=== PATIENT | female | born 1970 | race Caucasian/White ===

== ENCOUNTER 2017-10-26 18:20 | Inpatient (IN) | payer BC ==
[2017-10-26] MEDS ORDERED: ALTEPLASE 100 MG/100 ML VIAL IV ONE ×2 (18:26→18:34)
[2017-10-26] MEDS ORDERED: LIDOCAINE 2% 100 MG/5 ML SYR ONE (18:35)
[2017-10-26] MEDS ORDERED: fentaNYL 100 MCG/2 ML INJ ONE (18:35)
[2017-10-26] MEDS ORDERED: niCARdipine/NACL/200 ML BAG IV ONE (18:38)
--- NOTE | 2017-10-26 18:38 | EDPHY ---
H & P Time Seen by Provider: 10/26/17 18:24 HPI/ROS: HPI Stroke alert, left-sided weakness. 47-year-old female by private vehicle with her . reports that 10 min prior to arrival at approximately 6:10 p.m., the patient was at the refrigerator holding a carton of milk when she suddenly dropped it and appeared to have left-sided weakness and started slurring her speech. The patient denies headache. She is not on antiplatelet or anticoagulation medication. ROS: Constitutional: No fever, no chills. As above. Eyes: No discharge. No changes in vision. ENT: No sore throat. No nasal congestion or rhinorrhea. Respiratory: No cough. No shortness of breath. Cardiac: No chest pain, no palpitations. Gastrointestinal: No abdominal pain, no vomiting, no diarrhea. Genitourinary: No hematuria. No dysuria or increased frequency with urination. Musculoskeletal: No back pain. No neck pain. No myalgias or arthralgias. Skin: No rashes. Neurological: No headache. As above. Past medical history: Anxiety. PTSD. She takes alprazolam and Wellbutrin. Social history: Nonsmoker. Here with her . No alcohol today. Physical Exam: General Appearance: Drowsy, not in distress. Response to questioning was short answers and dysarthric speech. This patient appears generally well- hydrated and well-nourished. Head: Normocephalic atraumatic. Eyes: Pupils equal and round at 3-2 mm bilaterally, no pallor or injection. No lid edema, erythema or injection. No nystagmus. ENT, Mouth: Mucous membranes are moist. The pharyngeal tissues are unremarkable. No edema or swelling. No asymmetry suggestive of abscess. No erythema or exudates. Respiratory: There are no retractions, lungs are clear to auscultation with good air movement bilaterally. Cardiovascular: Regular rate and rhythm. No murmur. Gastrointestinal: Abdomen is soft and nontender, no masses, bowel sounds normal. No focal tenderness at McBurney's point. No Galarza sign. Neurological: Marked motor weakness involving the left upper and left lower extremity. Expressive aphasia. Skin: Warm and dry, no rashes. Musculoskeletal: Neck is supple and nontender. Extremities are symmetrical. All joints range without pain or impingement. Psychiatric: No agitation. Database: EKG: EKG time is 6:41 p.m.; EKG shows a narrow complex normal sinus rhythm with a ventricular rate of 87. 1st degree block noted. Nonspecific intraventricular conduction delay noted. The QRS, QT intervals are within normal limits. There are no ST-T wave changes indicative of ischemic or injury pattern. No evidence of right heart strain. Interpreted by me. Imaging: CT scan of head without contrast: Significant for a right-sided intraparenchymal bleed involving the thalamus/basal ganglia. She does not have a significant shift. Results were discussed with staff radiologist Dr. Raudel Cox. Procedures: Emergency department course: IV established, advanced airway did bedside, patient placed on a night monitor , patient placed on oxygen at 4 L by nasal cannula. After my initial assessment patient sent for noncontrast CT scan of head. Stroke alert protocol initiated. 6:25 p.m., discussed case with [place] neurologist. Results of CT scan and hemorrhagic stroke discussed. Patient is not a tPA candidate. 6:30 p.m., patient's initial blood pressure 220/135. Nicardipine drip initiated at 5 milligrams/hour with target BP of 140-160 systolic. 6:35 p.m., spoke with on-call neurosurgeon Dr. Aubrey Burrows. He recommends blood pressure control as above and admit to hospitalist service with Neurosurgery and Neurology to consult. He does not recommend antiepileptic medication at this time. 7:00 p.m., patient re-evaluated. Blood pressure 149/95 on 7.5 milligrams/hour nicardipine. Eyes are closed. But responds appropriately to questions. Denies pain. Hospitalist paged. 7:15 p.m., spoke with hospitalist. Patient accepted for admission to the ICU under the care of the hospitalist service. Neuro surgery to follow. No change in the patient's neurologic status from 7:00 p.m. Evaluate. Systolic blood pressure currently 158. Patient admitted to the ICU in stable but guarded condition. Differential Diagnosis: The differential diagnosis on this patient includes but is not limited to hemorrhagic CVA. Thrombotic CVA, seizure unlikely. This represents a partial list of diagnoses considered. These considerations are based on history, physical exam, past history, reassessment and diagnostic testing. Constitutional: Initial Vital Signs Temperature (C) 36.4 C 05/17/18 18:20 Heart Rate 77 10/26/17 18:20 Respiratory Rate 14 10/26/17 18:20 Blood Pressure 186/117 H 10/26/17 18:20 O2 Sat (%) 96 10/26/17 18:20 O2 Delivery Mode Non-Rebreather Mask O2 (L/minute) 100 Allergies/Adverse Reactions: No Known Allergies Allergy (Unverified 10/26/17 18:33) Home Medications: Medication Instructions Recorded Ibuprofen [Motrin (*)] 400 - 600 mg PO DAILY PRN 10/26/17 Loratadine/Pseudoephedrine 1 each PO BID PRN 10/26/17 [Claritin-D 12 Hour Tablet] buPROPion XL [Wellbutrin Xl] 150 mg PO DAILY 10/26/17 clonazePAM [Klonopin (*)] 0.25 - 0.5 mg PO BID PRN 10/26/17 Medical Decision Making - Diagnostics Imaging Results: Imaging Impressions Chest X-Ray 10/26/17 18:25 Impression: Hypoventilated clear lungs. Head CT 10/26/17 18:25 Impression: 1. Large intraparenchymal hemorrhage centered in the right basal ganglia extending superiorly into the centrum semiovale. Differential diagnosis for etiology consists of hypertension, underlying mass, or vascular malformation. 2. Trace subarachnoid hemorrhage along the right sylvian fissure. 3. Minimal surrounding mass effect and 2 to 3 mm of right to left shift. 4. 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 Findings discussed with Emergency Department physician, Yash Dewitt MD, on 10/26/2017, 18:31. Critical Care Time: I spent a total of 42 minutes of critical care time in obtaining history, performing a physical exam, bedside monitoring of interventions, collecting and interpreting tests and discussion with consultants but not including time spent performing procedures. - Data Points Laboratory Results: Laboratory Results 10/26/17 18:30 10/26/17 18:30 10/26/17 10/26/17 10/26/17 18:30 18:30 18:30 WBC 6.95 10^3/uL 10^3/uL (3.80-9.50) RBC 4.20 10^6/uL 10^6/uL (4.18-5.33) Hgb 13.8 g/dL g/dL (12.6-16.3) Hct 39.1 % % (38.0-47.0) MCV 93.1 fL fL (81.5-99.8) MCH 32.9 pg pg (27.9-34.1) MCHC 35.3 g/dL g/dL (32.4-36.7) RDW 12.3 % % (11.5-15.2) Plt Count 285 10^3/uL 10^3/uL (150-400) MPV 9.4 fL fL (8.7-11.7) Neut % (Auto) 52.3 % % (39.3-74.2) Lymph % (Auto) 35.8 % % (15.0-45.0) [place] % (Auto) 9.2 % % (4.5-13.0) Eos % (Auto) 2.0 % % (0.6-7.6) Baso % (Auto) 0.6 % % (0.3-1.7) Nucleat RBC Rel Count 0.0 % % (0.0-0.2) Absolute Neuts (auto) 3.63 10^3/uL 10^3/uL (1.70-6.50) Absolute Lymphs (auto) 2.49 10^3/uL 10^3/uL (1.00-3.00) Absolute Monos (auto) 0.64 10^3/uL 10^3/uL (0.30-0.80) Absolute Eos (auto) 0.14 10^3/uL 10^3/uL (0.03-0.40) Absolute Basos (auto) 0.04 10^3/uL 10^3/uL (0.02-0.10) Absolute Nucleated RBC 0.00 10^3/uL 10^3/uL (0-0.01) Immature Gran % 0.1 % % (0.0-1.1) Immature Gran # 0.01 10^3/uL 10^3/uL (0.00-0.10) PT 12.4 SEC SEC (12.0-15.0) INR 0.90 (0.83-1.16) Sodium 129 mEq/L L mEq/L (135-145) Potassium 4.2 mEq/L mEq/L (3.3-5.0) Chloride 91 mEq/L L mEq/L (97-110) Carbon Dioxide 27 mEq/l mEq/l (22-31) Anion Gap 11 mEq/L mEq/L (8-16) BUN 15 mg/dL mg/dL (7-23) Creatinine 0.8 mg/dL mg/dL (0.6-1.0) Estimated GFR > 60 Glucose 97 mg/dL mg/dL (70-100) Calcium 9.9 mg/dL mg/dL (8.5-10.4) Medications Given: Potassium Chloride/Sodium Chloride (Ns W/ 20 Kcl/L) 1,000 mls @ 75 mls/hr IV CONT FREDDIE Stop: 04/24/18 19:29 Last Admin: 10/26/17 20:34 Dose: 1,000 mls Discontinued Medications Nicardipine/Sodium Chloride (Cardene 0.1 Mg/Ml (Premix)) 200 mls @ 0 mls/hr IV EDNOW ONE; Titrate PRN Reason: Protocol Stop: 10/26/17 18:40 Last Admin: 10/26/17 18:43 Dose: 200 mls Departure - Departure Disposition: [facility] Inpatient Acute Clinical Impression: Hemorrhagic cerebrovascular accident (CVA)
[2017-10-26] MEDS ORDERED: niCARdipine/NACL 200 ML IV ONE (18:39)
[2017-10-26 18:47] LABS: PLATELET COUNT 285 10^3/uL (150-400)
[2017-10-26 18:56] LABS: INR 0.9 (0.83-1.16); PROTIME(PATIENT) 12.4 SEC (12.0-15.0)
--- NOTE | 2017-10-26 18:58 | CPEKG ---
Heart Rate: 87 RR Interval: 690 P-R Interval: 220 QRSD Interval: 114 QT Interval: 400 QTC Interval: 482 P [place]: 37 QRS [place]: 4 T Wave [place]: 44 EKG Severity - ABNORMAL ECG - EKG Impression: SINUS RHYTHM EKG Impression: FIRST DEGREE AV BLOCK EKG Impression: PROBABLE LEFT ATRIAL ABNORMALITY EKG Impression: NONSPECIFIC INTRAVENTRICULAR CONDUCTION DELAY EKG Impression: LEFT VENTRICULAR HYPERTROPHY Electronically Signed By: Go Mendez 26-Oct-2017 18:58:14
[2017-10-26] MEDS ORDERED: ONDANSETRON DISINTEGRATING 4 MG TAB PO PRN (19:22)
[2017-10-26] MEDS ORDERED: LORazepam 2 MG/ML INJ IVP PRN (19:22)
[2017-10-26] MEDS ORDERED: ONDANSETRON 4 MG/2 ML VIAL IVP PRN (19:22)
[2017-10-26] MEDS ORDERED: LORazepam 0.5 MG TAB PO PRN (19:22)
[2017-10-26] MEDS: NS W/ 20 KCl/L 1,000 ML IV SCH (20:34)
--- NOTE | 2017-10-26 20:40 | PDGENHP ---
History and Physical - Chief Complaint stroke alert - History of Present Illness 47-year-old female with hx of untreated HTN p/w reportiing that 10 min prior to arrival at approximately 6:10 p.m., the patient was at the refrigerator holding a cart of milk when she suddenly dropped it and appeared to have left-sided weakness and started slurring her speech. The patient denies headache. She is not on antiplatelet or anticoagulation medication. In the E.D. CT Brain reveals intraparenchymal hemorrhage affecting the right basal ganglia. Dr. Burrows with NS was consulted by the E.D. and per their report no indication for urgent surgery is present. BP was slightly elevated on admission and has been controlled with Nicardipine. Per ED report, NS did not recommend antiepileptic or other meds She is seen in the ICU and continues to have inability to move her LUE and left lower extremity. She seems to have some difficulty with speech BP is in the 140's systolic Past medical history: Anxiety. PTSD. She takes alprazolam and Wellbutrin. HTN (untreated) Social history: Nonsmoker. Here with her . daily social ETOH FmHx: grandmother with stroke in her 80's History Information - Allergies/Home Medication List Allergies/Adverse Reactions: No Known Allergies Allergy (Unverified 10/26/17 18:33) Home Medications: Ibuprofen [Motrin (*)] 400 - 600 mg PO DAILY PRN 10/26/17 [Last Taken 10/26/17] Loratadine/Pseudoephedrine [Claritin-D 12 Hour Tablet] 1 each PO BID PRN [Last Taken Unknown] buPROPion XL [Wellbutrin Xl] 150 mg PO DAILY 10/26/17 [Last Taken Unknown] clonazePAM [Klonopin (*)] 0.25 - 0.5 mg PO BID PRN 10/26/17 [Last Taken Unknown] I have personally reviewed and updated: medical history, social history - Social History Smoking Status: Never smoked Review of Systems Review of Systems: ROS: 10pt was reviewed & negative except for what was stated in HPI & below Physical Exam Physical Exam: Temp Pulse Resp BP Pulse Ox 36.5 C 83 16 137/75 H 100 10/26/17 19:40 10/26/17 20:00 10/26/17 20:00 10/26/17 20:00 10/26/17 20:00 O2 (L/minute) 2 Constitutional: no apparent distress Eyes: PERRL, EOMI Ears, Nose, Mouth, Throat: moist mucous membranes Cardiovascular: regular rate and rhythym, No edema Respiratory: no respiratory distress, no rales or rhonchi, clear to auscultation Gastrointestinal: normoactive bowel sounds, soft, non-tender abdomen Skin: warm Neurologic: AAOx3, other (cant move her left upper extremity or LLE. Some difficulty with speech. Alert and oriented x 3. Able to follow commands. ) Psychiatric: not encephalopathic Lymph, Heme, Immunologic: No petechiae Lab Data & Imaging Review 10/26/17 18:30 10/26/17 18:30 WBC 6.95 10^3/uL (3.80-9.50) 10/26/17 18:30 RBC 4.20 10^6/uL (4.18-5.33) 10/26/17 18:30 Hgb 13.8 g/dL (12.6-16.3) 10/26/17 18:30 Hct 39.1 % (38.0-47.0) 10/26/17 18:30 MCV 93.1 fL (81.5-99.8) 10/26/17 18:30 MCH 32.9 pg (27.9-34.1) 10/26/17 18:30 MCHC 35.3 g/dL (32.4-36.7) 10/26/17 18:30 RDW 12.3 % (11.5-15.2) 10/26/17 18:30 Plt Count 285 10^3/uL (150-400) 10/26/17 18:30 MPV 9.4 fL (8.7-11.7) 10/26/17 18:30 Neut % (Auto) 52.3 % (39.3-74.2) 10/26/17 18:30 Lymph % (Auto) 35.8 % (15.0-45.0) 10/26/17 18:30 [place] % (Auto) 9.2 % (4.5-13.0) 10/26/17 18:30 Eos % (Auto) 2.0 % (0.6-7.6) 10/26/17 18:30 Baso % (Auto) 0.6 % (0.3-1.7) 10/26/17 18:30 Nucleat RBC Rel Count 0.0 % (0.0-0.2) 10/26/17 18:30 Absolute Neuts (auto) 3.63 10^3/uL (1.70-6.50) 10/26/17 18:30 Absolute Lymphs (auto) 2.49 10^3/uL (1.00-3.00) 10/26/17 18:30 Absolute Monos (auto) 0.64 10^3/uL (0.30-0.80) 10/26/17 18:30 Absolute Eos (auto) 0.14 10^3/uL (0.03-0.40) 10/26/17 18:30 Absolute Basos (auto) 0.04 10^3/uL (0.02-0.10) 10/26/17 18:30 Absolute Nucleated RBC 0.00 10^3/uL (0-0.01) 10/26/17 18:30 Immature Gran % 0.1 % (0.0-1.1) 10/26/17 18:30 Immature Gran # 0.01 10^3/uL (0.00-0.10) 10/26/17 18:30 PT 12.4 SEC (12.0-15.0) 10/26/17 18:30 INR 0.90 (0.83-1.16) 10/26/17 18:30 Sodium 129 mEq/L (135-145) L 10/26/17 18:30 Potassium 4.2 mEq/L (3.3-5.0) 10/26/17 18:30 Chloride 91 mEq/L (97-110) L 10/26/17 18:30 Carbon Dioxide 27 mEq/l (22-31) 10/26/17 18:30 Anion Gap 11 mEq/L (8-16) 10/26/17 18:30 BUN 15 mg/dL (7-23) 10/26/17 18:30 Creatinine 0.8 mg/dL (0.6-1.0) 10/26/17 18:30 Estimated GFR > 60 10/26/17 18:30 Glucose 97 mg/dL (70-100) 10/26/17 18:30 Calcium 9.9 mg/dL (8.5-10.4) 10/26/17 18:30 Assessment & Plan Assessment: #Hemorrhagic cerebrovascular accident (CVA) (Acute) -LUE and LLE weakness -Expressive Aphasia #HTN, untreated #Hyponatremia, in setting of Euvolemia Plan: Admit ICU Nicardipine drip, goal BP 140's-160's systolic NS to consult repeat imaging per NS tomorrow Check lipid panel, A1C NPO for now until cleared PT/OT/Speech urine studies for further eval of hyponatremia SCD's total critical care time spent on the mgmt of this patient with acute CVA and on a Nicardipine drip is 50 minutes
[2017-10-27 04:36] LABS: PLATELET COUNT 275 10^3/uL (150-400)
--- NOTE | 2017-10-27 06:00 | GCON ---
[f rep st] CONSULTATION DATE OF CONSULTATION: 10/26/2017 CONSULTING SERVICE: Emergency Medicine. AV SPECIALIST: Neurosurgery, Dr. Maciel. REASON FOR CONSULT: Right basal ganglia hemorrhage in setting of hypertensive emergency. HISTORY OF PRESENT ILLNESS: The patient is a 47-year-old female brought in by her , reported that at approximately 6:10 this evening, she was at the refrigerator holding a carton of milk and the n suddenly dropped it and appeared to have left-sided weakness and slurred speech. Patient is denyin g any headaches. She is not taking any anticoagulants. When she presented, she was found to have sy stolic blood pressure greater than 200. A head CT was performed with findings consistent with a righ t basal ganglia hemorrhage without significant midline shift nor mass effect. The bleed itself is si zable. PAST MEDICAL AND SURGICAL HISTORY: Per HPI, anxiety, posttraumatic stress disorder. HOME MEDICATIONS: Xanax and Wellbutrin. CODE STATUS: Full. ALLERGIES: No known drug allergies. SOCIAL HISTORY: Nonsmoker. . denies extensive alcohol or drug abuse. FAMILY HISTORY: No known strokes in the family. REVIEW OF SYSTEMS: Ten points were reviewed with the . Unable to obtain from the patient giv en her impaired state post stroke. PHYSICAL EXAM: VITALS: Current blood pressure is 145/96, heart rate is 89. The patient's respirato ry rate is 14, she is saturating 99% on a non-rebreather. NEUROLOGIC: Patient has eyes closed. She will open them to open voice. She will regard me in her left hemifield, but prefers the right field . She has equal and reactive pupils. Has a left-sided facial droop. She follows commands briskly i n the right upper and right lower extremity, but is densely paretic on the left upper and lower extre mities. LABS: White blood cell count 6.9, hemoglobin 13.8, platelet count 285. INR 0.9. Sodium is 129, pot assium is 4.2, BUN is 15, creatinine is 0.8, glucose is 97. REVIEW OF IMAGING: I reviewed the patient's noncontrasted head CT and agree that she has a large bas al ganglia hemorrhage on the right side consistent with her hypertensive presentation. She has signs of old strokes in the left caudate nucleus as well. IMPRESSION/PLAN: Rgmsn[age][id number]-old female who presents with a large right basal ganglia hemorrhag e in the setting of systolic hypertension and hypertensive emergency with corresponding dense left he miparesis. She will be admitted to the ICU under Medicine for tight blood pressure control, on a Car dene drip, less than 140 systolic strictly. She can have a repeat head CT with CT angiogram tomorrow morning to rule out underlying vascular lesion as the cause of her stroke, although I suspect this i s hypertensive given her presentation and the location of the bleed. Stroke Neurology consult can be considered. We are following along. /[id number]/MODL
--- NOTE | 2017-10-27 07:52 | NEUSURGPN ---
Assessment/Plan: 47F with right BG bleed with hypertension. Left sided neglect and weakness -CT angio pending -SBP goal <140 -PT/OT -Appreciate neurology/medicine input -Occasional high UOP, will continue to monitor -Discussed with Dr. Maciel -Please notify NS with any change in neuro/motor exam Subjective: Denies any pain Objective: NAD, A&Ox3, left facial droop, PERRLA, EOMI, Left UE and LE /5, RUE and RLE 10/14 Catheter Insertion Date: 10/26/17 - Physician Discussed Patient with : Janell Neurosurgery Physical Exam - Vitals, I&O, Labs I and O 10/26/17 10/27/17 10/28/17 05:59 05:59 05:59 Intake Total 1130 Output Total 2725 Balance -1595 Weight 72.5 kg Intake: IV Infused (ml) 1130 NS W/ 20 KCl/L 1,000 ml @ 980 75 mls/hr IV CONT FREDDIE Rx #:[id number] niCARdipine/NACL 200 ml @ 150 Titrate IV CONT FREDDIE Rx#: [id number] Output: Urine (ml) 2725 Catheter 2725 Other: Number of Voids Incontinence 1 Vital Signs Temp Pulse Resp BP Pulse Ox 37.0 C 72 12 137/76 H 97 10/27/17 04:00 10/27/17 06:00 10/27/17 06:00 10/27/17 06:00 10/27/17 06:00 Laboratory Results 10/27/17 04:25 10/27/17 04:25 ICD10 Worksheet Patient Problems: Problems Problem Status Onset Hemorrhagic cerebrovascular accident (CVA) Acute
--- NOTE | 2017-10-27 09:29 | ASMTCASEMG ---
Living Arrangements What is your living Answers: With Spouse arrangement? Who do you live with? Type Of Residence What kind of residence do Answers: Apartment you live in? Discharge Plan Comments Coordination Status Comments Notes: Patient is a 47yo female who was admitted for hemorrhagic cerebrovascular accident, LUE and LLE weakness, expressive aphasia, HTN, untreated, and hyponatremia.PT/OT/TATTOO AND BODY ARTIST have been ordered. D/C needs TBD. CM will follow. Date Signed: 10/27/2017 09:29 AM Electronically Signed By:Oma Slater LCSW
--- NOTE | 2017-10-27 10:19 | PDMN ---
Medical Necessity Medical necessity: Patient meets inpatient criteria per physician note and [facility] M -85 Stroke: Hemorrhagic - 3 days - (patient presents with sudden L hemiparesis and slurred speech; CT shows R basal ganglia hemorrhage, likely due to hypertensive emergency; anticipated LOS > 2 midnights for IV Cardene gtt for B/ P control, PT/OT/ST.)
[2017-10-27] MEDS ORDERED: IOPAMIDOL (ISOVUE 370) 100 ML BTL IV ONE (11:08)
[2017-10-27] MEDS: niCARdipine/NACL 200 ML IV SCH ×4 (12:20→22:11)
--- NOTE | 2017-10-27 15:28 | GCON ---
[f rep st] CONSULTATION PULMONARY/CRITICAL CARE CONSULTATION DATE OF CONSULTATION: 10/27/2017 REFERRING PHYSICIAN: Yehuda Garcia MD REASON FOR CONSULTATION: Evaluation and management of hypertension status post stroke. HISTORY: The patient is a 47-year-old woman with a history of untreated hypertension who was in her usual state of good health until yesterday evening when she was standing at the refrigerator holding some milk when she suddenly dropped it and had left-sided weakness and slurred speech. She presented immediately to the emergency department where a CT scan demonstrated intraparenchymal hemorrhage in the right basal ganglia. Neurosurgery was consulted and no surgical intervention was planned. She had severe hypertension at admission, with initial blood pressure of 186/117 and subsequent blood pressure of 207/110. She was started on nicardipine with a goal of keeping her systolic blood pressure less than 140, and this has been accomplished with the exception of a recent increase in systolic blood sugar to the 150s to 160s after her CT scan of the head this morning, at which point, nicardipine was restarted. The patient currently denies any headache and feels well with the exception of the weakness and dysarthria. She has been able to start eating. PAST MEDICAL HISTORY: 1. Depression/anxiety 2. PTSD 3. Hypertension. MEDICATIONS: At the time of admission, Claritin-D, bupropion, clonazepam, and ibuprofen. ALLERGIES: None. SOCIAL HISTORY: The patient is a nonsmoker. She drinks alcohol occasionally. FAMILY HISTORY: Unremarkable. REVIEW OF SYSTEMS: A 10-point review of systems adds nothing to the history of present illness. PHYSICAL EXAMINATION: GENERAL: The patient is awake, alert, in no acute distress. VITAL SIGNS: Her blood pressure is 131/73, heart rate 76, oxygen saturations are 100% on room air. HEENT: Normocephalic and atraumatic. No icterus. NECK: No adenopathy. Trachea is midline. CHEST: Clear to auscultation. CARDIAC: Regular rate and rhythm without murmur. ABDOMEN: Soft, nontender. Bowel sounds are present. EXTREMITIES: No clubbing, cyanosis, or edema. NEURO: The patient is awake, alert, and oriented x3. She has a left facial droop and 0/ 5 to 1/5 strength in her left upper and lower extremities with normal strength in her right. LABORATORY: CBC is normal. Chemistry group is remarkable for sodium of 133, up from 129. A glucose is 116. An INR is 0.9. A urine osmolality was [address] scan and CT angiogram of the head today shows a right basal ganglia hemorrhage with some mass effect/shift, partial compression of the ventricle. The degree of hemorrhage is slightly greater than last night. Images were reviewed by me. ASSESSMENT: 1. Acute right basal ganglia bleed. Patient has been seen by Neurosurgery, and it is not felt that there is an indication for urgent surgical intervention. 2. Hypertension. The patient has chronic hypertension. This could have been exacerbated by her use of oral decongestant. This has been well controlled with nicardipine. She was off it for a while but is now back on, and her blood pressure is well controlled. 3. Dysphagia. The patient is on a pureed diet which she is tolerating well. 4. Anxiety/depression. The patient is usually on Wellbutrin would like to get that started. RECOMMENDATIONS: 1. Continue nicardipine p.r.n. 2. Speech Therapy to continue to follow and make recommendations regarding advancing diet. 3. We will resume Wellbutrin. 4. Hold oral decongestants and anti-platelet agents. /[id number]/MODL and [id number]/MODL [facility]
--- NOTE | 2017-10-27 18:07 | HOSPPROG ---
Hospitalist Progress Note Assessment/Plan: DIAGNOSES: # Hemorrhagic cerebrovascular accident (CVA) (Acute) * LUE and LLE paralysis persist, along with left-sided neglect * Expressive Aphasia is partial she is able to communicate today * Has been able to start eating after swallow eval with moist pureed textured foods # Hypertensive Emergency * untreated hypertension at home * In addition she has been using decongestant at home and wonder if this may be causing higher blood pressures there * Currently requiring ongoing use of Cardene drip for goal of systolic less than 140 * Want to add some oral medication probably tomorrow depending on stability of blood pressures in neurologic status # Hyponatremia, in setting of Euvolemia, with low urine osmoles and fairly high urine sodium * Improving so far today with some oral fluid restriction but is getting some IV saline in case there is onset of DI # history of anxiety disorder and PTSD Seen today on hospitalist rounds and multidisciplinary ICU rounds Reviewed in detail with Dr. Estuardo Foster PLANS: Continue Cardene for systolic blood pressure less than 140 Continue physical occupational therapies Continue saline, follow sodium closely Will resume her medicines for anxiety PTSD DVT prophylaxis with mechanical only due to her bleed She will need to avoid decongestants in the future and start on chronic management with medicines for her blood pressure SUBJECTIVE: The patient is now able to speak, tells me that she is comfortable, no change in her left side paralysis Mild headache but no other pain No nausea OBJECTIVE Vitals reviewed: Blood pressure being held to systolic less than 140 on a Cardene drip, otherwise stable vitals without fever 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 Checker, my review: Sinus Exam: alert oriented sitting up in bed and eating some applesauce with the assistance of her who is spooning it to her Still with facial droop and paralysis of the left limbs unchanged, speech is audible and intelligible and she is getting appropriate words out with appropriate sentence structure for limited conversation skin warm dry color ok resps not labored lungs clear BSs heart regular abd soft nondistended nontender, bowel sounds present limbs warm, no edema iv site ok Laboratory data: Sodium up slightly at 132., otherwise stable CBC and Chem panel CT angiogram of head and neck were done today, I reviewed images with Dr. Simmons radiologist: There is a very slight increase in the size of her hemorrhage along with slight increase in edema, still some midline shift, no vascular abnormalities of significance noted Objective: Vital Signs Temp Pulse Resp BP Pulse Ox 37.0 C 83 14 125/67 H 99 10/27/17 04:00 10/27/17 17:00 10/27/17 17:00 10/27/17 17:00 10/27/17 17:00 Laboratory Results 10/27/17 04:25 10/27/17 04:25 10/26/17 10/27/17 10/28/17 06:59 06:59 06:59 Intake Total 1130 1839 Output Total 8869 9220 Balance -1595 -711 PT 12.4 SEC (12.0-15.0) 10/26/17 18:30 INR 0.90 (0.83-1.16) 10/26/17 18:30 - Time Spent With Patient Time Spent with Patient: greater than 35 minutes Time Spent with Patient: Greater than 35 minutes spent on this patients care, greater than 50% of time spent counseling, educating, and coordinating care regarding the above mentioned plan. ICD10 Worksheet Patient Problems: Problems Problem Status Onset Hemorrhagic cerebrovascular accident (CVA) Acute
[2017-10-28] MEDS: NS W/ 20 KCl/L 1,000 ML IV SCH ×2 (01:53→13:54)
[2017-10-28] MEDS ORDERED: BISACODYL 10 MG SUPP PR PRN (08:33)
[2017-10-28] MEDS ORDERED: MAGNESIUM HYDROXIDE 30 ML UDCUP PO PRN (08:33)
[2017-10-28] MEDS ORDERED: POLYETHYLENE GLYCOL 3350 17 GM PKT PO PRN (08:33)
[2017-10-28] MEDS ORDERED: LACTULOSE 20 GM/30 ML UDCUP PO PRN (08:33)
--- NOTE | 2017-10-28 08:50 | NEUSURGPN ---
Assessment/Plan: Assessment: 47 yo F with right BG bleed a/w hypertension. Left sided neglect and weakness Plan: -CT angio shows slight increase with shift, no vascular malformation -repeat CT ordered this am to check on stability -SBP goal <140 -Na 133 as last reading-ordered repeat labs for this am-RN to call with CT results and Na levels -PT/OT-CPM -Appreciate neurology/medicine input -Occasional high UOP, will continue to monitor -Discussed with Dr. Maciel -updated -will consider Na supplementation if Na is not in the 140-145 range -Please notify NS with any change in neuro/motor exam Subjective: No new complaints or concerns. No f/c/n/v/d. No new events per RN Objective: NAD, A&Ox3, left facial droop PERRLA, EOMI, Left UE and LE 1/5, slight supervisor specialty plant to left hand, RUE and RLE 5/5 Neuro Check Frequency: per routine Urinary Catheter in Place: Yes Urinary Catheter Indication: Other (Use Comment) (weakness to left side) Catheter Insertion Date: 10/26/17 - Physician Discussed Patient with : Janell Neurosurgery Physical Exam - Vitals, I&O, Labs I and O 10/27/17 10/28/17 10/29/17 05:59 05:59 05:59 Intake Total 1130 3384 Output Total 2725 4100 Balance -1595 -716 Weight 72.5 kg Intake: Oral (ml) 600 IV Infused (ml) 1130 2784 NS W/ 20 KCl/L 1,000 ml @ 980 2154 75 mls/hr IV CONT FREDDIE Rx #:[id number] niCARdipine/NACL 200 ml @ 150 630 Titrate IV CONT FREDDIE Rx#: [id number] Output: Urine (ml) 2725 4100 Catheter 2725 4100 Other: Number of Voids Incontinence 1 Vital Signs Temp Pulse Resp BP Pulse Ox 37.4 C 80 12 148/83 H 100 10/28/17 00:00 10/28/17 07:00 10/28/17 07:00 10/28/17 07:00 10/28/17 07:00 Laboratory Results 10/27/17 04:25 10/27/17 04:25 ICD10 Worksheet Patient Problems: Problems Problem Status Onset Hemorrhagic cerebrovascular accident (CVA) Acute
[2017-10-28] MEDS: niCARdipine/NACL 200 ML IV SCH ×5 (10:54→19:33)
[2017-10-28] MEDS ORDERED: ALTEPLASE 2 MG VIAL IVP PRN (11:01)
[2017-10-28] MEDS: SODIUM CHLORIDE 1,000 MG TAB PO SCH ×2 (12:20→17:20)
[2017-10-28] MEDS: SENNOSIDES/DOCUSATE SODIUM TAB PO SCH ×2 (12:20→20:18)
[2017-10-28] MEDS: SODIUM Cl 3% 500 ML IV SCH (12:30)
--- NOTE | 2017-10-28 13:46 | PDINTPN ---
Partition Setter Progress Note Assessment/Plan: Assessment: Right basal ganglia hemorrhage: Presented 10/26. Has increased slightly on subsequent CTs. Has dense left paresis. BP managed with Nicardipine. Hypertension: Chronic, untreated. ? exacerbated by Sudafed. Managed with Nicardipine, goal SBP <140. Nutrition: Able to take purees. Fairly good intake. Plan: Start 3% NS per neurosurgery, goal Na low-mid 140s. Continue Nicardipine. Follow CTs. D/W , nurse, hospitalist 10/28/17 13:46 Subjective: More somnolent, no complaints of headache. Taking pureed diet well Objective: Vital Signs Temp Pulse Resp BP Pulse Ox 37.4 C 91 14 138/74 H 98 10/28/17 00:00 10/28/17 12:00 10/28/17 12:00 10/28/17 12:00 10/28/17 12:00 Laboratory Results 10/28/17 09:00 10/28/17 09:00 10/27/17 10/28/17 10/29/17 05:59 05:59 05:59 Intake Total 1130 3384 Output Total 2725 4100 Balance -1595 -716 PT 12.4 SEC (12.0-15.0) 10/26/17 18:30 INR 0.90 (0.83-1.16) 10/26/17 18:30 CHT: Slightly increased hemorrhage, edema. Images reviewed by me. Physical Exam - Physical Exam General Appearance: No alert (sleeping but arousable and appropriate.) EENT: normal ENT inspection Neck: normal inspection Respiratory: lungs clear, normal breath sounds Cardiac/Chest: regular rate, rhythm, No edema Abdomen: normal bowel sounds, non-tender Skin: normal color, warm/dry Extremities: normal inspection Neuro/Psych: oriented x 3, motor weakness (left), No alert, No normal mood/ affect (somnolent) ICD10 Worksheet Patient Problems: Problems Problem Status Onset Hemorrhagic cerebrovascular accident (CVA) Acute
--- NOTE | 2017-10-28 14:16 | HOSPPROG ---
Hospitalist Progress Note Assessment/Plan: DIAGNOSES: # Hemorrhagic cerebrovascular accident (CVA) (Acute) * LUE and LLE paralysis persist, along with left-sided neglect * Expressive Aphasia is partial, she is able to communicate reasonably well * Has been able to start eating after swallow eval with moist pureed textured foods, but did have some aspiration of water so has been placed on a thickened liquid and pureed diet; at this can can start some oral medications which will be helpful with blood pressure # Hypertensive Emergency * untreated hypertension at home, In addition she has been using decongestant at home and wonder if this may be causing higher blood pressures there * Currently requiring ongoing intermittent use of Cardene drip for goal of systolic less than 140 * will add some lisinopril at present, may need further po medication # Hyponatremia, in setting of Euvolemia, with low urine osmoles and fairly high urine sodium * still low, and given her worsening radiologic appearance of bleed needs to be treated, NSurg has ordered 3% saline drip # history of anxiety disorder and PTSD * Canal resume her Wellbutrin and some low-dose of Klonopin given her swallow eval result Seen today on hospitalist rounds and multidisciplinary ICU rounds Reviewed in detail with Dr. 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 Changed IV fluid 3% sodium chloride, PICC line has been placed for that purpose Will resume her medicines for anxiety PTSD DVT prophylaxis with mechanical only due to her bleed She will need to avoid decongestants in the future and continue chronic management with medicines for her blood pressure SUBJECTIVE: very tired after day with much activity no headache, no new or worsened neuro sxs, little change in deficits from yest if any OBJECTIVE Vitals reviewed: Has been off cardene for BP intermittently but usually only for short while, highest pressure 150s briefly, remains on Cardene now, stable pulse no fever Drafting Layout 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, my review: Sinus Exam: alert oriented this morning, asleep in bed during my 2nd visit Essentially no change in facial and left side limb paralysis, speech unchanged from yesterday skin warm dry color ok resps not labored lungs clear BSs heart regular abd soft nondistended nontender, bowel sounds present limbs warm, no edema iv site ok Laboratory data: Sodium up slightly at 134, otherwise stable CBC and Chem panel CT of head done today, I reviewed images and radiologist's report: There is a very slight increased in the largest dimension of her lesion with slight increase in blood and slight increase in edema, some shift but no herniation. Chest x-ray done after PICC line placement, I reviewed the images: PICC in good position without pneumothorax, no acute cardiac lung or pleural abnormalities Objective: Vital Signs Temp Pulse Resp BP Pulse Ox 37.4 C 80 14 130/74 H 100 10/28/17 00:00 10/28/17 13:00 10/28/17 13:00 10/28/17 13:00 10/28/17 13:00 Laboratory Results 10/28/17 09:00 10/28/17 09:00 10/27/17 10/28/17 10/29/17 06:59 06:59 06:59 Intake Total 1130 3384 Output Total 2725 4100 Balance -1595 -716 PT 12.4 SEC (12.0-15.0) 10/26/17 18:30 INR 0.90 (0.83-1.16) 10/26/17 18:30 - Time Spent With Patient Time Spent with Patient: greater than 35 minutes Time Spent with Patient: Greater than 35 minutes spent on this patients care, greater than 50% of time spent counseling, educating, and coordinating care regarding the above mentioned plan. ICD10 Worksheet Patient Problems: Problems Problem Status Onset Hemorrhagic cerebrovascular accident (CVA) Acute
[2017-10-28] MEDS ORDERED: LIDOCAINE 1% 300 MG/30 ML SDV ONE (15:35)
[2017-10-28] MEDS ORDERED: clonazePAM 0.5 MG TAB PO PRN (16:13)
[2017-10-28] MEDS: LISINOPRIL 10 MG TAB PO SCH (16:15)
[2017-10-29] MEDS: SODIUM Cl 3% 500 ML IV SCH ×2 (06:07→17:00)
[2017-10-29] MEDS: NS W/ 20 KCl/L 1,000 ML IV SCH (06:08)
--- NOTE | 2017-10-29 08:39 | NEUSURGPN ---
Assessment/Plan: Assessment: 47 yo F with right BG bleed a/w hypertension. Left sided neglect and weakness Plan: -CT angio shows slight increase with shift, no vascular malformation (from a few days ago) -repeat CT ordered yesterday showed noted increase in bleed -CT this am shows stable findings with size of blood -continued SBP goal <140 -Na 137 as last reading-increased the 3% to 40cc/hr rate -will continue to monitor Na levels -PT/OT-CPM -Appreciate neurology/medicine input -Occasional high UOP, will continue to monitor -Discussed with Dr. Maciel -updated -reviewed images again -Na range 140-145 range -Please notify NS with any change in neuro/motor exam Subjective: No new complaints overnight. No new events per RN. Objective: NAD, A&Ox3, left facial droop PERRLA, EOMI, Left UE and LE 1/5, slight assistant professor of mathematics to left hand, RUE and RLE 5/5 Neuro Check Frequency: per ordered Urinary Catheter in Place: Yes Urinary Catheter Indication: Other (Use Comment) (hemiparalysis) Catheter Insertion Date: 10/26/17 - Physician Discussed Patient with : Sandhya Neurosurgery Physical Exam - Vitals, I&O, Labs I and O 10/28/17 10/29/17 10/30/17 05:59 05:59 05:59 Intake Total 3384 3464 Output Total 4100 2200 125 Balance -716 1264 -125 Intake: Oral (ml) 600 IV Infused (ml) 2784 3464 NS W/ 20 KCl/L 1,000 ml @ 2154 1769 75 mls/hr IV CONT FREDDIE Rx #:[id number] SODIUM Cl 3% 500 ml @ 30 508 mls/hr IV CONT FREDDIE Rx#: [id number] niCARdipine/NACL 200 ml @ 630 1187 Titrate IV CONT FREDDIE Rx#: [id number] Output: Urine (ml) 4100 2200 125 Catheter 4100 2200 125 Vital Signs Temp Pulse Resp BP Pulse Ox 37.5 C 76 13 143/88 H 99 10/29/17 08:00 10/29/17 08:00 10/29/17 08:00 10/29/17 08:00 10/29/17 08:00 Laboratory Results 10/28/17 09:00 10/29/17 06:00 ICD10 Worksheet Patient Problems: Problems Problem Status Onset Hemorrhagic cerebrovascular accident (CVA) Acute
[2017-10-29] MEDS: SODIUM CHLORIDE 1,000 MG TAB PO SCH ×3 (08:45→17:53)
[2017-10-29] MEDS: SENNOSIDES/DOCUSATE SODIUM TAB PO SCH ×2 (08:45→21:16)
[2017-10-29] MEDS: LISINOPRIL 10 MG TAB PO SCH (08:45)
[2017-10-29] MEDS: buPROPion XL 150 MG TAB PO SCH (08:45)
[2017-10-29] MEDS: niCARdipine/NACL 200 ML IV SCH ×2 (09:29→17:00)
--- NOTE | 2017-10-29 10:04 | HOSPPROG ---
Hospitalist Progress Note Assessment/Plan: DIAGNOSES: # Hemorrhagic cerebrovascular accident (CVA) (Acute) * Beginning to see mild improvement in LUE paralysis and left-sided neglect; LLE not changed yet * Language doing well * Has been able to start eating after swallow eval with moist pureed textured foods, but did have some aspiration of water so has been placed on a thickened liquid and pureed diet; at this time can start some oral medications which will be helpful with blood pressure # Hypertensive Emergency * untreated hypertension at home, In addition she has been using decongestant at home and wonder if this may be causing higher blood pressures there * Currently requiring ongoing intermittent use of Cardene drip for goal of systolic less than 140 * will increase lisinopril at present, may need further po medication # Hyponatremia, in setting of Euvolemia, with low urine osmoles and fairly high urine sodium * Still below goal sodium of 140-145 * given edema will continue 3% saline, oral salt supplements, and will add oral fluid restriction of that she is taking p.o., ongoing close monitoring for now # history of anxiety disorder and PTSD * Continue her Wellbutrin and Klonopin Seen today on hospitalist rounds and multidisciplinary ICU rounds Reviewed in detail with Dr. 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 Continue 3% sodium chloride, oral salt supplements, and will add oral fluid restriction Continue e her medicines for anxiety PTSD DVT prophylaxis with mechanical only due to her bleed She will need to avoid decongestants in the future and continue chronic management with antihypertensives which have not been prescribed for her previously SUBJECTIVE: today she notes some return of movement LUE, no new deficits no headache, no other discomfort OBJECTIVE Vitals reviewed: BPs hovering just above and just below 140, vitals otherwise stable w no fever with cardine off overnight but recently restarted (lisin started yest) 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, 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: Sinus Exam: alert oriented this morning She has notable improvement in speed of response to conversation/commands, and notable improvement in L side neglect, also now w some L hand movement can close fist weakly though left upper extremity remains extremely weak all around Essentially no change in facial and left leg limb paralysis, speech good otherwise skin warm dry color ok resps not labored lungs clear BSs heart regular abd soft nondistended nontender, bowel sounds present limbs warm, no edema iv site ok Laboratory data: Sodium up 137, otherwise stable CBC and Chem panel CT of head done today, I reviewed images and radiologist's report: there is perhaps a very slight decrease edema, no change otherwise from yest Objective: Vital Signs Temp Pulse Resp BP Pulse Ox 37.5 C 85 16 149/81 H 98 10/29/17 08:00 10/29/17 09:00 10/29/17 09:00 10/29/17 09:00 10/29/17 09:00 Laboratory Results 10/28/17 09:00 10/29/17 06:00 10/28/17 10/29/17 10/30/17 06:59 06:59 06:59 Intake Total 3384 3464 Output Total 4100 2200 400 Balance -716 1264 -400 PT 12.4 SEC (12.0-15.0) 10/26/17 18:30 INR 0.90 (0.83-1.16) 10/26/17 18:30 - Time Spent With Patient Time Spent with Patient: greater than 35 minutes Time Spent with Patient: Greater than 35 minutes spent on this patients care, greater than 50% of time spent counseling, educating, and coordinating care regarding the above mentioned plan. ICD10 Worksheet Patient Problems: Problems Problem Status Onset Hemorrhagic cerebrovascular accident (CVA) Acute
[2017-10-29] MEDS ORDERED: LISINOPRIL 10 MG TAB PO ONE (10:27)
[2017-10-29] MEDS: ACETAMINOPHEN 325 MG TAB PO PRN (11:36)
--- NOTE | 2017-10-29 11:39 | PDINTPN ---
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 Has increased slightly on subsequent CTs until this morning, hemorrhage and edema stable. Has dense left paresis. BP managed with Nicardipine. Hypertension: Chronic, untreated. ? exacerbated by Sudafed. Managed with Nicardipine, goal SBP <140, is being met. Nutrition: Able to take purees, likely will liberalize today per ST. Fairly good intake. Plan: Increase 3% NS per neurosurgery, continue NaCl tabs. 1200ml fluid restriction, stop IVF. Goal Na low-mid 140s. Continue Nicardipine. Follow CTs. Advance diet per ST. D/W , nurse, hospitalist 10/29/17 11:41 Subjective: Slept well last night. Fairly good appetite. Left side still weak. Denies pain. Objective: Vital Signs Temp Pulse Resp BP Pulse Ox 37.5 C 79 14 135/71 H 100 10/29/17 08:00 10/29/17 11:00 10/29/17 11:00 10/29/17 11:00 10/29/17 11:00 Laboratory Results 10/28/17 09:00 10/29/17 06:00 10/28/17 10/29/17 10/30/17 05:59 05:59 05:59 Intake Total 3384 3464 Output Total 4100 2200 525 Balance -716 1264 -525 PT 12.4 SEC (12.0-15.0) 10/26/17 18:30 INR 0.90 (0.83-1.16) 10/26/17 18:30 CTH: Stable hemorrhage and edema. Images reviewed by me. Physical Exam - Physical Exam General Appearance: alert, no apparent distress EENT: normal ENT inspection Neck: normal inspection Respiratory: lungs clear, normal breath sounds Cardiac/Chest: regular rate, rhythm, No edema Abdomen: normal bowel sounds, non-tender, soft Skin: normal color, warm/dry Neuro/Psych: alert, normal mood/affect, motor weakness (left paresis) ICD10 Worksheet Patient Problems: Problems Problem Status Onset Hemorrhagic cerebrovascular accident (CVA) Acute
[2017-10-30] MEDS: SODIUM Cl 3% 500 ML IV SCH ×2 (02:15→13:54)
[2017-10-30] MEDS: niCARdipine/NACL 200 ML IV SCH ×2 (02:15→10:17)
--- NOTE | 2017-10-30 08:11 | NEUSURGPN ---
Assessment/Plan: Assessment: 47 yo F with right BG bleed a/w hypertension. Left sided neglect and weakness Plan: -CT angio 10/27 shows slight increase with shift, no vascular malformation -repeat CT ordered yesterday which is stable -continued SBP goal <140 -Na 140 as last reading-increased the 3% to 60cc/hr rate and will continue Na tabs -will continue to monitor Na levels Q6 hours -PT/OT-CPM -Appreciate neurology/medicine input -Occasional high UOP, will continue to monitor -Discussed with Dr. Maciel -Na range 140-150 range -Please notify NS with any change in neuro/motor exam Subjective: No new events Objective: A&Ox3 left facial droop PERRLA, EOMI, Left UE and LE /5, slight computer networking instructor to left hand RUE and RLE 10/14 Neuro Check Frequency: per routine Urinary Catheter in Place: No Catheter Insertion Date: 10/26/17 - Physician Discussed Patient with Dr.: Maciel Neurosurgery Physical Exam - Vitals, I&O, Labs I and O 10/29/17 10/30/17 10/31/17 05:59 05:59 05:59 Intake Total 3464 2748 Output Total 2200 3200 Balance 1264 -452 Intake: Oral (ml) 940 IV Infused (ml) 3464 1808 NS W/ 20 KCl/L 1,000 ml @ 1769 342 75 mls/hr IV CONT FREDDIE Rx #:[id number] SODIUM Cl 3% 500 ml @ 60 508 1138 mls/hr IV CONT FREDDIE Rx#: [id number] niCARdipine/NACL 200 ml @ 1187 328 Titrate IV CONT FREDDIE Rx#: [id number] Output: Urine (ml) 2200 3200 Catheter 2200 3200 Other: Intake Quantity Yes Sufficient Vital Signs Temp Pulse Resp BP Pulse Ox 37.1 C 69 14 133/82 H 99 10/29/17 22:00 10/30/17 07:00 10/30/17 07:00 10/30/17 07:00 10/30/17 07:00 Laboratory Results 10/28/17 09:00 10/30/17 05:12 ICD10 Worksheet Patient Problems: Problems Problem Status Onset Hemorrhagic cerebrovascular accident (CVA) Acute
[2017-10-30] MEDS: SENNOSIDES/DOCUSATE SODIUM TAB PO SCH ×2 (08:13→20:04)
[2017-10-30] MEDS: buPROPion XL 150 MG TAB PO SCH (08:13)
[2017-10-30] MEDS: SODIUM CHLORIDE 1,000 MG TAB PO SCH ×3 (08:14→18:24)
[2017-10-30] MEDS ORDERED: LISINOPRIL 20 MG TAB PO SCH (09:00)
[2017-10-30] MEDS: hydrALAZINE 20 MG/ML VIAL IVP PRN ×3 (12:12→23:28)
[2017-10-30] MEDS ORDERED: hydrALAZINE 20 MG/ML VIAL IVP PRN (12:43)
--- NOTE | 2017-10-30 13:22 | ASMTCMCOM ---
CM Note CM Note Notes: Spoke with patient and Frank about discharge planning. I explained how discharge to SNF or IPR would look and also answered specific questions about IPR. At this time, patient qualifies for IPR; however, they will have to submit for authorization from [facility]. I also helped patient and family understand what post-rehab discharge will look like (home care, private duty care, etc. . .) and encouraged them not to worry since progress will be measured daily and goals may change. They seem comfortable with the tentative discharge plan. Case Management will follow. Date Signed: 10/30/2017 01:21 PM Electronically Signed By:Rina Tiwari RN
--- NOTE | 2017-10-30 13:57 | PDINTPN ---
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 FU CT showed slight increase but clinically stable. Target SBP< 140 using nicardipine drip. Neurposurgery also trying to keep Na level high. * CVA 2/2 HTN. Currently stable. PT/OT * HTN remains on nicardipine drip with lisinopril qd. PRN hydralazine added . Would consider oral calcium channel brian to dc drip if needed. * Na- 140 today on 3% NS drip * Subjective: No complaints but minimal interaction Objective: Vital Signs Temp Pulse Resp BP Pulse Ox 37.0 C 69 15 158/96 H 99 10/30/17 08:00 10/30/17 12:00 10/30/17 12:00 10/30/17 12:00 10/30/17 12:00 Laboratory Results 10/28/17 09:00 10/30/17 05:12 10/29/17 10/30/17 10/31/17 05:59 05:59 05:59 Intake Total 3464 2748 250.3 Output Total 2200 3200 875 Balance 1264 -452 -624.7 PT 12.4 SEC (12.0-15.0) 10/26/17 18:30 INR 0.90 (0.83-1.16) 10/26/17 18:30 Physical Exam - Physical Exam General Appearance: alert, no apparent distress EENT: PERRL/EOMI Neck: supple Respiratory: lungs clear, normal breath sounds, No respiratory distress, No accessory muscle use Cardiac/Chest: regular rate, rhythm, No edema Abdomen: non-tender, soft, No distended Skin: normal color, warm/dry, No cyanosis Lymphatic: no adenopathy Extremities: No pedal edema Neuro/Psych: alert, normal mood/affect, oriented x 3 ICD10 Worksheet Patient Problems: Problems Problem Status Onset Hemorrhagic cerebrovascular accident (CVA) Acute
[2017-10-30] MEDS ORDERED: ENALAPRILAT DIHYDRATE 1.25 MG/ML VIAL ONE (15:20)
[2017-10-30] MEDS: ENALAPRILAT DIHYDRATE 1.25 MG/ML VIAL IVP PRN ×2 (15:23→21:25)
--- NOTE | 2017-10-30 17:02 | HOSPPROG ---
Hospitalist Progress Note Assessment/Plan: * Hemorrhagic CVA with left hemiparesis -will need rehab * Dysphagia -cleared for PO with thickened/pureed * HTN crisis -per neurosurgery BP goal max SBP 140-150 -DC IV Cardene gtt - change to IV hydralazine prn -increase PO lisinopril, add low dose metoprolol * Hyponatremia - 3% saline per neurosurgery * Anxiety/PTSD Subjective: No new complaints. Objective: Vital Signs Temp Pulse Resp BP Pulse Ox 37.1 C 77 15 139/91 H 99 10/30/17 14:00 10/30/17 16:30 10/30/17 16:30 10/30/17 16:30 10/30/17 16:30 Laboratory Results 10/28/17 09:00 10/30/17 05:12 10/29/17 10/30/17 10/31/17 05:59 05:59 05:59 Intake Total 3464 2748 700.3 Output Total 2200 3200 875 Balance 1264 -452 -174.7 PT 12.4 SEC (12.0-15.0) 10/26/17 18:30 INR 0.90 (0.83-1.16) 10/26/17 18:[address] - hemorrhage stable case d/w Dr. Cruz regarding BP management strategy - Physical Exam Constitutional: no apparent distress, appears nourished, not in pain Cardiovascular: regular rate and rhythym, no murmur, rub, or gallop Respiratory: no respiratory distress, no rales or rhonchi, clear to auscultation Skin: no rashes or abrasions, no fluctuance, no induration Neurologic: AAOx3, weakness, facial droop, No sensation intact bilaterally Psychiatric: interacting appropriately, not anxious, not encephalopathic, thought process linear ICD10 Worksheet Patient Problems: Problems Problem Status Onset Hemorrhagic cerebrovascular accident (CVA) Acute
[2017-10-30] MEDS: METOPROLOL TARTRATE 25 MG TAB PO SCH (18:24)
[2017-10-30] MEDS: LISINOPRIL 20 MG TAB PO SCH (20:04)
[2017-10-30] MEDS ORDERED: METOPROLOL TARTRATE 25 MG TAB PO SCH (21:00)
[2017-10-31] MEDS: SODIUM Cl 3% 500 ML IV SCH ×3 (05:41→18:12)
[2017-10-31] MEDS: hydrALAZINE 20 MG/ML VIAL IVP PRN ×3 (05:41→15:43)
[2017-10-31] MEDS: LISINOPRIL 20 MG TAB PO SCH ×2 (07:58→20:02)
[2017-10-31] MEDS: buPROPion XL 150 MG TAB PO SCH (07:58)
[2017-10-31] MEDS: ACETAMINOPHEN 325 MG TAB PO PRN (07:58)
[2017-10-31] MEDS: METOPROLOL TARTRATE 25 MG TAB PO SCH (07:59)
[2017-10-31] MEDS: SODIUM CHLORIDE 1,000 MG TAB PO SCH ×3 (07:59→18:15)
[2017-10-31] MEDS: SENNOSIDES/DOCUSATE SODIUM TAB PO SCH (08:00)
[2017-10-31] MEDS: ENALAPRILAT DIHYDRATE 1.25 MG/ML VIAL IVP PRN ×2 (08:18→14:08)
--- NOTE | 2017-10-31 10:09 | NEUSURGPN ---
Assessment/Plan: Assessment: 47 yo F with right BG bleed a/w hypertension. Left sided neglect and weakness Plan: -CT angio 10/27 shows slight increase with shift, no vascular malformation -repeat CT ordered 10/29 which is stable -continued SBP goal <140 -Na 148 as last reading-increased the 3% to 50cc/hr rate and will continue Na tabs -will continue to monitor Na levels Q6 hours -PT/OT-CPM -Appreciate neurology/medicine input -Occasional high UOP, will continue to monitor -Discussed with Dr. Maciel -Na range 140-150 range -Please notify NS with any change in neuro/motor exam Subjective: Denies any headaches, nausea. Objective: NAD A&Ox3. left sided facial droop. RUE and RLE 10/14, HUBER and LL 06/16. Catheter Insertion Date: 10/26/17 - Physician Discussed Patient with : Janell Neurosurgery Physical Exam - Vitals, I&O, Labs I and O 10/30/17 10/31/17 11/01/17 05:59 05:59 05:59 Intake Total 2748 2266.3 Output Total 3200 2975 Balance -452 -708.7 Intake: Oral (ml) 940 810 IV Infused (ml) 1808 1456.3 NS W/ 20 KCl/L 1,000 ml @ 342 75 mls/hr IV CONT FREDDIE Rx #:[id number] SODIUM Cl 3% 500 ml @ 60 1138 1366 mls/hr IV CONT FREDDIE Rx#: [id number] niCARdipine/NACL 200 ml @ 328 90.3 Titrate IV CONT FREDDIE Rx#: [id number] Output: Urine (ml) 3200 2975 Catheter 3200 2975 Other: Intake Quantity Yes Sufficient Number of Stools Bedpan 2 Vital Signs Temp Pulse Resp BP Pulse Ox 37 C 83 15 158/90 H 97 10/31/17 08:00 10/31/17 08:00 10/31/17 08:00 10/31/17 08:00 10/31/17 08:00 Laboratory Results 10/28/17 09:00 10/31/17 05:38 ICD10 Worksheet Patient Problems: Problems Problem Status Onset Hemorrhagic cerebrovascular accident (CVA) Acute
[2017-10-31] MEDS: amLODIPine BESYLATE 5 MG TAB PO SCH (14:58)
--- NOTE | 2017-10-31 15:16 | PDINTPN ---
Applications Consultant Progress Note Assessment/Plan: Assessment/plan: 47 F with poorly controlled HTN admitted 10/26/17 with dense left hemiparesis and found to have L basal ganglia hemorrhagic CVA. FU CT showed slight increase but clinically stable. Target SBP< 140 using nicardipine drip. Neurposurgery also trying to keep Na level high. * CVA 2/2 HTN. Currently stable. PT/OT. Anticipate rehab later this week * HTN- labile off nicardipine, but multiple meds attempted including vasotec/ lisinopril, metoprolol, and hydralazine prn. [facility] added this am. * Na- 148 today on 3% NS drip. Weaning off per NS rec. * 10/31/17 15:14 Subjective: up OOB today with PT. Difficulty controlling BP off cardene Objective: Vital Signs Temp Pulse Resp BP Pulse Ox 37 C 81 15 149/100 H 98 10/31/17 14:00 10/31/17 14:00 10/31/17 14:00 10/31/17 14:00 10/31/17 14:00 Laboratory Results 10/28/17 09:00 10/30/17 10/31/17 11/01/17 05:59 05:59 05:59 Intake Total 2748 2266.3 Output Total 3200 2975 Balance -452 -708.7 PT 12.4 SEC (12.0-15.0) 10/26/17 18:30 INR 0.90 (0.83-1.16) 10/26/17 18:30 Physical Exam - Physical Exam General Appearance: alert, no apparent distress EENT: PERRL/EOMI Neck: supple Respiratory: lungs clear, normal breath sounds, No respiratory distress, No accessory muscle use Cardiac/Chest: regular rate, rhythm, No edema Abdomen: non-tender, soft, No distended Skin: normal color, warm/dry, No cyanosis Lymphatic: no adenopathy Extremities: No pedal edema Neuro/Psych: alert, normal mood/affect, oriented x 3 ICD10 Worksheet Patient Problems: Problems Problem Status Onset Hemorrhagic cerebrovascular accident (CVA) Acute
[2017-10-31] MEDS: niCARdipine/NACL 200 ML IV SCH ×2 (18:08→23:30)
--- NOTE | 2017-10-31 18:27 | HOSPPROG ---
Hospitalist Progress Note Assessment/Plan: * Hemorrhagic CVA with left hemiparesis -will need rehab * Dysphagia -cleared for PO with thickened/pureed * HTN crisis -per neurosurgery BP goal max SBP 140 -IV hydralazine prn -increase PO lisinopril, metoprolol, add norvasc * Hyponatremia - 3% saline per neurosurgery * Anxiety/PTSD Subjective: No new complaints. Objective: Vital Signs Temp Pulse Resp BP Pulse Ox 36.6 C 74 13 156/87 H 96 10/31/17 18:00 10/31/17 18:00 10/31/17 18:00 10/31/17 18:00 10/31/17 18:00 Laboratory Results 10/28/17 09:00 10/31/17 14:40 10/30/17 10/31/17 11/01/17 05:59 05:59 05:59 Intake Total 2748 2266.3 Output Total 3200 2975 Balance -452 -708.7 PT 12.4 SEC (12.0-15.0) 10/26/17 18:30 INR 0.90 (0.83-1.16) 10/26/17 18:30 - Physical Exam Constitutional: no apparent distress, appears nourished, not in pain Cardiovascular: regular rate and rhythym, no murmur, rub, or gallop Respiratory: no respiratory distress, no rales or rhonchi, clear to auscultation Gastrointestinal: normoactive bowel sounds, soft, non-tender abdomen, no palpable masses Skin: no rashes or abrasions, no fluctuance, no induration Neurologic: AAOx3, weakness (complete left) Psychiatric: interacting appropriately, not anxious, not encephalopathic, thought process linear ICD10 Worksheet Patient Problems: Problems Problem Status Onset Hemorrhagic cerebrovascular accident (CVA) Acute
[2017-10-31] MEDS: METOPROLOL TARTRATE 50 MG TAB PO SCH (20:02)
[2017-11-01] MEDS: hydrALAZINE 20 MG/ML VIAL IVP PRN ×5 (04:07→22:00)
[2017-11-01] MEDS: SODIUM CHLORIDE 1,000 MG TAB PO SCH (07:42)
[2017-11-01] MEDS: buPROPion XL 150 MG TAB PO SCH (07:42)
[2017-11-01] MEDS: LISINOPRIL 20 MG TAB PO SCH ×2 (07:43→20:10)
[2017-11-01] MEDS: METOPROLOL TARTRATE 50 MG TAB PO SCH ×2 (07:44→20:11)
[2017-11-01] MEDS: amLODIPine BESYLATE 5 MG TAB PO SCH (07:44)
[2017-11-01] MEDS ORDERED: amLODIPine BESYLATE 5 MG TAB PO ONE (08:51)
[2017-11-01] MEDS ORDERED: 1/2 NS 1,000 ML IV SCH (09:00)
--- NOTE | 2017-11-01 10:01 | SOAPPROG ---
SOAP Progress Note Assessment/Plan: Assessment: 47 yo F with right sided basal ganglia hemorrhage Plan: neuro: stable and doing well overall hypernatremia: at 150 this, will continue to gradually reduce 3% and salt tabs to normalize Na, getting Q6 hour Na levels PT/OT/St head ct in am will likely need inpatient rehab appreciate Hospitalists help with medical issues. please call with neuro changes discussed with Dr Maciel 11/01/17 09:58 Subjective: no headaches, no N/V. Objective: Vital Signs Temp Pulse Resp BP Pulse Ox 37.3 C 67 16 155/75 H 96 10/31/17 22:00 11/01/17 08:00 11/01/17 08:00 11/01/17 09:06 11/01/17 08:00 Laboratory Results 10/28/17 09:00 11/01/17 05:25 10/31/17 11/01/17 11/02/17 05:59 05:59 05:59 Intake Total 2266.3 1902 Output Total 2975 2900 Balance -708.7 -998 PT 12.4 SEC (12.0-15.0) 10/26/17 18:30 INR 0.90 (0.83-1.16) 10/26/17 18:30 AAXO4, +FC PERRL, EOMI, left facial droop 5/5 right arm/leg plegic left arm/leg + light touch x 4 ICD10 Worksheet Patient Problems: Problems Problem Status Onset Hemorrhagic cerebrovascular accident (CVA) Acute
[2017-11-01] MEDS: ENALAPRILAT DIHYDRATE 1.25 MG/ML VIAL IVP PRN (13:13)
--- NOTE | 2017-11-01 13:20 | PDINTPN ---
Valve Tester Progress Note Assessment/Plan: Assessment/plan: 47 F with poorly controlled HTN admitted 10/26/17 with dense left hemiparesis and found to have L basal ganglia hemorrhagic CVA. FU CT showed slight increase but clinically stable. Target SBP< 140 using nicardipine drip. Neurposurgery also trying to keep Na level high. * CVA 2/2 HTN. Currently stable. PT/OT. Anticipate inpatient rehab later this week as BP and sodium issues resolve * HTN- labile off nicardipine, but multiple meds attempted including vasotec/ lisinopril, metoprolol, and hydralazine prn. Norvasc added 10/31 and increased * Na- Weaning off per NS rec. * Subjective: no complaints Objective: Vital Signs Temp Pulse Resp BP Pulse Ox 37.3 C 58 L 11 L 151/76 H 98 10/31/17 22:00 11/01/17 12:00 11/01/17 12:00 11/01/17 13:13 11/01/17 12:00 Laboratory Results 10/28/17 09:00 11/01/17 12:15 10/31/17 11/01/17 11/02/17 05:59 05:59 05:59 Intake Total 2266.3 1902 Output Total 2975 2900 Balance -708.7 -998 PT 12.4 SEC (12.0-15.0) 10/26/17 18:30 INR 0.90 (0.83-1.16) 10/26/17 18:30 Physical Exam - Physical Exam General Appearance: alert, no apparent distress EENT: PERRL/EOMI Neck: supple Respiratory: lungs clear, normal breath sounds, No respiratory distress, No accessory muscle use Cardiac/Chest: regular rate, rhythm, No edema Abdomen: non-tender, soft, No distended Skin: normal color, warm/dry, No cyanosis Lymphatic: no adenopathy Extremities: No pedal edema Neuro/Psych: alert, normal mood/affect, oriented x 3 ICD10 Worksheet Patient Problems: Problems Problem Status Onset Hemorrhagic cerebrovascular accident (CVA) Acute
--- NOTE | 2017-11-01 14:21 | ASMTCMCOM ---
CM Note CM Note Notes: Patient improving. Anticipate inpatient rehab later this week when the BP and sodium issues resolve. CM will follow. Date Signed: 11/01/2017 02:20 PM Electronically Signed By:Oma Slater LCSW
[2017-11-01] MEDS ORDERED: PROTOCOL POTASSIUM 1 DOSE MISC PRN (15:36)
[2017-11-01] MEDS ORDERED: POTASSIUM Cl (KCl) 50 ML IV SCH (16:45)
[2017-11-01] MEDS ORDERED: POTASSIUM CL 10 MEQ TAB PO ONE (17:00)
--- NOTE | 2017-11-01 19:27 | HOSPPROG ---
Hospitalist Progress Note Assessment/Plan: * Hemorrhagic CVA with left hemiparesis -will need rehab * Dysphagia -cleared for PO with thickened/pureed * HTN crisis -per neurosurgery BP goal max SBP 140 -IV hydralazine prn -increase PO lisinopril, metoprolol, add norvasc * Hyponatremia - 3% saline per neurosurgery * Anxiety/PTSD Subjective: No new complaints Objective: Vital Signs Temp Pulse Resp BP Pulse Ox 37.3 C 75 22 H 140/84 H 96 10/31/17 22:00 11/01/17 18:00 11/01/17 18:00 11/01/17 18:00 11/01/17 18:00 Laboratory Results 10/28/17 09:00 11/01/17 18:30 10/31/17 11/01/17 11/02/17 05:59 05:59 05:59 Intake Total 2266.3 1902 1028 Output Total 2975 2900 650 Balance -708.7 -998 378 PT 12.4 SEC (12.0-15.0) 10/26/17 18:30 INR 0.90 (0.83-1.16) 10/26/17 18:30 d/w DR. Calvo ICU rounds - got IV cardene briefly last night when BP unresponsive to IV hydralazine tele reviewd - NSR - Physical Exam Constitutional: no apparent distress, appears nourished, not in pain Ears, Nose, Mouth, Throat: moist mucous membranes, hearing normal, ears appear normal, no oral mucosal ulcers Respiratory: no respiratory distress, no rales or rhonchi, clear to auscultation Gastrointestinal: normoactive bowel sounds, soft, non-tender abdomen, no palpable masses Skin: no rashes or abrasions, no fluctuance, no induration Neurologic: AAOx3, weakness (complete left) Psychiatric: interacting appropriately, not anxious, not encephalopathic, thought process linear ICD10 Worksheet Patient Problems: Problems Problem Status Onset Hemorrhagic cerebrovascular accident (CVA) Acute
[2017-11-01] MEDS: ACETAMINOPHEN 325 MG TAB PO PRN (20:11)
[2017-11-01] MEDS ORDERED: POTASSIUM CL 20 MEQ/15 ML UDCUP PO ONE (20:15)
[2017-11-01] MEDS ORDERED: POTASSIUM Cl (KCl) 50 ML IV ONE (21:00)
[2017-11-02] MEDS: hydrALAZINE 20 MG/ML VIAL IVP PRN ×2 (05:44→10:43)
[2017-11-02] MEDS ORDERED: POTASSIUM Cl (KCl) 50 ML IV SCH (07:30)
[2017-11-02] MEDS ORDERED: POTASSIUM Cl (KCl) 50 ML IV ONE (07:45)
[2017-11-02] MEDS ORDERED: POTASSIUM CL 10 MEQ TAB PO ONE (07:45)
[2017-11-02] MEDS ORDERED: POTASSIUM Cl (KCl) 100 ML IV ONE (07:45)
--- NOTE | 2017-11-02 07:46 | NEUSURGPN ---
Assessment/Plan: Assessment: 47 yo F with right sided basal ganglia hemorrhage Plan: neuro: stable and doing well overall hypernatremia: at 146 this, 3% d/c this am and salt tabs to normalize Na, getting Q6 hour Na levels PT/OT/St will likely need inpatient rehab, work towards transfer to rehab until medically stable appreciate Hospitalists help with medical issues. please call with neuro changes discussed with Dr Maciel Subjective: Denies any headache, nausea, dizziness Objective: NAD A&Ox3 PERRLA left facial droop less pronounced this am LUE and LLE 2/5, RUE and RLE / Catheter Insertion Date: 10/26/17 - Physician Discussed Patient with : Janell Neurosurgery Physical Exam - Vitals, I&O, Labs I and O 11/01/17 11/02/17 11/03/17 05:59 05:59 05:59 Intake Total 1902 1953 Output Total 2900 1400 Balance -998 553 Intake: Oral (ml) 1090 1500 IV Intake (ml) 100 IV Infused (ml) 812 353 SODIUM Cl 3% 500 ml @ 10 644 353 mls/hr IV CONT FREDDIE Rx#: [id number] niCARdipine/NACL 200 ml @ 168 Titrate IV CONT FREDDIE Rx#: [id number] Output: Urine (ml) 2900 1400 Catheter 2900 1400 Other: Number of Stools Bedside Commode 1 Vital Signs Temp Pulse Resp BP Pulse Ox 37.3 C 62 14 135/86 H 96 10/31/17 22:00 11/02/17 06:00 11/02/17 06:00 11/02/17 06:00 11/02/17 06:00 Laboratory Results 10/28/17 09:00 11/02/17 05:55 ICD10 Worksheet Patient Problems: Problems Problem Status Onset Hemorrhagic cerebrovascular accident (CVA) Acute
[2017-11-02] MEDS: LISINOPRIL 20 MG TAB PO SCH ×2 (08:20→20:44)
[2017-11-02] MEDS: METOPROLOL TARTRATE 50 MG TAB PO SCH ×2 (08:21→20:44)
[2017-11-02] MEDS: buPROPion XL 150 MG TAB PO SCH (08:21)
[2017-11-02] MEDS ORDERED: hydrALAZINE 25 MG TAB PO PRN (12:21)
--- NOTE | 2017-11-02 14:56 | HOSPPROG ---
Hospitalist Progress Note Assessment/Plan: 47 yo F presenting with hemorrhagic CVA * Hemorrhagic CVA with left hemiparesis -continue pt/ot, plan for IP rehab after dc * Dysphagia -cleared for PO with thickened/pureed * HTN crisis -per neurosurgery BP goal max SBP 140 -IV hydralazine prn changed to PO in anticipation of discharge in am -continue PO lisinopril, metoprolol, norvasc * Hyponatremia - 3% saline per neurosurgery now off and Na remains normal * Anxiety/PTSD--stable IP status Patient new to my care. Old records reviewed/summarized as above. Care plan reviewed with Dr. Cruz and multidisciplinary team on rounds, further hx obtained from present at bedside. Subjective: no acute overnight events, strenght improving Objective: Vital Signs Temp Pulse Resp BP Pulse Ox 37.3 C 70 16 112/61 97 10/31/17 22:00 11/02/17 14:00 11/02/17 14:00 11/02/17 14:00 11/02/17 14:00 Laboratory Results 10/28/17 09:00 11/02/17 11:40 11/01/17 11/02/17 11/03/17 05:59 05:59 05:59 Intake Total 1902 1953 Output Total 2900 1400 Balance -998 553 PT 12.4 SEC (12.0-15.0) 10/26/17 18:30 INR 0.90 (0.83-1.16) 10/26/17 18:30 awake alert nad anicteric op clear rrr no mrg cta b soft nt nd ICD10 Worksheet Patient Problems: Problems Problem Status Onset Hemorrhagic cerebrovascular accident (CVA) Acute
--- NOTE | 2017-11-02 15:45 | PDINTPN ---
Curriculum Manager Progress Note Assessment/Plan: Assessment/plan: 47 F with poorly controlled HTN admitted 10/26/17 with dense left hemiparesis and found to have L basal ganglia hemorrhagic CVA. FU CT showed slight increase but clinically stable. Target SBP< 140 using nicardipine drip. Neurposurgery also trying to keep Na level high. * CVA 2/2 HTN. Currently stable. PT/OT. Anticipate inpatient rehab today or tomorrow * HTN- better control with addition of norvasc. No IV meds needed and can dc central line * Na- now 140 and 3% dc'd 11/02/17 15:43 Subjective: better bp control and she reports some muscle tone returning Objective: Vital Signs Temp Pulse Resp BP Pulse Ox 37.3 C 70 16 112/61 97 10/31/17 22:00 11/02/17 14:00 11/02/17 14:00 11/02/17 14:00 11/02/17 14:00 Laboratory Results 10/28/17 09:00 11/02/17 11:40 11/01/17 11/02/17 11/03/17 05:59 05:59 05:59 Intake Total 1902 1953 Output Total 2900 1400 Balance -998 553 PT 12.4 SEC (12.0-15.0) 10/26/17 18:30 INR 0.90 (0.83-1.16) 10/26/17 18:30 Physical Exam - Physical Exam General Appearance: alert, no apparent distress EENT: PERRL/EOMI Neck: supple Respiratory: lungs clear, normal breath sounds, No respiratory distress, No accessory muscle use Cardiac/Chest: regular rate, rhythm, No edema Abdomen: non-tender, soft, No distended Skin: normal color, warm/dry, No cyanosis Lymphatic: no adenopathy Extremities: No pedal edema Neuro/Psych: alert, normal mood/affect, oriented x 3 ICD10 Worksheet Patient Problems: Problems Problem Status Onset Hemorrhagic cerebrovascular accident (CVA) Acute
--- NOTE | 2017-11-02 16:21 | ASMTCMCOM ---
CM Note CM Note Notes: Patient will be ready for inpatient rehab tomorrow. Transport set for 9:30 AM. [facility] with admissions has been informed and they are ready to take her in the morning. Will need the transfer of care summary early as patient cannot leave the hospital until it is entered in the computer. Patient and her have been informed and agree with the plan. CM will follow. Date Signed: 11/02/2017 04:21 PM Electronically Signed By:Oma Slater LCSW
[2017-11-02] MEDS: POTASSIUM Cl (KCl) 10 MEQ in NS 50 ML IV SCH ×3 (20:45→23:22)
[2017-11-03] MEDS ORDERED: POTASSIUM Cl (KCl) 50 ML IV ONE (04:46)
[2017-11-03] MEDS: LISINOPRIL 20 MG TAB PO SCH (07:48)
[2017-11-03] MEDS: buPROPion XL 150 MG TAB PO SCH (07:48)
--- NOTE | 2017-11-03 08:25 | PDDCSUM ---
Discharge Summary Discharge Summary: Dates of service 10/26-11/03/17 Consultations: neurosurgery, pulmonary/critical care Procedures performed: head CT x 2, head CTA, PICC line placement, videofluoro swallow evaluation Hospital course by problem: 47 yo F with HTN presenting with hemorrhagic CVA * Hemorrhagic CVA with left hemiparesis and left neglect--sxs improving since admission -continue pt/ot, plan for IP rehab today -goal BP < 140, has been at goal with current medication: amlodipine, lisinopril, metoprolol--had to decrease metoprolol dose due to bradycardia - will need to continue titrating BP meds to remain at goal, hydralazine PRN available. * Bradycardia -in setting of metoprolol 50 bid, decreased to 12.5 bid and plan to hold for HR < 60 -if bradycardia continues on lower dose of bb, would dc altogether * Dysphagia -cleared for PO with thickened/pureed - will continue to work with KILN OPERATOR at rehab * HTN crisis -as above, goal of sbp < 140 * Hyponatremia - 3% saline per neurosurgery now off and Na remains normal * Anxiety/PTSD--stable DC to IP rehab Meds: see EHR > 35 min spent in dc, more than half in coordination of care
--- NOTE | 2017-11-03 08:25 | PDIAF ---
- Diagnosis Code Status: Full Code - Medication Management Discharge Medications: Medications to Continue on Transfer buPROPion XL [Wellbutrin 150mg XL] 150 mg PO DAILY 10/26/17 [Last Taken Unknown] clonazePAM [Klonopin (*)] 0.25 - 0.5 mg PO BID PRN 10/26/17 [Last Taken Unknown] Acetaminophen [Tylenol 325mg (*)] 650 mg PO Q4HRS PRN tab 11/03/17 [Last Taken Unknown] LORazepam [Ativan (*)] 0.5 - 1 mg PO Q8HRS PRN tab 11/03/17 [Last Taken Unknown ] Lisinopril [Zestril 20 mg (*)] 20 mg PO BID tab 11/03/17 [Last Taken Unknown] Metoprolol Tartrate [Lopressor 50 mg (*)] 50 mg PO BID tab 11/03/17 [Last Taken Unknown] Ondansetron Odt [Zofran Odt 4 mg (*)] 4 mg PO Q4HRS PRN tab 11/03/17 [Last Taken Unknown] Polyethylene Glycol 3350 [Miralax 17 gm (*)] 17 gm PO DAILY PRN pkt 11/03/17 [ Last Taken Unknown] amLODIPine BESYLATE [Norvasc 10 mg (*)] 10 mg PO DAILY tab 11/03/17 [Last Taken Unknown] hydrALAZINE [Apresoline] 25 mg PO QID PRN tab 11/03/17 [Last Taken Unknown] Discharge Medications: Refer to the Discharge Home Medication list for PRN reason. - Orders Services needed: Registered Nurse, Certified It Applications Manager, Physical Therapy, Occupational Therapy, Speech Language Pathologist Diet Texture: Dysphagia 2 - Mechanically Altered - Chopped, Ground, Thin Liquids , Ice Chips, Meds Whole in Puree Additional Instructions: BP goal SBP < 140. Please do q4 hour vitals x 24 hours, then per routine thereafter. - Follow Up Care Current Providers and Referrals: NONE *PRIMARY CARE P,. [Primary Care Provider] - As per Instructions Mahin Maciel MD [Medical Doctor] - follow up in 2 weeks
[2017-11-03] MEDS ORDERED: METOPROLOL TARTRATE 50 MG TAB PO SCH (08:30)
[2017-11-03 09:05] VITALS: BP 128/82
--- NOTE | 2017-11-03 09:41 | ASDISCHSUM ---
Discharge Information Plan Status: Medically Cleared to Leave:11/03/2017 Discharge Date:11/03/2017 CM D/C Disposition:[facility] IP ADT D/C Disposition:[facility] IP Projected Discharge Date:11/03/2017 12:00 AM Transportation at D/C:Wheelchair Van Discharge Delay Reason: Follow-Up Date:11/03/2017 12:00 AM Discharge Slot:1 - 8:01 am - 12:00 noon Final Diagnosis: Placement Information Patient Contact Information Contact Name:ELDER Relationship: Address:[address] Work Phone: City:[place] Alternate Phone: [facility]/Zip Code:[place] [address] Email: Financial Information Financial Class:HMO and PPO Plans Primary Plan Desc: OUT OF STATE PPO Primary Plan Number:[id number] Secondary Plan Desc: Secondary Plan Number: Assessment Information [facility] Initial CM Assessment Living Arrangements What is your living Answers: With Spouse arrangement? Who do you live with? Type Of Residence What kind of residence do Answers: Apartment you live in? Discharge Plan Comments Coordination Status Comments Notes: Patient is a 47yo female who was admitted for hemorrhagic cerebrovascular accident, LUE and LLE weakness, expressive aphasia, HTN, untreated, and hyponatremia.PT/OT/PERFORATOR OPERATOR have been ordered. D/C needs TBD. CM will follow. Date Signed: 10/27/2017 09:29 AM Electronically Signed By:Oma Slater LCSW [facility] CM Progress Note CM Note CM Note Notes: Spoke with patient and Frank about discharge planning. I explained how discharge to SNF or IPR would look and also answered specific questions about IPR. At this time, patient qualifies for IPR; however, they will have to submit for authorization from [facility]. I also helped patient and family understand what post-rehab discharge will look like (home care, private duty care, etc. . .) and encouraged them not to worry since progress will be measured daily and goals may change. They seem comfortable with the tentative discharge plan. Case Management will follow. Date Signed: 10/30/2017 01:21 PM Electronically Signed By:Rina Tiwari RN [facility] CM Progress Note CM Note CM Note Notes: Patient improving. Anticipate inpatient rehab later this week when the BP and sodium issues resolve. CM will follow. Date Signed: 11/01/2017 02:20 PM Electronically Signed By:Oma Slater LCSW [facility] CM Progress Note CM Note CM Note Notes: Patient will be ready for inpatient rehab tomorrow. Transport set for 9:30 AM. [facility] with admissions has been informed and they are ready to take her in the morning. Will need the transfer of care summary early as patient cannot leave the hospital until it is entered in the computer. Patient and her have been informed and agree with the plan. CM will follow. Date Signed: 11/02/2017 04:21 PM Electronically Signed By:Oma Slater LCSW Case Management Discharge Plan Note Case Management Discharge Discharge Order Complete? Answers: Yes Patient to Obtain Answers: Other Notes: [facility] Inpatient rehab Medications Transportation Arranged Answers: [facility] W/C Transport will Pick (Date 11/03/2017 12:00 AM & Time) Case Management Transport Answers: Yes Notes: [facility] - [facility] Form Complete Faxed Final Orders Answers: Yes Notes: [facility] INpatient rehab Agency/Facility Transfer Answers: Yes Notes: [facility] Inpatient rehab Report Printed & Faxed to Receiving Agency Family Notified Answers: Yes Notes: Frank, Discharge Comments Notes: Patient to d/c to [facility] inpatient rehab today. Transport changed to 10:30 AM to accomodate inpatient request. Discharge summaries forwarded to unit. Report, nurse to nurse [phone] completed by patient's nurse Lauryn. No further needs. Date Signed: 11/03/2017 09:39 AM Electronically Signed By:Oma Slater LCSW Intervention Information
== END 2017-11-03 10:36 | DRG 65 ==
LOC: F2N 19:36
PROVIDERS: ADMIT Family Medicine; ATTEND Family Medicine
PROC: 02HV33Z Insertion of Infusion Device into Superior Vena Cava, Percutaneous Approach (ICD-10-PCS; principal; 2017-10-28)
DX: I61.9 Nontraumatic intracerebral hemorrhage, unspecified (principal); G81.94 Hemiplegia, unspecified affecting left nondominant side; I16.1 Hypertensive emergency; R47.01 Aphasia; E87.1 Hypo-osmolality and hyponatremia; R00.1 Bradycardia, unspecified; R13.10 Dysphagia, unspecified; F41.9 Anxiety disorder, unspecified; F43.10 Post-traumatic stress disorder, unspecified
CPT/HCPCS: 92507-GN; 92523-GN; 92526-GN; 92610-GN; 92611-GN; 96365; 97110-GP; 97112-GO; 97112-GP; 97162-GP; 97167-GO; 97530-GO; 97530-GP; 97535-GO; C1751; J0360; J2001; J2997; J3010; J3480; Q9967

== ENCOUNTER 2017-10-31 12:57 | Inpatient (IN) | payer BC ==
[2017-11-03] MEDS ORDERED: LORazepam 0.5 MG TAB PO PRN (12:48)
[2017-11-03] MEDS ORDERED: hydrALAZINE 25 MG TAB PO PRN (12:48)
[2017-11-03] MEDS ORDERED: POLYETHYLENE GLYCOL 3350 17 GM PKT PO PRN (12:48)
[2017-11-03] MEDS ORDERED: ACETAMINOPHEN 325 MG TAB PO PRN (12:48)
[2017-11-03] MEDS ORDERED: ONDANSETRON DISINTEGRATING 4 MG TAB PO PRN (12:48)
[2017-11-03] MEDS ORDERED: clonazePAM 0.5 MG TAB PO PRN (12:48)
[2017-11-03] MEDS ORDERED: SENNOSIDES 1 TAB PO PRN (14:01)
--- NOTE | 2017-11-03 14:54 | BCON ---
[f rep st] POST ADMISSION PHYSICIAN EVALUATION AND REHABILITATION TREATMENT PLAN. DATE OF CONSULTATION: 11/03/2017 REFERRING PHYSICIAN: Dr. Foster DATE OF EVALUATION: 11/03/2017. TIME OF EVALUATION: 1315. REFERRING FACILITY: [facility]. CONSULTING PHYSICIANS: She was seen by the hospitalist service, Dr. Santiago, and by the Neurosurgery Service, Dr. Maciel. REHABILITATION DIAGNOSIS: Debility with left hemiparesis, status post right basal ganglia hemorrhagic cerebrovascular accident. IMPAIRMENT GROUP: 1.1. ETIOLOGIC DIAGNOSIS: Left body involvement (right brain) DATE OF ONSET: 10/26/2017. HISTORY OF PRESENT ILLNESS: This patient presented to [facility] on 10/26/2017, with left-sided weakness and slurred speech. Head CT showed a large intraparenchymal hemorrhage in the right basal ganglia with a trace of subarachnoid hemorrhage along the right sylvian fissure. She also had an old lacunar infarct in the left caudate head. She had a head CT, which ruled out any aneurysms or AV malformations. She needed intravenous nicardipine for initial blood pressure management due to severe hypertension. She had fluctuations in sodium, including hyponatremia, for which there was a fluid restriction. It was not consistent with SIADH. She was also treated with 3% sodium chloride IV to reduce brain edema, and she had hypernatremia as well. Video fluoroscopic swallow study showed aspiration if she swallowed thin liquids rapidly. She had a PICC line placed for fluid management and labs, which was subsequently removed. She was eventually transitioned to entirely oral antihypertensives with a goal blood pressure of less than 140 systolic. There was bradycardia on metoprolol, and the dose had to be reduced from 50 mg b.i.d. to 12.5 mg b.i.d. Studies and labs during her hospitalization: She initially had a low sodium of 129. Serum osmolality was 276, as was urine osmolality. Renal function and electrolytes were otherwise within normal limits. There was a lipid panel drawn , which showed a very benign picture with a total cholesterol of 183 and an HDL of greater than 110. TSH was normal at 0.839. Sodium rebounded, and eventually she was hypernatremic with a sodium of 150 on 11/01/2017. Finally, by the day of discharge from the hospital, her basic metabolic profile is completely normal with a sodium of 139 and a potassium of 3.8. She very transiently had a low potassium during her hospitalization. Coagulation studies revealed a normal protime. Hematology: CBC was overall within normal limits, last checked on 10/28/2017. Last head CT done on 10/29/2017, showed stable intraparenchymal hemorrhage in the right basal ganglia extending to the centrum semiovale and right temporal lobe. There was surrounding vasogenic edema and mass effect. There was an old lacunar infarct adjacent to the left caudate. The hemorrhage was 4.5 x 3.6 cm. She had a chest x-ray done following a PICC line insertion. The PICC line was in good position, and there were no abnormalities seen otherwise on the chest x-ray. PRECAUTIONS: She is a fall risk. She has aspiration precautions. ACTIVE COMORBIDITIES: She has the tier 3 comorbidity of hemiparesis. She otherwise has no active tier 1, tier 2 or tier 3 comorbidities. PAST MEDICAL HISTORY: 1. Hypertension, which has not been treated previously. 2. PTSD/anxiety. 3. Uterine fibroids. PAST SURGICAL HISTORY: She has had a procedure to remove uterine fibroids. MEDICATIONS: Pre-hospital medications: 1. Ibuprofen 400-600 mg p.o. daily p.r.n. 2. Loratadine/pseudoephedrine 12-hour tablet 1 p.o. b.i.d. p.r.n. 3. Bupropion XL 150 mg p.o. daily. 4. Clonazepam 0.25-0.5 mg b.i.d. p.r.n. Admission medications: 1. Acetaminophen 650 mg p.o. q.4 hours p.r.n. 2. Amlodipine 10 mg p.o. daily. 3. Bupropion XL 150 mg p.o. daily. 4. Clonazepam 0.25-0.5 mg p.o. b.i.d. p.r.n. 5. Hydralazine 25 mg p.o. q.i.d. p.r.n. 6. Lisinopril 20 mg p.o. b.i.d. 7. Metoprolol 12.5 mg p.o. b.i.d. 8. Ondansetron 4 mg p.o. q.4 hours p.r.n. 9. Polyethylene glycol 17 g p.o. daily p.r.n. ALLERGIES: There are no known drug allergies. SOCIAL HISTORY: She is . She lives with her . 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 She and her have no children. They live in an apartment with an elevator to enter and then no steps inside the home. FAMILY HISTORY: Noncontributory. REVIEW OF SYSTEMS: She denies vision changes. She notes that there were vision changes, and these have improved, and there was a possible left-sided hemineglect. She denies headache. She has profound weakness of the left upper and lower extremities, but reports that she has been able to activate her left gluteus while standing in the Marline-Emissarydy device. She reports sensation is intact. She denies cough or dyspnea. She denies fevers or chills. She is not in pain. She denies nausea, vomiting, constipation, or diarrhea, and she has a good appetite. She denies dysuria or urinary frequency. Otherwise, a 10-point review of systems is negative. PHYSICAL EXAM: VITAL SIGNS: Blood pressure is 149/90. Heart rate is 56. Respiratory rate is 18. Oxygen saturation is 97% on room air. Temperature is 37 degrees centigrade. Her weight is 72.5 kg, for a body mass index of 24.5. GENERAL: This is a well-nourished, well-developed woman, appears her chronologic age, dressed in street clothes, sitting up in bed, cooperative, and in no acute distress. She leans to the left and has a right gaze preference. HEENT: Extraocular movements are intact. Pupils are equal, round, and reactive to light. Mucous membranes are moist. Dentition is in good condition. She has a moderately crowded airway, Mallampati class 3. NECK: Supple. HEART: There is a regular rate and rhythm, with no murmurs, rubs, or gallops. LUNGS: Clear to auscultation bilaterally. ABDOMEN: Soft, nontender , nondistended, with normoactive bowel sounds and no hepatosplenomegaly. EXTREMITIES: There is no cyanosis, clubbing, or edema. NEUROLOGIC: She is alert and oriented x3. Cranial nerves 2-12 are grossly intact, except for some facial droop. She can maintain a labial seal. Tongue moves symmetrically. Palate elevates symmetrically. She has, however, no shoulder shrug on the left , though this is more likely due to the basal ganglia lesion than due to cranial nerve palsy. She has normal strength on the right upper and lower extremities. The left upper and lower extremities have flaccid paralysis. She has a minimal extension contracture at the left ankle. Deep tendon reflexes are 2+ bilaterally at the biceps, patellae and Achilles tendons. Plantar reflexes upgoing on the left. CURRENT LEVEL OF FUNCTION: Per the pre-admission screen: For diet, feeding and swallowing, she was on a dysphagia 2 diet. She required supervision with meals and alternating solids with liquids. She was upright for meals with no straws and oral care after eating. Bathing required total care. Toileting required total assistance. She had a bladder catheter when she was evaluated, but she does not have one now. Bed mobility required moderate assist of 2. Transfers required minimal to moderate assist of 2 for [id number] with voice cues and maximal assist of 2 for stand-pivot transfers. She used a Marline-Stedy and a Esteban lift. Standing balance required moderate assistance. Seated balance required moderate to maximal assistance. Endurance was fair. Regarding communication, she had mild to moderate impairment, and regarding cognition, she had mild to moderate impairment in attention and executive function, problem solving, and reasoning. She was noted to have left neglect. On today's exam, there are no significant differences from the preadmission screen. 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 She is appropriate for inpatient rehabilitation where she will benefit from PT, OT, and CELLAR PACKER to optimize mobility, function, and activities of daily living. Her goal is to complete a rehabilitation stay and return home with her family and supportive services. For a safe discharge, she will need to be able to tolerate a regular diet. She will have minimal cognitive impairment. She will achieve modified independence for eating and grooming with setup. She likely will require minimal assist for bed mobility and transfers to a wheelchair. She should be able to propel the wheelchair for household distances. She should be able to initiate dressing and bathing but require assistance for safety and to complete tasks. She will require assistance for household management, shopping and food preparation. She will have therapy with physical therapy, occupational therapy, and speech and language pathology for 1 hour per day on 5-7 days per week. Her expected duration of stay is 28-30 days. It is anticipated that upon discharge she will continue to benefit from home health services, including nursing, speech and language pathology, a nurse's aide, social work, occupational therapy, and physical therapy. Additionally, she will benefit from a stroke support group. PLAN: 1. Left upper and lower extremity flaccid paralysis, status post right basal ganglia hemorrhagic CVA. PT and OT to optimize mobility, activities of daily living to the modified independent level for eating and grooming and minimal assist level for bed mobility and transfers. 2. Cognitive impairment and communication deficit to be assessed and treated per Speech and Language Pathology. 3. Hypertension precedes the CVA. Blood pressure may be higher due to the hemorrhagic CVA. She is currently on maximal doses of amlodipine and lisinopril , and these are augmented by metoprolol dosing, which was limited by bradycardia , and p.r.n. hydralazine. She has had both hypo and hypernatremia, and so though a diuretic would be indicated as a first-line antihypertensive to add to her current regimen, will not do this at present. Will, however, monitor her basic metabolic profile for several days, as well as her blood pressures. It is possible that over several days, blood pressures will continue to improve, and there will not be a need for additional agents, and hydralazine can be tapered and discontinued. 4. Anxiety and history of PTSD. Continue bupropion and p.r.n. clonazepam. 5. Prophylaxis. The question of DVT prophylaxis was discussed with Neurosurgery, and at this point, they approve pharmacologic DVT prophylaxis. We will continue SCDs at night. We will order subcutaneous heparin 5000 units subcutaneous q.8 hours. FOLLOWUP: She should have followup with neurosurgeon, Dr. Maciel, in approximately 2 weeks, or approximately November 17, if she is still in the inpatient rehabilitation hospital at that time. Postponing followup until after discharge will be discussed with Neurosurgery. /[id number]/MODL MTDD
[2017-11-03] MEDS: HEPARIN 5,000 UNIT/0.5 ML INJ SC SCH ×2 (14:59→21:41)
[2017-11-03] MEDS: BETHANECHOL 10 MG TAB PO SCH ×2 (15:55→21:05)
[2017-11-03] MEDS: METOPROLOL TARTRATE 25 MG TAB PO SCH (20:30)
[2017-11-03] MEDS: LISINOPRIL 20 MG TAB PO SCH (20:30)
[2017-11-04] MEDS: BETHANECHOL 10 MG TAB PO SCH ×4 (05:57→21:49)
[2017-11-04] MEDS: HEPARIN 5,000 UNIT/0.5 ML INJ SC SCH ×3 (05:57→21:55)
[2017-11-04] MEDS: METOPROLOL TARTRATE 25 MG TAB PO SCH ×2 (08:56→21:49)
[2017-11-04] MEDS: buPROPion XL 150 MG TAB PO SCH (08:56)
[2017-11-04] MEDS: LISINOPRIL 20 MG TAB PO SCH ×2 (08:57→21:48)
--- NOTE | 2017-11-04 10:44 | SOAPPROG ---
SOAP Progress Note Assessment/Plan: Assessment: * DEBILITY-LEFT HEMIPARESIS STATUS POST RIGHT BASAL GANGLIA HEMORRHAGE. DENSE LEFT HEMIPLEGIA SECONDARY TO THIS. THERAPY STAFF TO MONITOR FOR DEVELOPMENT OF LEFT SHOULDER SUBLUXATION, LEFT HAND EDEMA AND LEFT UPPER EXTREMITY NEUROPATHIC PAIN, EARLY SIGNS/SYMPTOMS OF SYMPATHETICLY MEDIATED PAIN SYNDROME.8 * LEFT HEMIPARESIS-PHYSICAL AND OCCUPATIONAL THERAPY FOR LOWER AND UPPER EXTREMITY STRENGTHENING, RESPECTIVELY, GAIT TRAINING. PT AND OT TO WORK IN CONCERT FOR CORE STRENGTHENING IT PERTAINS TO LOWER AND UPPER EXTREMITY FUNCTION, RESPECTIVELY. * COGNITIVE DYSFUNCTION-SPEECH AND LANGUAGE THERAPY TO FULLY ASSESS FOR COGNITIVE DEFICITS. IMPLEMENT COGNITIVE RETRAINING. * HYPERTENSION-BLOOD PRESSURE THIS MORNING WAS 127/81. WILL CONTINUE CURRENT BLOOD PRESSURE MEDICATIONS INCLUDING AMLODIPINE AND LISINOPRIL, WELL METOPROLOL. * anxiety-continue wrote you appropriate on bupropion and p.r.n. Clonazepam. *DVT prophylaxis-with left hemiparesis she is HIGH risk for developing DVT. Per Dr. Hunt's admission H&P, he discussed DVT prophylaxis with Neurosurgery and subsequent to this was started on subcutaneous heparin 5000 units every 8 hr. Plan: 11/04/17 10:44 Subjective: NO SPECIFIC COMPLAINTS PER PATIENT. HER WAS AT BEDSIDE AND HAD SEVERAL QUESTIONS REGARDING BLOOD PRESSURE MANAGEMENT AND HER ELECTROLYTE STATUS. PATIENT REPORTS THAT SHE IS UNABLE TO MOVE LEFT UPPER AND LEFT LOWER EXTREMITY. DENIES HEADACHE, DENIES DIZZINESS OR DIPLOPIA. NO DECLINE IN MENTAL STATUS PER PATIENT'S FAMILY. Objective: Vital Signs Temp Pulse Resp BP Pulse Ox 37.1 C 61 18 127/81 H 93 11/04/17 06:41 11/04/17 08:56 11/04/17 06:41 11/04/17 08:57 11/04/17 06:41 Laboratory Results 11/04/17 06:00 11/03/17 11/04/17 11/05/17 05:59 05:59 05:59 Intake Total 560 Output Total 2100 Balance -1540 Physical Exam - Physical Exam General Appearance: WD/WN, alert, no apparent distress EENT: other (MILD LEFT FACIAL DROOP) Neck: non-tender Respiratory: lungs clear, normal breath sounds Cardiac/Chest: No edema Abdomen: non-tender, soft Pelvic Exam: other (NO SUPRAPUBIC TENDERNESS) Skin: warm/dry, other (NEGATIVE FOR ALLODYNIA LEFT UPPER AND LEFT LOWER EXTREMITY.) Neuro/Psych: motor weakness ( DENSE LEFT HEMIPLEGIA) ICD10 Worksheet Patient Problems: Problems Problem Status Onset Hemorrhagic cerebrovascular accident (CVA) Acute
[2017-11-05] MEDS: BETHANECHOL 10 MG TAB PO SCH (06:11)
[2017-11-05] MEDS: HEPARIN 5,000 UNIT/0.5 ML INJ SC SCH ×3 (06:11→20:59)
[2017-11-05] MEDS: buPROPion XL 150 MG TAB PO SCH (08:45)
[2017-11-05] MEDS: METOPROLOL TARTRATE 25 MG TAB PO SCH ×2 (08:46→20:59)
[2017-11-05] MEDS: LISINOPRIL 20 MG TAB PO SCH ×2 (08:47→20:59)
--- NOTE | 2017-11-05 09:24 | SOAPPROG ---
SOAP Progress Note Assessment/Plan: Assessment: * DEBILITY-LEFT HEMIPARESIS STATUS POST RIGHT BASAL GANGLIA HEMORRHAGE. DENSE LEFT HEMIPLEGIA SECONDARY TO THIS. THERAPY STAFF TO MONITOR FOR DEVELOPMENT OF LEFT SHOULDER SUBLUXATION, LEFT HAND EDEMA AND LEFT UPPER EXTREMITY NEUROPATHIC PAIN, EARLY SIGNS/SYMPTOMS OF SYMPATHETICLY MEDIATED PAIN SYNDROME.8 * LEFT HEMIPARESIS-PHYSICAL AND OCCUPATIONAL THERAPY FOR LOWER AND UPPER EXTREMITY STRENGTHENING, RESPECTIVELY, GAIT TRAINING. PT AND OT TO WORK IN CONCERT FOR CORE STRENGTHENING IT PERTAINS TO LOWER AND UPPER EXTREMITY FUNCTION, RESPECTIVELY. * COGNITIVE DYSFUNCTION-SPEECH AND LANGUAGE THERAPY TO FULLY ASSESS FOR COGNITIVE DEFICITS. IMPLEMENT COGNITIVE RETRAINING. * HYPERTENSION-BLOOD PRESSURE THIS MORNING 132/90. WILL ASK NURSING TO RECHECK BLOOD PRESSURE LATER THIS MORNING. IF DIASTOLIC REMAINS HIGH THEN WILL CONSIDER INCREASING METOPROLOL. WILL CONTINUE CURRENT BLOOD PRESSURE MEDICATIONS INCLUDING AMLODIPINE AND LISINOPRIL, WELL METOPROLOL. * anxiety-continue bupropion and p.r.n. Clonazepam. *DVT prophylaxis-with left hemiparesis she is HIGH risk for developing DVT. Per Dr. Hunt's admission H&P, he discussed DVT prophylaxis with Neurosurgery and subsequent to this was started on subcutaneous heparin 5000 units every 8 hr. * BLADDER MANAGEMENT-WE WILL DISCONTINUE THE URECHOLINE. DISCUSSED WITH HER NURSE FOR BLADDER TRAINING TO INCLUDE NURSING TO OFFER TOILETING Q.4 HOURS, BLADDER SCANNING FOLLOWING VOIDING AND IF POSTVOID RESIDUAL GREATER THAN 300 THEN IN AND OUT CATHETERIZATION. DISCUSSED THIS WITH BOTH PATIENT AND HER WHO AGREES. Subjective: PATIENT IS REQUESTING THE URIC: TO BE DISCONTINUED. HER STATES THAT SHE HAD AN EPISODE OF URINARY INCONTINENCE TODAY DURING A TRANSFER. HE INDICATES THAT THE ARORA WAS REMOVED PRIOR TO THEIR TRANSFER TO THE REHAB UNIT. APPARENTLY SHE DID NOT HAVE BLADDER TRAINING. Objective: Vital Signs Temp Pulse Resp BP Pulse Ox 36.6 C 62 15 132/90 H 95 11/05/17 06:36 11/05/17 06:36 11/05/17 06:36 11/05/17 08:47 11/05/17 06:36 Laboratory Results 11/05/17 06:30 11/04/17 11/05/17 11/06/17 05:59 05:59 05:59 Intake Total 560 100 Output Total 2100 1200 Balance -1540 -1200 100 Physical Exam - Physical Exam General Appearance: WD/WN, alert EENT: other (AVOIDS EYE CONTACT WHICH CORRECTS WITH VERBAL CUING.) Respiratory: lungs clear, normal breath sounds Cardiac/Chest: No edema Abdomen: normal bowel sounds, non-tender, soft Skin: warm/dry Extremities: No swelling, No Priya's sign Neuro/Psych: motor weakness (DENSE LEFT HEMIPLEGIA) ICD10 Worksheet Patient Problems: Problems Problem Status Onset Hemorrhagic cerebrovascular accident (CVA) Acute
[2017-11-06] MEDS: HEPARIN 5,000 UNIT/0.5 ML INJ SC SCH (06:28)
[2017-11-06] MEDS: LISINOPRIL 20 MG TAB PO SCH ×2 (08:40→21:01)
[2017-11-06] MEDS: buPROPion XL 150 MG TAB PO SCH (08:40)
[2017-11-06] MEDS: METOPROLOL TARTRATE 25 MG TAB PO SCH ×2 (08:40→21:01)
--- NOTE | 2017-11-06 12:43 | PDOREHIP ---
Admission [facility] - Admission - 3 Day Assessment Period Admission Date/Day 1: 11/03/17 Day 2: 11/04/17 Day 3: 11/05/17 - Active Diagnoses Comorbidities and Co-existing Conditions at Admission: 00549. None of the Above - Skin Conditions Unhealed Pressure Ulcer (1 or more/Stage 1 or >)-Admission: 0. No
--- NOTE | 2017-11-06 12:43 | SOAPPROG ---
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 * PT and OT to optimize mobility, activities of daily living to the modified independent level for eating and grooming and minimal assist level for bed mobility and transfers. Cognitive impairment and communication deficit to be assessed and treated per Speech and Language Pathology. Hypertension precedes the CVA. * Adequate control on amlodipine, lisinopril, and metoprolol. * Not using p.r.n. Hydralazine so will change blood pressure monitoring from q.4 hours to Q shift starting 11/06/2017. Anxiety and history of PTSD. Continue bupropion and p.r.n. clonazepam. * She does not feel that she needs a psychiatry consult regarding her dreams especially now that her sleep is improved. Prophylaxis. The question of DVT prophylaxis was discussed with Neurosurgery, and at this point, they approve pharmacologic DVT prophylaxis. We will continue SCDs at night. Initiated subcutaneous heparin 5000 units subcutaneous q.8 hours. She dislikes the injections. Will change to enoxaparin 40 mg subcutaneous q.day starting 5 03/01/2018. Consider changing to direct oral anticoagulant but would need to discuss with Neurosurgery and with her pharmacy to determine which medication would be covered. Pharmacy is closed today, memory all day, so will defer until tomorrow. FOLLOWUP: She should have followup with neurosurgeon, Dr. Maciel, in approximately 2 weeks, or approximately November 17, if she is still in the inpatient rehabilitation hospital at that time. Postponing followup until after discharge will be discussed with Neurosurgery. 11/06/17 13:06 Subjective: Reports "OCD" dreams in which some thing bad is going is going to happen and she needs to repeat some behavior over over. She has not had dreams like this in the past. She slept better last night and is less of a problem than it was. Otherwise doing well. Denies cough or dyspnea denies fevers or chills. Has improved use of the left leg and has been standing with therapies and beginning pre gait activities. Objective: Vital Signs Temp Pulse Resp BP Pulse Ox 36.7 C 62 16 129/80 H 93 11/06/17 06:40 11/06/17 08:40 11/06/17 06:40 11/06/17 08:40 11/06/17 06:40 Laboratory Results 11/06/17 06:40 11/05/17 11/06/17 11/07/17 05:59 05:59 05:59 Intake Total 1270 480 Output Total 1200 1000 550 Balance -1200 270 -70 Physical Exam - Physical Exam General Appearance: WD/WN, alert, no apparent distress Respiratory: normal breath sounds, No crackles, No rhonchi, No wheezing Cardiac/Chest: regular rate, rhythm, No edema, No diastolic murmur, No systolic murmur Skin: normal color, warm/dry Neuro/Psych: alert, normal mood/affect, motor weakness (LUE flaccid paralysis), speech abnormalities (Hypophonia) ICD10 Worksheet Patient Problems: Problems Problem Status Onset Hemorrhagic cerebrovascular accident (CVA) Acute
[2017-11-06] MEDS ORDERED: HEPARIN 5,000 UNIT/0.5 ML INJ SC SCH (21:00)
[2017-11-07] MEDS: METOPROLOL TARTRATE 25 MG TAB PO SCH ×2 (07:58→20:09)
[2017-11-07] MEDS: LISINOPRIL 20 MG TAB PO SCH ×2 (07:59→20:04)
[2017-11-07] MEDS: ENOXAPARIN 40 MG/0.4 ML SYR SC SCH (07:59)
[2017-11-07] MEDS: buPROPion XL 150 MG TAB PO SCH (07:59)
--- NOTE | 2017-11-07 10:13 | SOAPPROG ---
SOAP Progress Note Assessment/Plan: 47-year-old woman status post right basal ganglia hemorrhagic stroke with left- sided hemiparesis. Today's update: Patient has both urinary urgency and incomplete voiding, some incontinence. She has also had constipation for several days. Goal to improve constipation, improved complete voiding, and do scheduled voids. Discussed with nursing and staff. No plan to continue bethanechol at this point. Patient is also okay with the current number and types of subcutaneous injections for DVT prophylaxis. A total of 35 min was spent on the floor in the care of the patient, the majority of which was spent counseling and coordination of care regarding DVT prophylaxis options as well as strategies for minimizing urinary incontinence. All medical issues are new to this provider. Issues reviewed without change today include hypertension, anxiety and history of PTSD. Plan to follow up with Neurosurgery after discharge. 11/07/17 10:10 Subjective: Chief complaint: Urinary incontinence No acute events overnight. Patient denies any new shortness of breath or chest pain, no new numbness, tingling, or weakness. Patient endorses ongoing urinary incontinence that is related to stress, pressure. She notes that she knows when she has to go to the bathroom but has difficulty getting their in time and when she sits up in bed it puts pressure on the bladder and can cause her to have a incontinent episode. She also states that when she is trying to urinate she can't fully empty at times. Also is noted by nursing that she has had constipation for several days. Current bowel regimen is listed as p.r.n.. Discussed plan with nurse to schedule bowel medications and have bowel program after therapies. Objective: Vital Signs Temp Pulse Resp BP Pulse Ox 36.8 C 62 17 120/74 93 11/07/17 06:42 11/07/17 06:42 11/07/17 06:42 11/07/17 06:42 11/07/17 06:42 Laboratory Results 11/06/17 06:40 11/06/17 11/07/17 11/08/17 05:59 05:59 05:59 Intake Total 1270 880 0 Output Total 1000 1675 Balance 270 -795 0 Physical Exam - Physical Exam General Appearance: WD/WN, alert, no apparent distress EENT: No scleral icterus (R), No scleral icterus (L) Respiratory: lungs clear, normal breath sounds, No respiratory distress, No accessory muscle use, No rales, No rhonchi, No wheezing Cardiac/Chest: normal peripheral pulses, regular rate, rhythm, No edema, No diastolic murmur, No systolic murmur Abdomen: normal bowel sounds, non-tender, soft Skin: normal color, warm/dry, No cyanosis, No diaphoresis Extremities: No pedal edema, No swelling Neuro/Psych: alert, normal mood/affect, oriented x 3, motor weakness (Left hemiparesis) ICD10 Worksheet Patient Problems: Problems Problem Status Onset Hemorrhagic cerebrovascular accident (CVA) Acute
[2017-11-07] MEDS: SENNOSIDES 1 TAB PO SCH ×2 (10:53→21:59)
[2017-11-07] MEDS: POLYETHYLENE GLYCOL 3350 17 GM PKT PO SCH (10:53)
[2017-11-07] MEDS: BISACODYL 10 MG SUPP PR PRN (19:51)
[2017-11-08] MEDS: buPROPion XL 150 MG TAB PO SCH (08:49)
[2017-11-08] MEDS: METOPROLOL TARTRATE 25 MG TAB PO SCH ×2 (08:50→20:57)
[2017-11-08] MEDS: ENOXAPARIN 40 MG/0.4 ML SYR SC SCH (08:50)
[2017-11-08] MEDS: LISINOPRIL 20 MG TAB PO SCH ×2 (08:50→20:57)
[2017-11-08] MEDS: SENNOSIDES 1 TAB PO SCH ×2 (08:51→20:57)
[2017-11-08] MEDS ORDERED: MAGNESIUM CITRATE 300 ML BOTTLE PO ONE (10:16)
[2017-11-08] MEDS: POLYETHYLENE GLYCOL 3350 17 GM PKT PO SCH (13:31)
--- NOTE | 2017-11-08 13:38 | SOAPPROG ---
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 * Initial functional independence measure 53 on 11/08/2017. Bed mobility requires moderate assistance of 1 and cuing. Seated balance requires contact guard assist. Transfers require moderate to maximal assist of 1 and arising to standing from seated requires minimal assist of 1. She has a 2 person transfer per nursing. She has trace lower extremity movement. Upper body dressing requires minimal to moderate assist and lower body dressing requires maximal assist. Bath transfer requires total assist, bathing requires minimal assist. Toilet transfer requires moderate assist. She has shoulder elevation and scapula retraction. * Continue PT and OT to optimize mobility, activities of daily living to the modified independent level for eating and grooming and minimal assist level for bed mobility and transfers. Cognitive impairment and communication deficit. * Dysexecutive with decreased problem-solving. * Continue Speech and Language Pathology. Dysphagia. * On dysphagia 3 diet texture with thin liquids. Receiving neuromuscular electronic stimulation. 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 Hypertension precedes the CVA. * Adequate control on amlodipine, lisinopril, and metoprolol. * Not using p.r.n. Hydralazine so changed blood pressure monitoring from q.4 hours to Q shift starting 11/06/2017. Anxiety and history of PTSD. Continue bupropion and p.r.n. clonazepam. * She does not feel that she needs a psychiatry consult regarding her dreams especially now that her sleep is improved. Prophylaxis. The question of DVT prophylaxis was discussed with Neurosurgery, and at this point, they approve pharmacologic DVT prophylaxis. We will continue SCDs at night. Initiated subcutaneous heparin 5000 units subcutaneous q.8 hours. She dislikes the injections. Will change to enoxaparin 40 mg subcutaneous q.day starting 03/01/2018. Consider changing to direct oral anticoagulant but would need to discuss with Neurosurgery and with her pharmacy to determine which medication would be covered. Pharmacy is closed today, memory all day, so will defer until tomorrow. FOLLOWUP: She should have followup with neurosurgeon, Dr. Maciel, in approximately 2 weeks, or approximately November 17, if she is still in the inpatient rehabilitation hospital at that time. Postponing followup until after discharge will be discussed with Neurosurgery. DISPOSITION: Attended staffing, 15 min. Discussed with case management, nursing, dietitian, PT, OT, PLANT MAINTENANCE ENGINEER. Lives in apartment with her with an elevator to enter and then single-level. 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 She tends to discharge home with her . She intends to return to work. Discharge date set for 12/01/2017. 11/08/17 13:34 Subjective: No complaints. Says she is working hard with therapies and is tired at night. Sleeping well. Not in pain. No cough or dyspnea. Nurse reports multiple bowel movements yesterday evening and patient declined magnesium citrate this morning. Was unable to void this morning and had 345 cc per bladder scan; subsequently voided greater than 500 cc later in the day. Objective: Vital Signs Temp Pulse Resp BP Pulse Ox 36.9 C 60 16 109/69 93 11/08/17 06:12 11/08/17 08:50 11/08/17 06:12 11/08/17 08:50 11/08/17 06:12 Laboratory Results 11/06/17 06:40 11/07/17 11/08/17 11/09/17 05:59 05:59 05:59 Intake Total 880 330 260 Output Total 1675 1050 500 Balance -795 -720 -240 - Time Spent With Patient Time Spent With Patient: Greater than 35 min floor time today, including more than 50% of time in coordination of care during staffing meeting, and counseling patient. Physical Exam - Physical Exam General Appearance: WD/WN, alert, no apparent distress Respiratory: normal breath sounds, No crackles, No rhonchi, No wheezing Cardiac/Chest: regular rate, rhythm, No diastolic murmur, No systolic murmur Skin: normal color, warm/dry Neuro/Psych: alert, normal mood/affect, oriented x 3, motor weakness (Left upper and lower extremities) ICD10 Worksheet Patient Problems: Problems Problem Status Onset Hemorrhagic cerebrovascular accident (CVA) Acute
[2017-11-09] MEDS: POLYETHYLENE GLYCOL 3350 17 GM PKT PO SCH (09:45)
[2017-11-09] MEDS: SENNOSIDES 1 TAB PO SCH ×2 (09:45→20:28)
[2017-11-09] MEDS: ENOXAPARIN 40 MG/0.4 ML SYR SC SCH (09:45)
[2017-11-09] MEDS: buPROPion XL 150 MG TAB PO SCH (09:45)
[2017-11-09] MEDS ORDERED: LISINOPRIL 20 MG TAB PO SCH (10:58)
[2017-11-09] MEDS: LISINOPRIL 20 MG TAB PO SCH (11:35)
[2017-11-09] MEDS: METOPROLOL TARTRATE 25 MG TAB PO SCH ×2 (11:36→21:03)
--- NOTE | 2017-11-09 14:41 | SOAPPROG ---
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 * Initial functional independence measure 53 on 11/08/2017. Bed mobility requires moderate assistance of 1 and cuing. Seated balance requires contact guard assist. Transfers require moderate to maximal assist of 1 and arising to standing from seated requires minimal assist of 1. She has a 2 person transfer per nursing. She has trace lower extremity movement. Upper body dressing requires minimal to moderate assist and lower body dressing requires maximal assist. Bath transfer requires total assist, bathing requires minimal assist. Toilet transfer requires moderate assist. She has shoulder elevation and scapula retraction. * Continue PT and OT to optimize mobility, activities of daily living to the modified independent level for eating and grooming and minimal assist level for bed mobility and transfers. Cognitive impairment and communication deficit. * Dysexecutive with decreased problem-solving. * Continue Speech and Language Pathology. Dysphagia. * On dysphagia 3 diet texture with thin liquids. Receiving neuromuscular electronic stimulation. * Continue MOUNTER CLARINETS. Hypertension precedes the CVA. * Low blood pressures noted. Antihypertensives held this morning. Reduced lisinopril from 20 mg twice daily to 10 mg twice daily and amlodipine from 10 mg q.day to 5 mg q.day. Continue to monitor. * Not using p.r.n. Hydralazine so changed blood pressure monitoring from q.4 hours to Q shift starting 11/06/2017. Anxiety and history of PTSD. Continue bupropion and p.r.n. clonazepam. * She does not feel that she needs a psychiatry consult regarding her dreams especially now that her sleep is improved. Prophylaxis. The question of DVT prophylaxis was discussed with Neurosurgery. They approve pharmacologic DVT prophylaxis. She is refusing SCDs at night; discontinue 11/09/2017. Initiated subcutaneous heparin 5000 units subcutaneous q.8 hours. She dislikes the injection so changed to enoxaparin 40 mg subcutaneous q.day starting 5 03/01/2018. FOLLOWUP: She should have followup with neurosurgeon, Dr. Maciel, in approximately 2 weeks, or approximately November 17, if she is still in the inpatient rehabilitation hospital at that time. Postponing followup until after discharge will be discussed with Neurosurgery. DISPOSITION: Lives in apartment with her with an elevator to enter and then single-level. 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 She tends to discharge home with her . She intends to return to work. Discharge date set for . 11/09/17 14:37 Subjective: No complaints. Sleeping well. Not in pain. Beginning to have some improved movement in the left upper and lower extremities. Objective: Vital Signs Temp Pulse Resp BP Pulse Ox 37.0 C 63 18 100/59 L 94 11/09/17 09:43 11/09/17 09:43 11/09/17 09:43 11/09/17 09:43 11/09/17 09:43 Laboratory Results 11/06/17 06:40 11/08/17 11/09/17 11/10/17 05:59 05:59 05:59 Intake Total 330 740 850 Output Total 1050 700 300 Balance -720 40 550 Physical Exam - Physical Exam General Appearance: WD/WN, alert, no apparent distress Respiratory: normal breath sounds, No crackles, No rhonchi, No wheezing Cardiac/Chest: regular rate, rhythm, No edema, No diastolic murmur, No systolic murmur Skin: normal color, warm/dry, other (Minimal areas of ecchymosis on left arm) Neuro/Psych: alert, normal mood/affect, oriented x 3, facial droop (Left), motor weakness (Left upper and lower extremity), No sensory deficit ICD10 Worksheet Patient Problems: Problems Problem Status Onset Hemorrhagic cerebrovascular accident (CVA) Acute
[2017-11-10] MEDS: POLYETHYLENE GLYCOL 3350 17 GM PKT PO SCH (09:11)
[2017-11-10] MEDS: buPROPion XL 150 MG TAB PO SCH (09:12)
[2017-11-10] MEDS: SENNOSIDES 1 TAB PO SCH ×2 (09:14→21:52)
[2017-11-10] MEDS: ENOXAPARIN 40 MG/0.4 ML SYR SC SCH (09:16)
[2017-11-10] MEDS: METOPROLOL TARTRATE 25 MG TAB PO SCH (09:25)
[2017-11-10] MEDS: LISINOPRIL 20 MG TAB PO SCH (09:31)
--- NOTE | 2017-11-10 09:41 | SOAPPROG ---
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 * Initial functional independence measure 53 on 11/08/2017. Bed mobility requires moderate assistance of 1 and cuing. Seated balance requires contact guard assist. Transfers require moderate to maximal assist of 1 and arising to standing from seated requires minimal assist of 1. She has a 2 person transfer per nursing. She has trace lower extremity movement. Upper body dressing requires minimal to moderate assist and lower body dressing requires maximal assist. Bath transfer requires total assist, bathing requires minimal assist. Toilet transfer requires moderate assist. She has shoulder elevation and scapula retraction. * Continue PT and OT to optimize mobility, activities of daily living to the modified independent level for eating and grooming and minimal assist level for bed mobility and transfers. Cognitive impairment and communication deficit. * Dysexecutive with decreased problem-solving. * Continue Speech and Language Pathology. Dysphagia. * On dysphagia 3 diet texture with thin liquids. Receiving neuromuscular electronic stimulation. 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 Hypertension precedes the CVA. * Has had low blood pressures. Discontinued amlodipine 11/10/2017 and set parameters for lisinopril to not give for blood pressure less than 110/60. No clear indication for a beta brian so will discontinue metoprolol. * Not using p.r.n. Hydralazine so changed blood pressure monitoring from q.4 hours to Q shift starting 11/06/2017. Anxiety and history of PTSD. Continue bupropion and p.r.n. clonazepam. * She does not feel that she needs a psychiatry consult regarding her dreams especially now that her sleep is improved. Prophylaxis. The question of DVT prophylaxis was discussed with Neurosurgery. They approve pharmacologic DVT prophylaxis. She is refusing SCDs at night; discontinue 11/09/2017. Initiated subcutaneous heparin 5000 units subcutaneous q.8 hours. She dislikes the injection so changed to enoxaparin 40 mg subcutaneous q.day starting 5 03/01/2018. FOLLOWUP: She should have followup with neurosurgeon, Dr. Maciel, in approximately 2 weeks, or approximately November 17, if she is still in the inpatient rehabilitation hospital at that time. Postponing followup until after discharge will be discussed with Neurosurgery. DISPOSITION: Lives in apartment with her with an elevator to enter and then single-level. 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 She tends to discharge home with her . She intends to return to work. Discharge date set for . 11/10/17 09:35 Subjective: No complaints this morning. Slept well. Reports an episode of urinary incontinence when she could not get to the bathroom soon enough. has been approved to transfer her in out of bed but not to bathroom. Denies lightheadedness. [place] groggy yesterday when her blood pressure was low. She is working on drinking more fluids. Objective: Vital Signs Temp Pulse Resp BP Pulse Ox 37.1 C 66 16 99/69 L 94 11/10/17 06:38 11/10/17 09:25 11/10/17 06:38 11/10/17 09:31 11/10/17 06:38 Laboratory Results 11/06/17 06:40 11/09/17 11/10/17 11/11/17 05:59 05:59 05:59 Intake Total 740 1820 Output Total 700 300 Balance 40 1520 Physical Exam - Physical Exam General Appearance: WD/WN, alert, no apparent distress Respiratory: No respiratory distress, No accessory muscle use Skin: normal color, warm/dry Neuro/Psych: alert, normal mood/affect, oriented x 3, motor weakness (Left upper and lower extremities) ICD10 Worksheet Patient Problems: Problems Problem Status Onset Hemorrhagic cerebrovascular accident (CVA) Acute
[2017-11-11] MEDS: LISINOPRIL 20 MG TAB PO SCH (09:02)
[2017-11-11] MEDS: ENOXAPARIN 40 MG/0.4 ML SYR SC SCH (09:03)
[2017-11-11] MEDS: buPROPion XL 150 MG TAB PO SCH (09:03)
[2017-11-11] MEDS: POLYETHYLENE GLYCOL 3350 17 GM PKT PO SCH (09:03)
[2017-11-11] MEDS: SENNOSIDES 1 TAB PO SCH ×2 (09:03→21:26)
--- NOTE | 2017-11-11 15:55 | SOAPPROG ---
SOAP Progress Note Assessment/Plan: 47-year-old woman status post right basal ganglia hemorrhagic stroke with left- sided hemiparesis. Today's update: Participating well in therapies, she was standing with 2 person assist trialing an AFO, will try a more rigid AFO as well. No acute medical concerns interfering with therapies. Continue rehabilitation plan. Total of 25 min was spent on the floor in the care of the patient, the majority of which was spent in the counseling and coordination of care regarding therapy and orthotics with the therapists. Issues reviewed without change today include urinary urgency and incontinence, constipation, DVT prophylaxis, hypertension, anxiety and history of PTSD. Plan to follow up with Neurosurgery after discharge. 11/07/17 10:10 11/11/17 15:52 Subjective: Chief complaint: Neuromuscular re-education No acute events overnight. Patient denies any new shortness of breath or chest pain, no new numbness, tingling, or weakness. She is working well in therapies and the therapies did not have any concerns today. She was standing with 2 person assist, left-sided AFO that was not particularly rigid. Knee control was managed by the therapist. She also used a left-sided arm sling. A to considerable focus and neuromuscular control to maintain quiet standing with hips facing forward. Patient did not have any particular concerns today, felt like things were going well. Objective: Vital Signs Temp Pulse Resp BP Pulse Ox 36.8 C 63 15 116/70 93 11/11/17 07:30 11/11/17 08:58 11/11/17 07:30 11/11/17 08:58 11/11/17 07:30 Laboratory Results 11/06/17 06:40 11/10/17 11/11/17 11/12/17 05:59 05:59 05:59 Intake Total 1820 650 Output Total 300 Balance 1520 650 Physical Exam - Physical Exam General Appearance: WD/WN, alert, no apparent distress EENT: No scleral icterus (R), No scleral icterus (L) Respiratory: No respiratory distress, No accessory muscle use Skin: normal color, warm/dry, No cyanosis, No diaphoresis Extremities: No pedal edema, No swelling Neuro/Psych: alert, normal mood/affect, motor weakness (Dense left hemiparesis) , other (Working with the therapist as described in the subjective history) ICD10 Worksheet Patient Problems: Problems Problem Status Onset Hemorrhagic cerebrovascular accident (CVA) Acute
[2017-11-11] MEDS ORDERED: BENEFIBER/NUTRISOURCE FIBER PKT 1 EACH PO SCH (16:00)
[2017-11-12] MEDS: POLYETHYLENE GLYCOL 3350 17 GM PKT PO SCH (09:00)
[2017-11-12] MEDS: ENOXAPARIN 40 MG/0.4 ML SYR SC SCH (09:01)
[2017-11-12] MEDS: buPROPion XL 150 MG TAB PO SCH (09:01)
[2017-11-12] MEDS: SENNOSIDES 1 TAB PO SCH ×2 (09:02→20:46)
--- NOTE | 2017-11-12 11:45 | SOAPPROG ---
SOAP Progress Note Assessment/Plan: 47-year-old woman status post right basal ganglia hemorrhagic stroke with left- sided hemiparesis. Today's update: Working well with therapies, blood pressure was slightly low and lisinopril was held but nursing then recheck did and gave lisinopril. Continue to monitor closely. Working well with therapies. Plan to try more solid AFO today. Issues reviewed without change today include urinary urgency and incontinence, constipation, DVT prophylaxis, hypertension, anxiety and history of PTSD. Plan to follow up with Neurosurgery after discharge. 11/07/17 10:10 11/11/17 15:52 11/12/17 11:43 Subjective: Chief complaint: Rehab progress No acute events overnight. Patient denies any new shortness of breath or chest pain, no new numbness, tingling, or weakness. She reports no issues in working with therapy, she slept well. Lisinopril briefly held because of lower blood pressure, but given later with higher blood pressure. Objective: Vital Signs Temp Pulse Resp BP Pulse Ox 36.9 C 67 16 118/75 94 11/12/17 06:34 11/12/17 10:00 11/12/17 06:34 11/12/17 10:00 11/12/17 10:00 Laboratory Results 11/06/17 06:40 11/11/17 11/12/17 11/13/17 05:59 05:59 05:59 Intake Total 650 1018 Balance 650 1018 Physical Exam - Physical Exam General Appearance: WD/WN, alert, no apparent distress Respiratory: No respiratory distress, No accessory muscle use Cardiac/Chest: normal peripheral pulses, regular rate, rhythm, No edema Skin: normal color, warm/dry, No cyanosis, No diaphoresis Extremities: No pedal edema, No swelling Neuro/Psych: alert, oriented x 3, motor weakness (Dense hemiparesis), No normal mood/affect (Normal mood but flat affect) ICD10 Worksheet Patient Problems: Problems Problem Status Onset Hemorrhagic cerebrovascular accident (CVA) Acute
[2017-11-12] MEDS: LISINOPRIL 20 MG TAB PO SCH (12:12)
[2017-11-13] MEDS: buPROPion XL 150 MG TAB PO SCH (08:58)
[2017-11-13] MEDS: ENOXAPARIN 40 MG/0.4 ML SYR SC SCH (08:58)
[2017-11-13] MEDS: LISINOPRIL 20 MG TAB PO SCH (09:00)
[2017-11-13] MEDS: SENNOSIDES 1 TAB PO SCH ×2 (09:02→20:18)
[2017-11-13] MEDS: POLYETHYLENE GLYCOL 3350 17 GM PKT PO SCH (09:02)
--- NOTE | 2017-11-13 17:34 | SOAPPROG ---
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 * Initial functional independence measure 53 on 11/08/2017. Bed mobility requires moderate assistance of 1 and cuing. Seated balance requires contact guard assist. Transfers require moderate to maximal assist of 1 and arising to standing from seated requires minimal assist of 1. She has a 2 person transfer per nursing. She has trace lower extremity movement. Upper body dressing requires minimal to moderate assist and lower body dressing requires maximal assist. Bath transfer requires total assist, bathing requires minimal assist. Toilet transfer requires moderate assist. She has shoulder elevation and scapula retraction. * Continue PT and OT to optimize mobility, activities of daily living to the modified independent level for eating and grooming and minimal assist level for bed mobility and transfers. Cognitive impairment and communication deficit. * Dysexecutive with decreased problem-solving. * Continue Speech and Language Pathology. Dysphagia. * On dysphagia 3 diet texture with thin liquids. Receiving neuromuscular electronic stimulation. 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 Hypertension precedes the CVA. * Has had low blood pressures. Discontinued amlodipine 11/10/2017 and set parameters for lisinopril to not give for blood pressure less than 110/60. No clear indication for a beta brian so will discontinue metoprolol. * Not using p.r.n. Hydralazine so changed blood pressure monitoring from q.4 hours to Q shift starting 11/06/2017. Constipation. Clear etiology, but she required magnesium citrate earlier on in her rehabilitation stay. * Increase senna from 1 tablet twice daily to 2 tablets twice daily starting 11/13. Seasonal allergies. Start cetirizine 10 mg; will give at bedtime so that she has her 1st dose today, 11/13/2017. Anxiety and history of PTSD. Continue bupropion and p.r.n. clonazepam. * She does not feel that she needs a psychiatry consult regarding her dreams especially now that her sleep is improved. Prophylaxis. The question of DVT prophylaxis was discussed with Neurosurgery. They approve pharmacologic DVT prophylaxis. She is refusing SCDs at night; discontinue 11/09/2017. Initiated subcutaneous heparin 5000 units subcutaneous q.8 hours. She dislikes the injection so changed to enoxaparin 40 mg subcutaneous q.day starting 5 03/01/2018. FOLLOWUP: She should have followup with neurosurgeon, Dr. Maciel, in approximately 2 weeks, or approximately November 17, if she is still in the inpatient rehabilitation hospital at that time. Postponing followup until after discharge will be discussed with Neurosurgery. DISPOSITION: Lives in apartment with her with an elevator to enter and then single-level. 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 She tends to discharge home with her . She intends to return to work. Discharge date set for . 11/13/17 17:32 Subjective: Has constipation times several days. Reports symptoms of seasonal allergies and has noted pollen blowing off the trees out her window. Otherwise without complaints. No cough or dyspnea. No fevers or chills. Good appetite. Objective: Vital Signs Temp Pulse Resp BP Pulse Ox 36.8 C 73 18 122/81 H 94 11/13/17 05:50 11/13/17 08:51 11/13/17 05:50 11/13/17 09:00 11/13/17 05:50 Laboratory Results 11/06/17 06:40 11/12/17 11/13/17 11/14/17 05:59 05:59 05:59 Intake Total 1018 1350 195 Balance 1018 1350 195 Physical Exam - Physical Exam General Appearance: WD/WN, alert, no apparent distress Respiratory: normal breath sounds, No crackles, No rhonchi, No wheezing Cardiac/Chest: regular rate, rhythm, No edema, No diastolic murmur, No systolic murmur Skin: normal color, warm/dry Neuro/Psych: alert, normal mood/affect, oriented x 3, motor weakness (Left upper and lower extremities) ICD10 Worksheet Patient Problems: Problems Problem Status Onset Hemorrhagic cerebrovascular accident (CVA) Acute
[2017-11-13] MEDS: CETIRIZINE 10 MG TAB PO SCH (20:18)
[2017-11-14] MEDS: ENOXAPARIN 40 MG/0.4 ML SYR SC SCH (08:49)
[2017-11-14] MEDS: buPROPion XL 150 MG TAB PO SCH (08:49)
[2017-11-14] MEDS: SENNOSIDES 1 TAB PO SCH ×2 (08:55→21:38)
[2017-11-14] MEDS: POLYETHYLENE GLYCOL 3350 17 GM PKT PO SCH (08:55)
[2017-11-14] MEDS: LISINOPRIL 20 MG TAB PO SCH (09:03)
--- NOTE | 2017-11-14 10:42 | SOAPPROG ---
SOAP Progress Note Assessment/Plan: 47-year-old woman status post right basal ganglia hemorrhagic stroke with left- sided hemiparesis. Today's update: Therapy going well, no new medical barriers to rehabilitation progress today. A total of 15 min was spent on the floor in the care of the patient, the majority of which was spent counseling coordination of care regarding potential barriers to rehabilitation progress. Issues reviewed without change today include urinary urgency and incontinence, constipation, DVT prophylaxis, hypertension, anxiety and history of PTSD. Plan to follow up with Neurosurgery after discharge. 11/07/17 10:10 11/11/17 15:52 11/12/17 11:43 11/14/17 10:39 Subjective: Chief complaint: Rehabilitation progress No acute events overnight. Patient denies any new shortness of breath or chest pain, no new numbness, tingling, or weakness. She is making good progress in therapy, no concerns from nursing, family, or the patient. Objective: Vital Signs Temp Pulse Resp BP Pulse Ox 36.8 C 60 18 100/60 93 11/14/17 06:26 11/14/17 06:26 11/14/17 06:26 11/14/17 09:03 11/14/17 06:26 Laboratory Results 11/06/17 06:40 11/13/17 11/14/17 11/15/17 05:59 05:59 05:59 Intake Total 1350 495 Balance 1350 495 Physical Exam - Physical Exam General Appearance: alert, no apparent distress EENT: No scleral icterus (R), No scleral icterus (L) Respiratory: No respiratory distress, No accessory muscle use Cardiac/Chest: normal peripheral pulses, regular rate, rhythm, No edema Extremities: non-tender, No pedal edema, No calf tenderness, No swelling, No Priya's sign Neuro/Psych: alert, normal mood/affect, oriented x 3, other (Right-sided gaze preference, dense left hemiparesis) ICD10 Worksheet Patient Problems: Problems Problem Status Onset Hemorrhagic cerebrovascular accident (CVA) Acute
[2017-11-14] MEDS: LISINOPRIL 5 MG TAB PO SCH (15:19)
[2017-11-14] MEDS: BISACODYL 10 MG SUPP PR PRN (18:32)
[2017-11-14] MEDS: CETIRIZINE 10 MG TAB PO SCH (21:38)
[2017-11-15] MEDS: ENOXAPARIN 40 MG/0.4 ML SYR SC SCH (08:19)
[2017-11-15] MEDS: POLYETHYLENE GLYCOL 3350 17 GM PKT PO SCH (08:19)
[2017-11-15] MEDS: buPROPion XL 150 MG TAB PO SCH (08:19)
[2017-11-15] MEDS: SENNOSIDES 1 TAB PO SCH ×2 (08:20→20:32)
[2017-11-15] MEDS: LISINOPRIL 5 MG TAB PO SCH (08:23)
--- NOTE | 2017-11-15 09:46 | SOAPPROG ---
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 * Initial functional independence measure 53 on 11/08/2017, improved to 67 as of 11/15/2017. Continues to have decreased midline awareness. Generally standby assist level for mobility though transfers are requiring minimal assist. Upper body dressing requires setup to standby assist, lower body dressing requires minimal assist for balance. Grooming and hygiene required assist for seated positioning. Bathing requires minimal assist. She has some return of scapular movement and is beginning to have some return of left lower extremity * Continue PT and OT to optimize mobility, activities of daily living to the modified independent level for eating and grooming and minimal assist level for bed mobility and transfers. Cognitive impairment and communication deficit. * Dysexecutive with decreased problem-solving and impaired visuospatial awareness. Scored 2.4/5 on CLQT. * Continue Speech and Language Pathology. Dysphagia. * On dysphagia 3 diet texture with thin liquids. Receiving neuromuscular electronic stimulation. * Continue NEWS ASSIGNMENT EDITOR. Hypertension precedes the CVA. * All antihypertensives have been discontinued for blood pressure is running low. * Continued hydralazine on an as-needed basis. * Unclear why her blood pressure has normalized compared to hypertension prior to CVA. Will continue to monitor. Constipation. Clear etiology, but she required magnesium citrate earlier on in her rehabilitation stay. * Increase senna from 1 tablet twice daily to 2 tablets twice daily starting 11/13. Seasonal allergies. Start cetirizine 10 mg; will give at bedtime so that she has her 1st dose today, 11/13/2017. Anxiety and history of PTSD. Continue bupropion and p.r.n. clonazepam. * She does not feel that she needs a psychiatry consult regarding her dreams especially now that her sleep is improved. Prophylaxis. The question of DVT prophylaxis was discussed with Neurosurgery. They approve pharmacologic DVT prophylaxis. She is refusing SCDs at night; discontinue 11/09/2017. Initiated subcutaneous heparin 5000 units subcutaneous q.8 hours. She dislikes the injection so changed to enoxaparin 40 mg subcutaneous q.day starting 5 03/01/2018. FOLLOWUP: Hospital discharge information recommended followup with neurosurgeon , Dr. Maciel, in approximately 2 weeks, or approximately November 17. Discussed with CONNOR mon, 11/15/2017. Follow-up head CT has been ordered. He will discuss with Dr. Maciel regarding whether she needs to be seen or can follow up with Dr. Burrows after discharge from inpatient rehabilitation. DISPOSITION: Attended staffing, 15 min. Discussed with case management, dietitian, nursing, PT, OT, NEWS ASSIGNMENT EDITOR. Lives in apartment with her with an elevator to enter and then single-level. She tends to discharge home with her . She intends to return to work. Continue discharge date of 12/01/2017. 11/15/17 12:35 Subjective: No complaints. Allergy symptoms improved with cetirizine. Sleeping well. Not in pain. No cough or dyspnea, no fevers or chills. Objective: Vital Signs Temp Pulse Resp BP Pulse Ox 36.9 C 74 14 94/78 L 94 11/15/17 06:25 11/15/17 06:25 11/15/17 06:25 11/15/17 08:23 11/15/17 06:25 Laboratory Results 11/06/17 06:40 11/14/17 11/15/17 11/16/17 05:59 05:59 05:59 Intake Total 495 800 Output Total 1 Balance 495 799 - Time Spent With Patient Time Spent With Patient: Greater than 35 min floor time today, including more than 50% of time in coordination of care during staffing meeting, and counseling patient and . Physical Exam - Physical Exam General Appearance: WD/WN, alert, no apparent distress Respiratory: No respiratory distress, No accessory muscle use Skin: normal color, warm/dry Neuro/Psych: alert, normal mood/affect, oriented x 3, motor weakness (Left upper and lower extremities), other (Observed transfer with PT, required assistance for blocking left leg and to arise from seated. Improved midline control once seated on the PT mat.) ICD10 Worksheet Patient Problems: Problems Problem Status Onset Hemorrhagic cerebrovascular accident (CVA) Acute
[2017-11-15] MEDS: CETIRIZINE 10 MG TAB PO SCH (20:32)
[2017-11-16] MEDS: buPROPion XL 150 MG TAB PO SCH (08:08)
[2017-11-16] MEDS: POLYETHYLENE GLYCOL 3350 17 GM PKT PO SCH (08:08)
[2017-11-16] MEDS: SENNOSIDES 1 TAB PO SCH ×2 (08:08→20:22)
[2017-11-16] MEDS: ENOXAPARIN 40 MG/0.4 ML SYR SC SCH (08:08)
--- NOTE | 2017-11-16 10:43 | SOAPPROG ---
SOAP Progress Note Assessment/Plan: 47-year-old woman status post right basal ganglia hemorrhagic stroke with left- sided hemiparesis. Today's update: Therapy continues to go well. I counseled them at length on risk factor management for stroke prevention including monitoring blood pressure , going through prior medications and habits for minimizing blood pressure. Also discussed possible follow up with Dr. Maciel, and usual workup of causes for hemorrhagic stroke. Potential contributors to high blood pressure could have been alcohol use, decongestant use, caffeine. However etiology of her hypertension is unclear. It is currently managed without medications, plan to keep a close eye on it. A total of 35 min was spent on the floor in the care of the patient, the majority of which was spent in counseling and coordination of care regarding the issues above. Issues reviewed without change today include urinary urgency and incontinence, constipation, DVT prophylaxis, hypertension, anxiety and history of PTSD. Plan to follow up with Neurosurgery after discharge. 11/07/17 10:10 11/11/17 15:52 11/12/17 11:43 11/14/17 10:39 11/16/17 10:40 Subjective: Chief complaint: Secondary prevention of stroke No acute events overnight. Patient denies any new shortness of breath or chest pain, no new numbness, tingling, or weakness. She is concerned about her risk of an additional stroke and I talk with her and her at length is also noted in the assessment plan. They want to understand there were risk for hypertension and contributors for stroke risk. They understand that they will be following up with Neurosurgery most likely after discharge with a head CT and possibly additional imaging to assess for vascular malformations or tumors, or other potential causes for intercerebral hemorrhage. Otherwise, they state that therapy is going well they do not have any concerns. Her work has been very accommodating for her absence. Objective: Vital Signs Temp Pulse Resp BP Pulse Ox 36.9 C 65 15 87/60 L 92 11/16/17 06:26 11/16/17 06:26 11/16/17 06:26 11/16/17 06:26 11/16/17 06:26 Laboratory Results 11/06/17 06:40 11/15/17 11/16/17 11/17/17 05:59 05:59 05:59 Intake Total 800 1090 Output Total 1 Balance 799 1090 Physical Exam - Physical Exam General Appearance: WD/WN, alert, no apparent distress Respiratory: No respiratory distress, No accessory muscle use Cardiac/Chest: normal peripheral pulses, regular rate, rhythm, No edema Skin: normal color, warm/dry, No cyanosis, No diaphoresis Extremities: non-tender, No pedal edema, No calf tenderness, No swelling Neuro/Psych: alert, oriented x 3, No normal mood/affect (Flat affect, endorses normal mood) ICD10 Worksheet Patient Problems: Problems Problem Status Onset Hemorrhagic cerebrovascular accident (CVA) Acute
[2017-11-16] MEDS: CETIRIZINE 10 MG TAB PO SCH (20:22)
[2017-11-17] MEDS: POLYETHYLENE GLYCOL 3350 17 GM PKT PO SCH (10:11)
[2017-11-17] MEDS: ENOXAPARIN 40 MG/0.4 ML SYR SC SCH (10:17)
[2017-11-17] MEDS: buPROPion XL 150 MG TAB PO SCH (10:17)
[2017-11-17] MEDS: SENNOSIDES 1 TAB PO SCH ×2 (10:17→20:13)
--- NOTE | 2017-11-17 13:07 | SOAPPROG ---
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 * Initial functional independence measure 53 on 11/08/2017, improved to 67 as of 11/15/2017. Continues to have decreased midline awareness. Generally standby assist level for mobility though transfers are requiring minimal assist. Upper body dressing requires setup to standby assist, lower body dressing requires minimal assist for balance. Grooming and hygiene required assist for seated positioning. Bathing requires minimal assist. She has some return of scapular movement and is beginning to have some return of left lower extremity * As of 11/17/2017, beginning to ambulate. * Continue PT and OT to optimize mobility, activities of daily living to the modified independent level for eating and grooming and minimal assist level for bed mobility and transfers. Cognitive impairment and communication deficit. * Dysexecutive with decreased problem-solving and impaired visuospatial awareness. Scored 2.4/5 on CLQT. * Continue Speech and Language Pathology. Dysphagia. * Advanced to regular diet with thin liquids.. Continuing neuromuscular electronic stimulation. * Continue REPLENISHMENT ASSOCIATE. Hypertension precedes the CVA. * All antihypertensives have been discontinued for blood pressure is running low. * Continued hydralazine on an as-needed basis. * Unclear why her blood pressure has normalized compared to hypertension prior to CVA. Will continue to monitor. Constipation. * Increase senna from 1 tablet twice daily to 2 tablets twice daily starting 11/13. * Improving with resumption of her usual diet after improvement in swallowing. Seasonal allergies. Start cetirizine 10 mg; will give at bedtime so that she has her 1st dose today, 11/13/2017. Anxiety and history of PTSD. Continue bupropion and p.r.n. clonazepam. * She does not feel that she needs a psychiatry consult regarding her dreams especially now that her sleep is improved. Prophylaxis. The question of DVT prophylaxis was discussed with Neurosurgery. They approve pharmacologic DVT prophylaxis. She is refusing SCDs at night; discontinue 11/09/2017. Initiated subcutaneous heparin 5000 units subcutaneous q.8 hours. She dislikes the injection so changed to enoxaparin 40 mg subcutaneous q.day starting 5 03/01/2018. FOLLOWUP: Hospital discharge information recommended followup with neurosurgeon , Dr. Maciel, in approximately 2 weeks, or approximately November 17. Discussed with CONNOR WARRENC yaa, 11/15/2017. Follow-up head CT has been ordered. He will discuss with Dr. Maciel regarding whether she needs to be seen or can follow up with Dr. Burrows after discharge from inpatient rehabilitation. DISPOSITION: Attended family conference, 30 min. Patient and present. Discussed with case management, nursing, PT, OT, REPLENISHMENT ASSOCIATE. Lives in apartment with her with an elevator to enter and then single-level. Continue plan for discharge home with on 12/01/2017. 11/17/17 13:05 Subjective: No complaints. Sleeping well. Diet has been advanced to regular textures and as she resumes her usual diet high in vegetables her constipation is resolving. Objective: Vital Signs Temp Pulse Resp BP Pulse Ox 36.8 C 90 18 115/85 H 94 11/17/17 08:00 11/17/17 08:00 11/17/17 08:00 11/17/17 08:00 11/17/17 08:00 Laboratory Results 11/06/17 06:40 11/16/17 11/17/17 11/18/17 05:59 05:59 05:59 Intake Total 1090 1000 120 Balance 1090 1000 120 - Time Spent With Patient Time Spent With Patient: Greater than 35 min floor time today, including more than 50% of time in coordination of care and counseling patient and during family meeting. Physical Exam - Physical Exam General Appearance: WD/WN, alert, no apparent distress Respiratory: No accessory muscle use, No decreased breath sounds Skin: normal color, warm/dry Neuro/Psych: alert, normal mood/affect, oriented x 3, abnormal gait (Ambulating hallway with assist of 2 physical therapists, trekking pole in right hand. Therapist assisting in weight shift to right and advancing left leg. Has left AFO in place.), motor weakness (Left upper and lower extremities) ICD10 Worksheet Patient Problems: Problems Problem Status Onset Hemorrhagic cerebrovascular accident (CVA) Acute
[2017-11-17] MEDS: CETIRIZINE 10 MG TAB PO SCH (20:12)
[2017-11-18] MEDS: buPROPion XL 150 MG TAB PO SCH (09:34)
[2017-11-18] MEDS: SENNOSIDES 1 TAB PO SCH ×2 (09:35→20:12)
[2017-11-18] MEDS: ENOXAPARIN 40 MG/0.4 ML SYR SC SCH (09:35)
[2017-11-18] MEDS: POLYETHYLENE GLYCOL 3350 17 GM PKT PO SCH (09:35)
[2017-11-18] MEDS ORDERED: POLYETHYLENE GLYCOL 3350 17 GM PKT PO PRN (13:43)
--- NOTE | 2017-11-18 13:47 | HOSPPROG ---
Hospitalist Progress Note Assessment/Plan: Assessment: 47 yo F p/w hemorrhagic CVA Plan: # Right basal ganglia hemorrhagic CVA. Residual left upper and lower extremity flaccid paralysis -cryptogenic, unclear whether her elevated BP was the cause of the hemorrhage vs. a result of it, but she is off BP Rx as BP has stabilized between 110-120 -PRN hydralazine if SBP > 160 # Constipation. Resolved -adjusted to senokot-s 1 bid, PRN miralax # Anxiety and history of PTSD. Continue bupropion and p.r.n. clonazepam. Prophylaxis. Lovenox 40 Code. Full Diet. 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 ADD 12/01 to home, requiring ongoing therapy Subjective: no physical complaints Objective: Vital Signs Temp Pulse Resp BP Pulse Ox 36.4 C 74 16 108/76 94 11/18/17 06:24 11/18/17 06:24 11/18/17 06:24 11/18/17 06:24 11/18/17 06:24 Laboratory Results 11/06/17 06:40 11/17/17 11/18/17 11/19/17 05:59 05:59 05:59 Intake Total 1000 870 Balance 1000 870 - Physical Exam Constitutional: no apparent distress, appears nourished, not in pain, No uncomfortable Cardiovascular: regular rate and rhythym, no murmur, rub, or gallop, No edema Respiratory: no respiratory distress, no rales or rhonchi, clear to auscultation Gastrointestinal: normoactive bowel sounds, soft, non-tender abdomen, no palpable masses, No distension Neurologic: AAOx3, sensation intact bilaterally, weakness (LUE/LLE motor 0/5, RUE/RLE 5/5 motor) Psychiatric: not anxious, not encephalopathic, thought process linear, flat affect ICD10 Worksheet Patient Problems: Problems Problem Status Onset Hemorrhagic cerebrovascular accident (CVA) Acute
[2017-11-18] MEDS: CETIRIZINE 10 MG TAB PO SCH (20:11)
[2017-11-19] MEDS: SENNOSIDES 1 TAB PO SCH ×2 (08:54→20:29)
[2017-11-19] MEDS: buPROPion XL 150 MG TAB PO SCH (08:54)
[2017-11-19] MEDS: ENOXAPARIN 40 MG/0.4 ML SYR SC SCH (08:57)
--- NOTE | 2017-11-19 12:48 | HOSPPROG ---
Hospitalist Progress Note Assessment/Plan: Assessment: 47 yo F p/w hemorrhagic CVA Plan: # Right basal ganglia hemorrhagic CVA w/ L hemiparalysis. Residual left upper and lower extremity flaccid paralysis -reviewed outside records (Consultation by Dr. Heriberto Foster, [place] Summary by Dr. Lucho Cody, presumed etiology of her bleed was HTN emergency 2/2 acute worsening of chronic HTN 2/2 decongestant usage, but, after aggressive mgmt of BP w/ nicardipine gtt and oral HTN Rx, she was weaned completely off of HTN Rx) -cryptogenic, unclear whether her elevated BP was the cause of the hemorrhage vs. a result of it, but she is off BP Rx as BP has stabilized between 110-120 -PRN hydralazine if SBP > 140 # Constipation. Resolved -adjusted to senokot-s 1 bid, PRN miralax # Anxiety and history of PTSD. Continue bupropion and p.r.n. clonazepam. Prophylaxis. Lovenox 40 Code. Full Diet. 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 ADD 12/01 to home, requiring ongoing therapy; patient reports that she will need to establish local PCP, as well as Neurology and NSGY f/u at discharge Subjective: no pain, moving bowels Objective: Vital Signs Temp Pulse Resp BP Pulse Ox 37.1 C 72 16 120/78 94 11/19/17 06:35 11/19/17 06:35 11/19/17 06:35 11/19/17 06:35 11/19/17 06:35 Laboratory Results 11/06/17 06:40 11/18/17 11/19/17 11/20/17 05:59 05:59 05:59 Intake Total 870 200 Balance 870 200 - Physical Exam Constitutional: no apparent distress, appears nourished, not in pain, No uncomfortable Cardiovascular: regular rate and rhythym, no murmur, rub, or gallop, No edema Respiratory: no respiratory distress, no rales or rhonchi, clear to auscultation Gastrointestinal: normoactive bowel sounds, soft, non-tender abdomen, no palpable masses Neurologic: AAOx3, sensation intact bilaterally, weakness (0/5 motor RUE/RLE), facial droop (L mouth palsy w/ L tongue deviation) Psychiatric: not encephalopathic, flat affect, No anxious, No agitated ICD10 Worksheet Patient Problems: Problems Problem Status Onset Hemorrhagic cerebrovascular accident (CVA) Acute
[2017-11-19] MEDS: CETIRIZINE 10 MG TAB PO SCH (20:29)
[2017-11-20] MEDS: ENOXAPARIN 40 MG/0.4 ML SYR SC SCH (09:04)
[2017-11-20] MEDS: buPROPion XL 150 MG TAB PO SCH (09:05)
[2017-11-20] MEDS: SENNOSIDES 1 TAB PO SCH ×2 (09:05→21:00)
--- NOTE | 2017-11-20 13:53 | SOAPPROG ---
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 * Initial functional independence measure 53 on 11/08/2017, improved to 67 as of 11/15/2017. Continues to have decreased midline awareness. Generally standby assist level for mobility though transfers are requiring minimal assist. Upper body dressing requires setup to standby assist, lower body dressing requires minimal assist for balance. Grooming and hygiene required assist for seated positioning. Bathing requires minimal assist. She has some return of scapular movement and is beginning to have some return of left lower extremity * As of 11/17/2017, beginning to ambulate. * Increased tone interfering with mobility. Initiate baclofen 10 mg three times daily starting 11/20/2017. * Continue PT and OT to optimize mobility, activities of daily living to the modified independent level for eating and grooming and minimal assist level for bed mobility and transfers. Cognitive impairment and communication deficit. * Dysexecutive with decreased problem-solving and impaired visuospatial awareness. Scored 2.4/5 on CLQT. * Continue Speech and Language Pathology. Dysphagia. * Advanced to regular diet with thin liquids.. Continuing neuromuscular electronic stimulation. * Continue APPLICATIONS COORDINATOR. Hypertension precedes the CVA. * All antihypertensives have been discontinued for blood pressure is running low. * Continued hydralazine on an as-needed basis. * Unclear why her blood pressure has normalized compared to hypertension prior to CVA. Will continue to monitor. Constipation. * Increase senna from 1 tablet twice daily to 2 tablets twice daily starting 11/13. * Improving with resumption of her usual diet after improvement in swallowing. Seasonal allergies. Start cetirizine 10 mg; will give at bedtime so that she has her 1st dose today, 11/13/2017. Anxiety and history of PTSD. Continue bupropion and p.r.n. clonazepam. * She does not feel that she needs a psychiatry consult regarding her dreams especially now that her sleep is improved. Prophylaxis. The question of DVT prophylaxis was discussed with Neurosurgery. They approve pharmacologic DVT prophylaxis. She is refusing SCDs at night; discontinue 11/09/2017. Initiated subcutaneous heparin 5000 units subcutaneous q.8 hours. She dislikes the injection so changed to enoxaparin 40 mg subcutaneous q.day starting 5 03/01/2018. FOLLOWUP: Hospital discharge information recommended followup with neurosurgeon , Dr. Maciel, in approximately 2 weeks, or approximately November 17. Discussed with CONONR mon, 11/15/2017. Follow-up head CT has been ordered. He will discuss with Dr. Maciel regarding whether she needs to be seen or can follow up with Dr. Burrows after discharge from inpatient rehabilitation. DISPOSITION: Lives in apartment with her with an elevator to enter and then single-level. Continue plan for discharge home with on 2017. This patient needs a wheelchair with an anti roll back device. She has a mobility limitation that significantly impairs 1 or more mobility related ADLs in the home, she has a functional deficit that cannot be resolved with a walker or cane, her home is adequate for accessing rooms maneuvering space and surfaces , a wheelchair will significantly improve the ability to participate in mobility related ADLs and she will use it regularly. She has not expressed and unwillingness to use the wheelchair, and she has sufficient physical and mental ability to use the wheelchair safely. She self propels the wheelchair and needs the anti roll back device because of use of ramps. 11/20/17 14:11 Subjective: No complaints. Slept well, not in pain. No cough or dyspnea, no fevers or chills. Therapy staff have noted increased tone in the lower extremities especially left lower extremity adductor tone and hamstring. Increased tone interferes with transfers and ambulation. Objective: Vital Signs Temp Pulse Resp BP Pulse Ox 36.8 C 73 17 117/86 H 94 11/20/17 07:40 11/20/17 07:40 11/20/17 07:40 11/20/17 07:40 11/20/17 07:40 Laboratory Results 11/06/17 06:40 11/19/17 11/20/17 11/21/17 05:59 05:59 05:59 Intake Total 200 900 200 Balance 200 900 200 Physical Exam - Physical Exam General Appearance: WD/WN, alert, no apparent distress Respiratory: No respiratory distress, No accessory muscle use Skin: normal color, warm/dry Neuro/Psych: alert, normal mood/affect, oriented x 3, abnormal hr clerk II-XII (Very little assistance needed to arise from chair. Subsequently ambulates with considerable assistance of 2 physical therapists helping with weight shift and left leg forward swing.), motor weakness (Left upper and lower extremities) ICD10 Worksheet Patient Problems: Problems Problem Status Onset Hemorrhagic cerebrovascular accident (CVA) Acute
[2017-11-20] MEDS: BACLOFEN 10 MG TAB PO SCH ×2 (16:43→21:00)
[2017-11-20] MEDS: CETIRIZINE 10 MG TAB PO SCH (21:00)
[2017-11-20] MEDS: BISACODYL 10 MG SUPP PR PRN (21:02)
[2017-11-21] MEDS: SENNOSIDES 1 TAB PO SCH (21:00)
[2017-11-21] MEDS: CETIRIZINE 10 MG TAB PO SCH (21:00)
[2017-11-21] MEDS: BACLOFEN 10 MG TAB PO SCH (22:00)
[2017-11-22] MEDS: BISACODYL 10 MG SUPP PR PRN (07:06)
[2017-11-22] MEDS: ENOXAPARIN 40 MG/0.4 ML SYR SC SCH ×2 (07:07→15:25)
[2017-11-22] MEDS: buPROPion XL 150 MG TAB PO SCH ×2 (09:20→15:25)
[2017-11-22] MEDS: SENNOSIDES 1 TAB PO SCH ×3 (09:20→20:34)
[2017-11-22] MEDS: BACLOFEN 10 MG TAB PO SCH ×4 (09:20→20:34)
--- NOTE | 2017-11-22 09:36 | SOAPPROG ---
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 * Initial functional independence measure 53 on 11/08/2017, improved to 67 as of 11/15/2017, and to 82 as of 11/22/2017. Standby assist for bed mobility, minimal assist for transfers with cues for sequencing. Ambulated 10-15 feet with single -point cane, AFO and assist of 2. Grooming and hygiene is supervision level except assistance for time hair in ponytail. Upper body dressing requires supervision to minimal assist, lower body dressing requires minimal assist for standing to hike her pants. For bath tear transfer is done with minimal assist and bathing with supervision and cues. Toileting requires minimal assist. She has left neglect. She has return of movement to the left arm but is apraxic. * Increased tone interfering with mobility. Initiated baclofen 10 mg three times daily starting 11/20/2017. * Continue PT and OT to optimize mobility, activities of daily living to the modified independent level for eating and grooming and minimal assist level for bed mobility and transfers. Cognitive impairment and communication deficit. * Executive function improving with better impulse control and inhibition. * Continue Speech and Language Pathology. Dysphagia. * Advanced to regular diet with thin liquids, and as of 11/22/2017, medications whole with water. Continuing neuromuscular electronic stimulation. * Continue PLANT MACHINIST. Hypertension precedes the CVA. * All antihypertensives have been discontinued for blood pressure is running low. * Continued hydralazine on an as-needed basis. * Unclear why her blood pressure has normalized compared to hypertension prior to CVA. Will continue to monitor. Constipation. * Continue senna 1 tablet p.o. twice daily. * Will schedule polyethylene glycol starting 11/23/2017. Received p.r.n. dose today, 11/22/2017. * Improved initially with resumption of her usual diet after improvement in swallowing. Seasonal allergies. Continue cetirizine 10 mg daily. Anxiety and history of PTSD. Continue bupropion and p.r.n. clonazepam. * She does not feel that she needs a psychiatry consult regarding her dreams especially now that her sleep is improved. Prophylaxis. The question of DVT prophylaxis was discussed with Neurosurgery. They approve pharmacologic DVT prophylaxis. She is refusing SCDs at night; discontinue 11/09/2017. Initiated subcutaneous heparin 5000 units subcutaneous q.8 hours. She dislikes the injection so changed to enoxaparin 40 mg subcutaneous q.day starting 5 03/01/2018. FOLLOWUP: Hospital discharge information recommended followup with neurosurgeon , Dr. Maciel, in approximately 2 weeks, or approximately November 17. Discussed with CONNOR mon, 11/15/2017. Follow-up head CT has been ordered. He will discuss with Dr. Maciel regarding whether she needs to be seen or can follow up with Dr. Burrows after discharge from inpatient rehabilitation. DISPOSITION: Attended staffing, 15 min. Discussed with case management, dietitian, nursing, PT, OT, PLANT MACHINIST. Lives in apartment with her with an elevator to enter and then single-level. May be a good candidate for a day program at [facility] regarding cognition. Continue plan for discharge home with on 12/01/2017. This patient needs a wheelchair with an anti roll back device. She has a mobility limitation that significantly impairs 1 or more mobility related ADLs in the home, she has a functional deficit that cannot be resolved with a walker or cane, her home is adequate for accessing rooms maneuvering space and surfaces , a wheelchair will significantly improve the ability to participate in mobility related ADLs and she will use it regularly. She has not expressed and unwillingness to use the wheelchair, and she has sufficient physical and mental ability to use the wheelchair safely. She self propels the wheelchair and needs the anti roll back device because of use of ramps. 11/22/17 11:25 Subjective: No complaints this morning. Reports that she has had some return of movement to her left hand and has some soreness in the left forearm. Speech therapy is advancing diet to allow pills whole with water. Nurse notes constipation. Objective: Vital Signs Temp Pulse Resp BP Pulse Ox 36.7 C 63 18 113/75 94 11/22/17 07:57 11/22/17 07:57 11/22/17 07:57 11/22/17 07:57 11/22/17 07:57 Laboratory Results 11/06/17 06:40 11/21/17 11/22/17 11/23/17 05:59 05:59 05:59 Intake Total 1950 200 Balance 1950 200 - Time Spent With Patient Time Spent With Patient: Greater than 35 min floor time today, including more than 50% of time in coordination of care during staffing meeting, and counseling patient. Physical Exam - Physical Exam General Appearance: WD/WN, alert, no apparent distress Respiratory: No respiratory distress, No accessory muscle use Skin: normal color, warm/dry Neuro/Psych: alert, normal mood/affect, oriented x 3, motor weakness (Left upper and lower extremities), other (Self propels wheelchair independently with right leg and right arm.) ICD10 Worksheet Patient Problems: Problems Problem Status Onset Hemorrhagic cerebrovascular accident (CVA) Acute
[2017-11-22] MEDS: CETIRIZINE 10 MG TAB PO SCH (20:34)
[2017-11-23] MEDS: POLYETHYLENE GLYCOL 3350 17 GM PKT PO SCH (08:40)
[2017-11-23] MEDS: buPROPion XL 150 MG TAB PO SCH (08:41)
[2017-11-23] MEDS: ENOXAPARIN 40 MG/0.4 ML SYR SC SCH (08:41)
[2017-11-23] MEDS: SENNOSIDES 1 TAB PO SCH ×3 (08:41→21:02)
[2017-11-23] MEDS: BACLOFEN 10 MG TAB PO SCH ×3 (08:41→20:56)
--- NOTE | 2017-11-23 10:15 | SOAPPROG ---
[facility] Progress Note Assessment/Plan: 47-year-old woman status post right basal ganglia hemorrhagic stroke with left- sided hemiparesis. Today's update: Spasticity improved on baclofen 10 mg 3 times a day, no negative impact on function or cognition so far. Blood pressure within normal limits without any antihypertensives. A total of 35 min was spent on the floor in the care of the patient, the majority of which was spent in counseling coordination of care regarding strategies for spasticity management including oral medications, targeted injected therapy, as well as spinal cord pump. Issues reviewed without change today include urinary urgency and incontinence, constipation, DVT prophylaxis, hypertension, anxiety and history of PTSD. Plan to follow up with Neurosurgery after discharge. 11/07/17 10:10 11/11/17 15:52 11/12/17 11:43 11/14/17 10:39 11/16/17 10:40 11/23/17 10:10 Subjective: Chief complaint: Spasticity Patient denies any new shortness of breath or chest pain, no new numbness, tingling, or weakness. She is tolerating therapies well and making progress. Staff generally reports that her function is better with the low dose of baclofen that was implemented, 10 mg 3 times a day. She denies any cognitive changes or memory problems on the new medication. They had questions regarding spasticity management strategies as well as medication side effects and I spoke at length with him about these things. I also recommended that she follow up with the rehab doctor after discharge. Objective: Vital Signs Temp Pulse Resp BP Pulse Ox 36.7 C 66 16 117/78 93 11/23/17 06:50 11/23/17 06:50 11/23/17 06:50 11/23/17 06:50 11/23/17 06:50 Laboratory Results 11/06/17 06:40 11/22/17 11/23/17 11/24/17 05:59 05:59 05:59 Intake Total 2160 Balance 2160 Physical Exam - Physical Exam General Appearance: WD/WN, alert, no apparent distress EENT: No scleral icterus (R), No scleral icterus (L) Respiratory: No respiratory distress, No accessory muscle use Cardiac/Chest: normal peripheral pulses, regular rate, rhythm, No edema Skin: normal color, warm/dry, No cyanosis Neuro/Psych: alert, oriented x 3, No normal mood/affect (Normal mood but flat affect, dense left hemiparesis. Trace spasticity 1 on the modified Daina scale in the upper limb) ICD10 Worksheet Patient Problems: Problems Problem Status Onset Hemorrhagic cerebrovascular accident (CVA) Acute
[2017-11-23] MEDS: CETIRIZINE 10 MG TAB PO SCH (20:56)
[2017-11-24] MEDS: POLYETHYLENE GLYCOL 3350 17 GM PKT PO SCH (08:00)
[2017-11-24] MEDS: BACLOFEN 10 MG TAB PO SCH ×3 (08:00→21:17)
[2017-11-24] MEDS: SENNOSIDES 1 TAB PO SCH ×2 (08:00→21:16)
[2017-11-24] MEDS: ENOXAPARIN 40 MG/0.4 ML SYR SC SCH (08:00)
[2017-11-24] MEDS: buPROPion XL 150 MG TAB PO SCH (08:00)
--- NOTE | 2017-11-24 14:17 | SOAPPROG ---
SOAP Progress Note Assessment/Plan: Assessment: Left upper and lower extremity hemiplegia, status post right basal ganglia hemorrhagic CVA on 10/26/2017. * Initial functional independence measure 53 on 11/08/2017, improved to 67 as of 11/15/2017, and to 82 as of 11/22/2017. Standby assist for bed mobility, minimal assist for transfers with cues for sequencing. Ambulated 10-15 feet with single -point cane, AFO and assist of 2. Grooming and hygiene is supervision level except assistance to tie hair in ponytail. Upper body dressing requires supervision to minimal assist, lower body dressing requires minimal assist for standing to hike her pants. Bath transfer is done with minimal assist and bathing with supervision and cues. Toileting requires minimal assist. She has left neglect. She has return of movement to the left arm but is apraxic. * Increased tone interfering with mobility. Initiated baclofen 10 mg three times daily starting 11/20/2017. * Continue PT and OT to optimize mobility, activities of daily living to the modified independent level for eating and grooming and minimal assist level for bed mobility and transfers. Cognitive impairment and communication deficit. * Executive function improving with better impulse control and inhibition. * Continue Speech and Language Pathology. Dysphagia. * Advanced to regular diet with thin liquids, and as of 11/22/2017, medications whole with water. Continuing neuromuscular electronic stimulation. * Continue HOOF AND SHOE INSPECTOR. Hypertension precedes the CVA. * All antihypertensives have been discontinued for blood pressure is running low. * Continued hydralazine on an as-needed basis. * Unclear why her blood pressure has normalized compared to hypertension prior to CVA. Will continue to monitor. Constipation. * Continue senna 1 tablet p.o. twice daily and polyethylene glycol daily. * Improved initially with resumption of her usual diet after improvement in swallowing. Seasonal allergies. Continue cetirizine 10 mg daily. Anxiety and history of PTSD. Continue bupropion and p.r.n. clonazepam. Prophylaxis. The question of DVT prophylaxis was discussed with Neurosurgery. They approve pharmacologic DVT prophylaxis. She is refusing SCDs at night; discontinue 11/09/2017. Initiated subcutaneous heparin 5000 units subcutaneous q.8 hours. She dislikes the injection so changed to enoxaparin 40 mg subcutaneous q.day starting 5 03/01/2018. FOLLOWUP: Followup with neurosurgeon, Dr. Maciel after discharge from inpatient rehabilitation. DISPOSITION: Lives in apartment with her with an elevator to enter and then single-level. May be a good candidate for a day program at [facility] regarding cognition. Continue plan for discharge home with on 12/01/2017. This patient needs a wheelchair with an anti roll back device. She has a mobility limitation that significantly impairs 1 or more mobility related ADLs in the home, she has a functional deficit that cannot be resolved with a walker or cane, her home is adequate for accessing rooms maneuvering space and surfaces , a wheelchair will significantly improve the ability to participate in mobility related ADLs and she will use it regularly. She has not expressed and unwillingness to use the wheelchair, and she has sufficient physical and mental ability to use the wheelchair safely. She self propels the wheelchair and needs the anti roll back device because of use of ramps. 11/24/17 14:11 Subjective: No complaints. Sleeping well. Improving functionally. Seasonal allergy symptoms well controlled on cetirizine. Objective: Vital Signs Temp Pulse Resp BP Pulse Ox 36.9 C 67 12 107/61 95 11/23/17 20:00 11/24/17 06:18 11/24/17 06:18 11/24/17 06:18 11/24/17 06:18 Laboratory Results 11/06/17 06:40 11/23/17 11/24/17 11/25/17 05:59 05:59 05:59 Intake Total 2160 560 120 Balance 2160 560 120 Physical Exam - Physical Exam General Appearance: WD/WN, alert, no apparent distress Respiratory: No respiratory distress, No accessory muscle use Skin: normal color, warm/dry Neuro/Psych: alert, normal mood/affect, oriented x 3, motor weakness (Left upper and lower extremities), other (Working with OT, standing at race table, supporting weight with both legs and both hands. Practicing weight shift.) ICD10 Worksheet Patient Problems: Problems Problem Status Onset Hemorrhagic cerebrovascular accident (CVA) Acute
[2017-11-24] MEDS: CETIRIZINE 10 MG TAB PO SCH (21:17)
[2017-11-25] MEDS: BISACODYL 10 MG SUPP PR PRN (06:52)
[2017-11-25] MEDS: ENOXAPARIN 40 MG/0.4 ML SYR SC SCH (07:14)
[2017-11-25] MEDS: buPROPion XL 150 MG TAB PO SCH (08:52)
[2017-11-25] MEDS: POLYETHYLENE GLYCOL 3350 17 GM PKT PO SCH (08:52)
[2017-11-25] MEDS: BACLOFEN 10 MG TAB PO SCH ×3 (08:52→21:02)
[2017-11-25] MEDS: SENNOSIDES 1 TAB PO SCH ×2 (08:52→21:02)
--- NOTE | 2017-11-25 13:30 | SOAPPROG ---
SOAP Progress Note Assessment/Plan: Assessment: Left upper and lower extremity hemiplegia, status post right basal ganglia hemorrhagic CVA on 10/26/2017. * Initial functional independence measure 53 on 11/08/2017, improved to 67 as of 11/15/2017, and to 82 as of 11/22/2017. Standby assist for bed mobility, minimal assist for transfers with cues for sequencing. Ambulated 10-15 feet with single -point cane, AFO and assist of 2. Grooming and hygiene is supervision level except assistance to tie hair in ponytail. Upper body dressing requires supervision to minimal assist, lower body dressing requires minimal assist for standing to hike her pants. Bath transfer is done with minimal assist and bathing with supervision and cues. Toileting requires minimal assist. She has left neglect. She has return of movement to the left arm but is apraxic. * Increased tone interfering with mobility. Initiated baclofen 10 mg three times daily starting 11/20/2017. * Continue PT and OT to optimize mobility, activities of daily living to the modified independent level for eating and grooming and minimal assist level for bed mobility and transfers. Cognitive impairment and communication deficit. * Executive function improving with better impulse control and inhibition. * Continue Speech and Language Pathology. Dysphagia. * Advanced to regular diet with thin liquids, and as of 11/22/2017, medications whole with water. Continuing neuromuscular electronic stimulation. * Continue DIGITAL ASSET COORDINATOR. Hypertension precedes the CVA. * All antihypertensives have been discontinued for blood pressure is running low. * Continued hydralazine on an as-needed basis. * Unclear why her blood pressure has normalized compared to hypertension prior to CVA. Will continue to monitor. Constipation. * Continue senna 1 tablet p.o. twice daily and polyethylene glycol daily. * Improved initially with resumption of her usual diet after improvement in swallowing. Seasonal allergies. Continue cetirizine 10 mg daily. Anxiety and history of PTSD. Continue bupropion and p.r.n. clonazepam. Prophylaxis. The question of DVT prophylaxis was discussed with Neurosurgery. They approve pharmacologic DVT prophylaxis. She is refusing SCDs at night; discontinue 11/09/2017. Initiated subcutaneous heparin 5000 units subcutaneous q.8 hours. She dislikes the injection so changed to enoxaparin 40 mg subcutaneous q.day starting 5 03/01/2018. Plan: 11/25/17 13:30 Subjective: no new complaints. doing well with rehab Objective: Vital Signs Temp Pulse Resp BP Pulse Ox 36.6 C 80 15 119/90 H 96 11/25/17 08:00 11/25/17 08:00 11/25/17 08:00 11/25/17 08:00 11/25/17 08:00 Laboratory Results 11/06/17 06:40 11/24/17 11/25/17 11/26/17 05:59 05:59 05:59 Intake Total 560 770 Balance 560 770 Physical Exam - Physical Exam General Appearance: WD/WN, alert, no apparent distress Neck: supple Respiratory: lungs clear Cardiac/Chest: regular rate, rhythm, No edema Neuro/Psych: alert, normal mood/affect ICD10 Worksheet Patient Problems: Problems Problem Status Onset Hemorrhagic cerebrovascular accident (CVA) Acute
[2017-11-25] MEDS: CETIRIZINE 10 MG TAB PO SCH (21:02)
[2017-11-26] MEDS: POLYETHYLENE GLYCOL 3350 17 GM PKT PO SCH (08:07)
[2017-11-26] MEDS: buPROPion XL 150 MG TAB PO SCH (08:08)
[2017-11-26] MEDS: SENNOSIDES 1 TAB PO SCH ×2 (08:08→21:06)
[2017-11-26] MEDS: BACLOFEN 10 MG TAB PO SCH ×3 (08:08→21:06)
[2017-11-26] MEDS: ENOXAPARIN 40 MG/0.4 ML SYR SC SCH (10:10)
[2017-11-26] MEDS: CETIRIZINE 10 MG TAB PO SCH (21:06)
--- NOTE | 2017-11-26 21:23 | SOAPPROG ---
SOAP Progress Note Assessment/Plan: Assessment: Left upper and lower extremity hemiplegia, status post right basal ganglia hemorrhagic CVA on 10/26/2017. * Initial functional independence measure 53 on 11/08/2017, improved to 67 as of 11/15/2017, and to 82 as of 11/22/2017. Standby assist for bed mobility, minimal assist for transfers with cues for sequencing. Ambulated 10-15 feet with single -point cane, AFO and assist of 2. Grooming and hygiene is supervision level except assistance to tie hair in ponytail. Upper body dressing requires supervision to minimal assist, lower body dressing requires minimal assist for standing to hike her pants. Bath transfer is done with minimal assist and bathing with supervision and cues. Toileting requires minimal assist. She has left neglect. She has return of movement to the left arm but is apraxic. * Increased tone interfering with mobility. Initiated baclofen 10 mg three times daily starting 11/20/2017. * Continue PT and OT to optimize mobility, activities of daily living to the modified independent level for eating and grooming and minimal assist level for bed mobility and transfers. Cognitive impairment and communication deficit. * Executive function improving with better impulse control and inhibition. * Continue Speech and Language Pathology. Dysphagia. * Advanced to regular diet with thin liquids, and as of 11/22/2017, medications whole with water. Continuing neuromuscular electronic stimulation. * Continue CLERK. Hypertension precedes the CVA. * All antihypertensives have been discontinued for blood pressure is running low. * Continued hydralazine on an as-needed basis. * Unclear why her blood pressure has normalized compared to hypertension prior to CVA. Will continue to monitor. Constipation. * Continue senna 1 tablet p.o. twice daily and polyethylene glycol daily. * Improved initially with resumption of her usual diet after improvement in swallowing. Seasonal allergies. Continue cetirizine 10 mg daily. Anxiety and history of PTSD. Continue bupropion and p.r.n. clonazepam. Prophylaxis. The question of DVT prophylaxis was discussed with Neurosurgery. They approve pharmacologic DVT prophylaxis. She is refusing SCDs at night; discontinue 11/09/2017. Initiated subcutaneous heparin 5000 units subcutaneous q.8 hours. She dislikes the injection so changed to enoxaparin 40 mg subcutaneous q.day starting 5 03/01/2018. Plan: 11/25/17 13:30 Subjective: feels well. no new complaints Objective: Vital Signs Temp Pulse Resp BP Pulse Ox 36.8 C 76 16 132/92 H 94 11/26/17 18:26 11/26/17 18:26 11/26/17 18:26 11/26/17 18:26 11/26/17 18:26 Laboratory Results 11/06/17 06:40 11/25/17 11/26/17 11/27/17 05:59 05:59 05:59 Intake Total 770 1500 1380 Balance 770 1500 1380 Physical Exam - Physical Exam General Appearance: WD/WN, alert, no apparent distress Respiratory: No respiratory distress Neuro/Psych: alert, normal mood/affect, oriented x 3 ICD10 Worksheet Patient Problems: Problems Problem Status Onset Hemorrhagic cerebrovascular accident (CVA) Acute
[2017-11-27] MEDS: buPROPion XL 150 MG TAB PO SCH (08:31)
[2017-11-27] MEDS: POLYETHYLENE GLYCOL 3350 17 GM PKT PO SCH (08:31)
[2017-11-27] MEDS: SENNOSIDES 1 TAB PO SCH ×2 (08:31→21:03)
[2017-11-27] MEDS: BACLOFEN 10 MG TAB PO SCH ×3 (08:31→21:03)
[2017-11-27] MEDS: ENOXAPARIN 40 MG/0.4 ML SYR SC SCH (08:35)
--- NOTE | 2017-11-27 10:10 | SOAPPROG ---
SOAP Progress Note Assessment/Plan: Assessment: Left upper and lower extremity hemiplegia, status post right basal ganglia hemorrhagic CVA on 10/26/2017. * Initial functional independence measure 53 on 11/08/2017, improved to 67 as of 11/15/2017, and to 82 as of 11/22/2017. Standby assist for bed mobility, minimal assist for transfers with cues for sequencing. Ambulated 10-15 feet with single -point cane, AFO and assist of 2. Grooming and hygiene is supervision level except assistance to tie hair in ponytail. Upper body dressing requires supervision to minimal assist, lower body dressing requires minimal assist for standing to hike her pants. Bath transfer is done with minimal assist and bathing with supervision and cues. Toileting requires minimal assist. She has left neglect. She has return of movement to the left arm but is apraxic. * Increased tone interfering with mobility. Initiated baclofen 10 mg three times daily starting 11/20/2017. * Continue PT and OT to optimize mobility, activities of daily living to the modified independent level for eating and grooming and minimal assist level for bed mobility and transfers. Cognitive impairment and communication deficit. * Executive function improving with better impulse control and inhibition. * Continue Speech and Language Pathology. Dysphagia. * Advanced to regular diet with thin liquids, and as of 11/22/2017, medications whole with water. Continuing neuromuscular electronic stimulation. * Continue BLOOD AND PLASMA LABORATORY ASSISTANT. Hypertension precedes the CVA. * Had low blood pressures and amlodipine, lisinopril and metoprolol were discontinued. * Blood pressure starting to run high, 130s systolic and 80s to 90s diastolic, last last few days as of 11/27/2017. Restart lisinopril 5 mg p.o. Q.day starting 11/27/2017. Constipation. * Continue senna 1 tablet p.o. twice daily and polyethylene glycol daily. * Improved initially with resumption of her usual diet after improvement in swallowing. Seasonal allergies. Continue cetirizine 10 mg daily. Anxiety and history of PTSD. Continue bupropion and p.r.n. clonazepam. Prophylaxis. The question of DVT prophylaxis was discussed with Neurosurgery. They approve pharmacologic DVT prophylaxis. She is refusing SCDs at night; discontinue 11/09/2017. Initiated subcutaneous heparin 5000 units subcutaneous q.8 hours. She dislikes the injection so changed to enoxaparin 40 mg subcutaneous q.day starting 11/07/2017. FOLLOWUP: Followup with neurosurgeon, Dr. Maciel after discharge from inpatient rehabilitation. DISPOSITION: Lives in apartment with her with an elevator to enter and then single-level. May be a good candidate for a day program at [facility] [address] regarding cognition. Continue plan for discharge home with on 12/01/2017. This patient needs a wheelchair with an anti roll back device. She has a mobility limitation that significantly impairs 1 or more mobility related ADLs in the home, she has a functional deficit that cannot be resolved with a walker or cane, her home is adequate for accessing rooms maneuvering space and surfaces , a wheelchair will significantly improve the ability to participate in mobility related ADLs and she will use it regularly. She has not expressed and unwillingness to use the wheelchair, and she has sufficient physical and mental ability to use the wheelchair safely. She self propels the wheelchair and needs the anti roll back device because of use of ramps. 11/27/17 10:06 Subjective: Has noticed a sensation of cold on her right medial foot. When she touches it is not actually cold. Otherwise without complaints. Sleeping well, bowels moving, no difficulty urinating. Has noted that blood pressure is starting to run high and that causes her some anxiety. Objective: Vital Signs Temp Pulse Resp BP Pulse Ox 37.1 C 72 18 138/95 H 96 11/27/17 08:00 11/27/17 08:00 11/27/17 08:00 11/27/17 08:00 11/27/17 08:00 Laboratory Results 11/06/17 06:40 11/26/17 11/27/17 11/28/17 05:59 05:59 05:59 Intake Total 1500 1880 600 Balance 1500 1880 600 Physical Exam - Physical Exam General Appearance: WD/WN, alert, no apparent distress Respiratory: normal breath sounds, No crackles, No rhonchi, No wheezing Cardiac/Chest: regular rate, rhythm, No edema, No diastolic murmur, No systolic murmur Skin: normal color, warm/dry Neuro/Psych: alert, normal mood/affect, oriented x 3, motor weakness (Left upper and lower extremities), other (Self propels wheelchair independently with right arm and right leg.) ICD10 Worksheet Patient Problems: Problems Problem Status Onset Hemorrhagic cerebrovascular accident (CVA) Acute
[2017-11-27] MEDS: LISINOPRIL 5 MG TAB PO SCH (12:56)
[2017-11-27] MEDS: CETIRIZINE 10 MG TAB PO SCH (21:03)
[2017-11-28] MEDS: BACLOFEN 10 MG TAB PO SCH ×3 (08:32→20:49)
[2017-11-28] MEDS: LISINOPRIL 5 MG TAB PO SCH (08:32)
[2017-11-28] MEDS: SENNOSIDES 1 TAB PO SCH ×2 (08:32→20:49)
[2017-11-28] MEDS: buPROPion XL 150 MG TAB PO SCH (08:32)
[2017-11-28] MEDS: ENOXAPARIN 40 MG/0.4 ML SYR SC SCH (08:33)
[2017-11-28] MEDS: POLYETHYLENE GLYCOL 3350 17 GM PKT PO SCH (08:38)
[2017-11-28] MEDS ORDERED: LISINOPRIL 5 MG TAB PO SCH (11:43)
[2017-11-28] MEDS ORDERED: LISINOPRIL 10 MG TAB PO ONE (11:45)
--- NOTE | 2017-11-28 16:32 | SOAPPROG ---
SOAP Progress Note Assessment/Plan: Assessment: Left upper and lower extremity hemiplegia, status post right basal ganglia hemorrhagic CVA on 10/26/2017. * Initial functional independence measure 53 on 11/08/2017, improved to 67 as of 11/15/2017, and to 82 as of 11/22/2017. Standby assist for bed mobility, minimal assist for transfers with cues for sequencing. Ambulated 10-15 feet with single -point cane, AFO and assist of 2. Grooming and hygiene is supervision level except assistance to tie hair in ponytail. Upper body dressing requires supervision to minimal assist, lower body dressing requires minimal assist for standing to hike her pants. Bath transfer is done with minimal assist and bathing with supervision and cues. Toileting requires minimal assist. She has left neglect. She has return of movement to the left arm but is apraxic. * Increased tone interfering with mobility. Initiated baclofen 10 mg three times daily starting 11/20/2017. Increased to 15 mg three times daily starting . * Continue PT and OT to optimize mobility, activities of daily living to the modified independent level for eating and grooming and minimal assist level for bed mobility and transfers. Cognitive impairment and communication deficit. * Executive function improving with better impulse control and inhibition. * Continue Speech and Language Pathology. Dysphagia. * Advanced to regular diet with thin liquids, and as of 11/22/2017, medications whole with water. Continuing neuromuscular electronic stimulation. * Continue METAL FURNITURE GLAZIER. Hypertension precedes the CVA. * Had low blood pressures and amlodipine, lisinopril and metoprolol were discontinued. * Blood pressure starting to run high, 130s systolic and 80s to 90s diastolic, last last few days as of 11/27/2017. Restart lisinopril 5 mg p.o. Q.day starting 11/27/2017. Increased to 20 mg q.day starting 11/28/2017. Constipation. * Continue senna 1 tablet p.o. twice daily and polyethylene glycol daily. * Improved initially with resumption of her usual diet after improvement in swallowing. Seasonal allergies. Continue cetirizine 10 mg daily. Anxiety and history of PTSD. Continue bupropion and p.r.n. clonazepam. Prophylaxis. The question of DVT prophylaxis was discussed with Neurosurgery. They approve pharmacologic DVT prophylaxis. She is refusing SCDs at night; discontinue 11/09/2017. Initiated subcutaneous heparin 5000 units subcutaneous q.8 hours. She dislikes the injection so changed to enoxaparin 40 mg subcutaneous q.day starting 11/07/2017. Will not continue enoxaparin when she discharges home. FOLLOWUP: Followup with neurosurgeon, Dr. Maciel after discharge from inpatient rehabilitation. DISPOSITION: Lives in apartment with her with an elevator to enter and then single-level. May be a good candidate for a day program at [facility] regarding cognition. Continue plan for discharge home with on 12/01/2017. This patient needs a wheelchair with an anti roll back device. She has a mobility limitation that significantly impairs 1 or more mobility related ADLs in the home, she has a functional deficit that cannot be resolved with a walker or cane, her home is adequate for accessing rooms maneuvering space and surfaces , a wheelchair will significantly improve the ability to participate in mobility related ADLs and she will use it regularly. She has not expressed and unwillingness to use the wheelchair, and she has sufficient physical and mental ability to use the wheelchair safely. She self propels the wheelchair and needs the anti roll back device because of use of ramps. 11/28/17 16:31 Subjective: No complaints. Had a home visit today which went well and she feels about that. Therapy notes increased tone interfering with ambulation and transfers. Objective: Vital Signs Temp Pulse Resp BP Pulse Ox 37.1 C 77 18 132/84 H 96 11/28/17 08:00 11/28/17 08:00 11/28/17 08:00 11/28/17 12:37 11/28/17 08:00 Laboratory Results 11/06/17 06:40 11/27/17 11/28/17 11/29/17 05:59 05:59 05:59 Intake Total 1880 1490 800 Balance 1880 1490 800 Physical Exam - Physical Exam General Appearance: WD/WN, alert, no apparent distress Respiratory: normal breath sounds, No crackles, No rhonchi, No wheezing Cardiac/Chest: regular rate, rhythm, No edema, No diastolic murmur, No systolic murmur Skin: normal color, warm/dry Neuro/Psych: alert, normal mood/affect, oriented x 3, motor weakness (Left upper and lower extremities) ICD10 Worksheet Patient Problems: Problems Problem Status Onset Hemorrhagic cerebrovascular accident (CVA) Acute
[2017-11-28] MEDS: CETIRIZINE 10 MG TAB PO SCH (20:49)
[2017-11-29] MEDS: BACLOFEN 10 MG TAB PO SCH ×3 (08:21→21:00)
[2017-11-29] MEDS: POLYETHYLENE GLYCOL 3350 17 GM PKT PO SCH (08:21)
[2017-11-29] MEDS: ENOXAPARIN 40 MG/0.4 ML SYR SC SCH (08:21)
[2017-11-29] MEDS: LISINOPRIL 20 MG TAB PO SCH (08:21)
[2017-11-29] MEDS: buPROPion XL 150 MG TAB PO SCH (08:22)
[2017-11-29] MEDS: SENNOSIDES 1 TAB PO SCH ×2 (08:22→21:00)
--- NOTE | 2017-11-29 10:58 | SOAPPROG ---
SOAP Progress Note Assessment/Plan: Assessment: Left upper and lower extremity hemiplegia, status post right basal ganglia hemorrhagic CVA on 10/26/2017. * Initial functional independence measure 53 on 11/08/2017, improved to 67 as of 11/15/2017, and to 82 as of 11/22/2017, and to 87 as of 11/29/2017. Standby assist to minimal assist with bed mobility. Transfer with minimal assist. Ambulated 40-60 feet with a left AFO, a cane and 2 person assist. Has decreased proprioception and hip/trunk stability. Grooming and hygiene done with minimal assist to tie her hair, otherwise independent. Upper body dressing requires setup to standby assist and cues. Lower body dressing requires minimal assist for balance and with the AFO. Toilet transfer and toileting are done with contact guard to minimal assist shower transfer with contact guard to minimal assist and bathing with standby assist. * Increased tone interfering with mobility. Initiated baclofen 10 mg three times daily starting 11/20/2017. Increased to 15 mg three times daily starting . * Continue PT and OT to optimize mobility, activities of daily living to the modified independent level for eating and grooming and minimal assist level for bed mobility and transfers. Cognitive impairment and communication deficit. * Executive function improving with better impulse control and inhibition. Emerging insight into her condition. * Continue Speech and Language Pathology. Dysphagia. * Resolved. Hypertension precedes the CVA. * Had low blood pressures and amlodipine, lisinopril and metoprolol were discontinued. * Blood pressure starting to run high, 130s systolic and 80s to 90s diastolic, last last few days as of 11/27/2017. Restart lisinopril 5 mg p.o. Q.day starting 11/27/2017. Increased to 20 mg q.day starting 11/28/2017. Constipation. * Continue senna 1 tablet p.o. twice daily and polyethylene glycol daily. * Improved initially with resumption of her usual diet after improvement in swallowing. Seasonal allergies. Continue cetirizine 10 mg daily. Anxiety and history of PTSD. Continue bupropion and p.r.n. clonazepam. Prophylaxis. The question of DVT prophylaxis was discussed with Neurosurgery. They approve pharmacologic DVT prophylaxis. She is refusing SCDs at night; discontinue 11/09/2017. Initiated subcutaneous heparin 5000 units subcutaneous q.8 hours. She dislikes the injection so changed to enoxaparin 40 mg subcutaneous q.day starting 11/07/2017. Will not continue enoxaparin when she discharges home. FOLLOWUP: Followup with neurosurgeon, Dr. Maciel after discharge from inpatient rehabilitation. We will see Neuro-Ophthalmology Dr. Montoya regarding visual issues. Needs to establish with new PCP. DISPOSITION: Attended staffing, 15 min. Discussed with case management, nursing, dietitian, PT, OT, CONFIGURATION DEVELOPER. Lives in apartment with her with an elevator to enter and then single-level. Planning day program at [facility] regarding cognition. Home PT OT and CONFIGURATION DEVELOPER prior to initiating day program, which will not start until 12/08/2017. Continue plan for discharge home with on 12/01/2017. This patient needs a wheelchair with an anti roll back device. She has a mobility limitation that significantly impairs 1 or more mobility related ADLs in the home, she has a functional deficit that cannot be resolved with a walker or cane, her home is adequate for accessing rooms maneuvering space and surfaces , a wheelchair will significantly improve the ability to participate in mobility related ADLs and she will use it regularly. She has not expressed and unwillingness to use the wheelchair, and she has sufficient physical and mental ability to use the wheelchair safely. She self propels the wheelchair and needs the anti roll back device because of use of ramps. 11/29/17 10:54 Subjective: No complaints. Sleeping well. No fevers or chills, no cough or dyspnea. Bowels moving. No dysuria or urinary frequency. Objective: Vital Signs Temp Pulse Resp BP Pulse Ox 37.2 C 88 16 113/78 94 11/29/17 06:14 11/29/17 06:14 11/29/17 06:14 11/29/17 08:21 11/29/17 06:14 Laboratory Results 11/06/17 06:40 11/28/17 11/29/17 11/30/17 05:59 05:59 05:59 Intake Total 1490 2800 Balance 1490 2800 - Time Spent With Patient Time Spent With Patient: Greater than 35 min floor time today, including more than 50% of time in coordination of care during staffing meeting, and counseling patient. Physical Exam - Physical Exam General Appearance: WD/WN, alert, no apparent distress Respiratory: No respiratory distress, No accessory muscle use Skin: normal color, warm/dry Neuro/Psych: alert, normal mood/affect, oriented x 3, motor weakness (Left upper and lower extremities) ICD10 Worksheet Patient Problems: Problems Problem Status Onset Hemorrhagic cerebrovascular accident (CVA) Acute
[2017-11-29] MEDS: CETIRIZINE 10 MG TAB PO SCH (21:00)
[2017-11-30] MEDS: LISINOPRIL 20 MG TAB PO SCH (09:00)
[2017-11-30] MEDS: buPROPion XL 150 MG TAB PO SCH (09:01)
[2017-11-30] MEDS: BACLOFEN 10 MG TAB PO SCH ×3 (09:01→20:48)
[2017-11-30] MEDS: POLYETHYLENE GLYCOL 3350 17 GM PKT PO SCH (09:01)
[2017-11-30] MEDS: SENNOSIDES 1 TAB PO SCH ×2 (09:01→20:48)
[2017-11-30] MEDS: ENOXAPARIN 40 MG/0.4 ML SYR SC SCH (09:02)
--- NOTE | 2017-11-30 14:09 | SOAPPROG ---
SOAP Progress Note Assessment/Plan: Assessment: Left upper and lower extremity hemiplegia, status post right basal ganglia hemorrhagic CVA on 10/26/2017. * Initial functional independence measure 53 on 11/08/2017, improved to 67 as of 11/15/2017, and to 82 as of 11/22/2017, and to 87 as of 11/29/2017. Standby assist to minimal assist with bed mobility. Transfer with minimal assist. Ambulated 40-60 feet with a left AFO, a cane and 2 person assist. Has decreased proprioception and hip/trunk stability. Grooming and hygiene done with minimal assist to tie her hair, otherwise independent. Upper body dressing requires setup to standby assist and cues. Lower body dressing requires minimal assist for balance and with the AFO. Toilet transfer and toileting are done with contact guard to minimal assist shower transfer with contact guard to minimal assist and bathing with standby assist. * Increased tone interfering with mobility. Initiated baclofen 10 mg three times daily starting 11/20/2017. Increased to 15 mg three times daily starting . * Continue PT and OT to optimize mobility, activities of daily living to the modified independent level for eating and grooming and minimal assist level for bed mobility and transfers. Cognitive impairment and communication deficit. * Executive function improving with better impulse control and inhibition. Emerging insight into her condition. * Continue Speech and Language Pathology. Dysphagia. * Resolved. Hypertension precedes the CVA. * Had low blood pressures and amlodipine, lisinopril and metoprolol were discontinued. * Blood pressure starting to run high, 130s systolic and 80s to 90s diastolic, last last few days as of 11/27/2017. Restart lisinopril 5 mg p.o. Q.day starting 11/27/2017. Increased to 20 mg q.day starting 11/28/2017. Constipation. * Continue senna 1 tablet p.o. twice daily and polyethylene glycol daily. * Improved initially with resumption of her usual diet after improvement in swallowing. Seasonal allergies. Continue cetirizine 10 mg daily. Anxiety and history of PTSD. Continue bupropion and p.r.n. clonazepam. Prophylaxis. The question of DVT prophylaxis was discussed with Neurosurgery. They approve pharmacologic DVT prophylaxis. She is refusing SCDs at night; discontinue 11/09/2017. Initiated subcutaneous heparin 5000 units subcutaneous q.8 hours. She dislikes the injection so changed to enoxaparin 40 mg subcutaneous q.day starting 11/07/2017. Will not continue enoxaparin when she discharges home. FOLLOWUP: Followup with neurosurgeon, Dr. Maciel after discharge from inpatient rehabilitation. We will see Neuro-Ophthalmology Dr. Montoya regarding visual issues. Has new PCP, Dr. Farhana Victor. Will make her own appointment with physiatry Dr. Garrett. DISPOSITION: Lives in apartment with her with an elevator to enter and then single-level. Planning day program at [facility] regarding cognition. Home PT OT and OIM CONSULTANT prior to initiating day program, which will not start until 12/08/2017. Discharge home with on 12/01/2017. This patient needs a wheelchair with an anti roll back device. She has a mobility limitation that significantly impairs 1 or more mobility related ADLs in the home, she has a functional deficit that cannot be resolved with a walker or cane, her home is adequate for accessing rooms maneuvering space and surfaces , a wheelchair will significantly improve the ability to participate in mobility related ADLs and she will use it regularly. She has not expressed and unwillingness to use the wheelchair, and she has sufficient physical and mental ability to use the wheelchair safely. She self propels the wheelchair and needs the anti roll back device because of use of ramps. 11/30/17 14:07 Subjective: No complaints. Looking for to going home tomorrow. Not in pain. No cough or dyspnea. Objective: Vital Signs Temp Pulse Resp BP Pulse Ox 37.1 C 79 16 124/93 H 94 11/29/17 20:00 11/29/17 20:00 11/29/17 20:00 11/30/17 09:00 11/29/17 20:00 Laboratory Results 11/06/17 06:40 11/29/17 11/30/17 12/01/17 05:59 05:59 05:59 Intake Total 2800 Balance 2800 Physical Exam - Physical Exam General Appearance: WD/WN, alert, no apparent distress Respiratory: No respiratory distress, No accessory muscle use Cardiac/Chest: No edema Skin: normal color, warm/dry Neuro/Psych: alert, normal mood/affect, abnormal cerebellar tests, motor weakness (Left upper and lower extremities) ICD10 Worksheet Patient Problems: Problems Problem Status Onset Hemorrhagic cerebrovascular accident (CVA) Acute
--- NOTE | 2017-11-30 14:10 | PDOREHIP ---
Admission [facility] - Admission - 3 Day Assessment Period Admission Date/Day 1: 11/03/17 Day 2: 11/04/17 Day 3: 11/05/17 Discharge [facility] - Discharge - 3 Day Assessment Period 2 Days Prior to Anticipated Discharge Date: 11/29/17 1 Day Prior to Anticipated Discharge Date: 11/30/17 Anticipated Discharge Date: 12/01/17 - Discharge Skin Conditions Unhealed Pressure Ulcer (1 or more/Stage 1 or >)-Discharge: 0. No
[2017-11-30] MEDS: CETIRIZINE 10 MG TAB PO SCH (20:48)
[2017-12-01 07:13] VITALS: BP 110/80
[2017-12-01] MEDS: SENNOSIDES 1 TAB PO SCH (08:41)
[2017-12-01] MEDS: LISINOPRIL 20 MG TAB PO SCH (08:41)
[2017-12-01] MEDS: ENOXAPARIN 40 MG/0.4 ML SYR SC SCH (08:41)
[2017-12-01] MEDS: buPROPion XL 150 MG TAB PO SCH (08:41)
[2017-12-01] MEDS: POLYETHYLENE GLYCOL 3350 17 GM PKT PO SCH (08:41)
[2017-12-01] MEDS: BACLOFEN 10 MG TAB PO SCH (08:41)
--- NOTE | 2017-12-01 13:16 | GDS ---
[f rep st] DISCHARGE SUMMARY ADMITTING DIAGNOSES: Debility, status post hemorrhagic stroke to the right basal ganglia with left upper and lower extremity weakness. DISCHARGE DIAGNOSES: Debility, status post hemorrhagic stroke to the right basal ganglia with left upper and lower extremity weakness. OTHER DISCHARGE DIAGNOSIS: Hypertension. COMPLICATIONS: There were none. CONSULTATIONS: There were none. PROCEDURES: There were none. HISTORY AND HOSPITAL COURSE: This patient was hospitalized at [facility] from 10/26 to 11/03. She presented there with left hemiparesis and left neglect. Imaging showed a hemorrhagic CVA to the right basal ganglia. She had serial brain imaging, which showed stability, and she did not require surgery. She had a very high blood pressure when she presented, which was eventually controlled on IV and then p.o. medications. She was medically stabilized and discharged for rehabilitation. She did well in rehabilitation. Her initial functional independence measure was 53 on 11/08/2017, which is consistent with prison level of care and needing assistance with most or all aspects of mobility and activities of daily living. She required moderate assist of 1 with cues for bed mobility. Seated balance required contact guard assist. Transfers required moderate to maximal assist of 1 for therapies and 2-person transfer per nursing. She only had trace of lower extremity movement. She was requiring minimal to moderate assist with upper body dressing and maximal assist for lower body dressing. She had steady improvement. Functional independence measure had improved to 87 by 11/29/2017, which is consistent with assisted living level of function. She required standby assist to minimal assist for bed mobility. She was accomplishing transfers with minimal assist. She ambulated 40-60 feet with a left ankle-foot orthosis, a cane and 2-person assist for weight shift and advancing the left lower extremity. She had decreased proprioception and decreased hip/trunk stability. She could accomplish grooming and hygiene independently, though she needed minimal assist to tie her hair as that requires 2 hands. Upper body dressing required setup to standby assist and cues. Lower body dressing required minimal assist for balance and to don the AFO. Toilet transfer and toileting were done with contact guard to minimal assist and shower transfer with contact guard to minimal assist. She was able to bathe with standby assist. She was noted to have cognitive impairment with decreased executive function. This improved with better impulse control and better inhibition. She had emerging insight into her condition. She had dysphagia when she was admitted, and this resolved completely during her stay. Regarding hypertension, she arrived on the rehabilitation unit on 3 different oral medications, and she had a steady decline in her blood pressure. All 3 medications were discontinued. Starting several days before discharge, she was noted to have elevated blood pressures again with systolic in the 130s and diastolic in the 80s to 90s. She was restarted on lisinopril, which was rapidly titrated to 20 mg a day starting 11/28/2017. Blood pressures have been adequately controlled since then. She had symptoms of seasonal allergies, which responded to cetirizine 10 mg daily. DISCHARGE PLAN: She is discharging today home with her in a 1-level apartment with an elevator to enter. CONDITION ON DISCHARGE: Good. DIET: Regular. ACTIVITY: Ad min, but she should have assistance or supervision for activities of daily living requiring mobility and for mobility. DISCHARGE MEDICATIONS: 1. Baclofen 15 mg p.o. t.i.d. 2. Bupropion XL 150 mg p.o. daily. 3. Cetirizine 10 mg p.o. q.h.s. 4. Lisinopril 20 mg p.o. daily. 5. Senna 1 p.o. b.i.d. 6. Polyethylene glycol 17 g p.o. daily p.r.n. 7. Senna 1 tablet p.o. b.i.d. p.r.n. 8. Fiber supplementation. 9. Clonazepam 0.25-0.5 mg p.o. b.i.d. p.r.n. 10. Acetaminophen 650 mg p.o. q.4 hours p.r.n. ISSUES TO BE ADDRESSED AT FOLLOWUP: 1. Functional status: She will continue PT and OT at home following her discharge. 2. Cognitive impairment. She has been accepted at a day program at [facility] for continued work with speech and language pathology regarding cognition. 3. Excess tone, which has been treated with baclofen, and regarding poststroke mobility issues. She has an appointment set with beam saw operator, Dr. Alma Garrett, to address these issues. 4. Visual disturbance. She will see neuro clinical training coordinator, Dr. Montoya. 5. Hypertension. This can be addressed by her primary care provider, Dr. Victor. Copy requested to: Dr. Farhana Victor /[id number]/MODL [email or web address]
== END 2017-12-01 12:42 | disposition home health service (06) | DRG 57 ==
LOC: BREH 11-03 11:00
PROVIDERS: ADMIT Internal Medicine; ATTEND Internal Medicine
PROC: F0636ZZ Communicative/Cognitive Integration Skills Treatment of Neurological System - Whole Body (ICD-10-PCS; principal; 2017-11-03)
PROC: F08Z7ZZ Vocational Activities and Functional Community or Work Reintegration Skills Treatment (ICD-10-PCS; principal; 2017-11-03)
PROC: F07M3ZZ Motor Function Treatment of Musculoskeletal System - Whole Body (ICD-10-PCS; principal; 2017-11-03)
DX: I69.354 Hemiplegia and hemiparesis following cerebral infarction affecting left non-dominant side (principal); I69.391 Dysphagia following cerebral infarction; E87.1 Hypo-osmolality and hyponatremia; F41.9 Anxiety disorder, unspecified; I10 Essential (primary) hypertension
CPT/HCPCS: 92507-GN; 92523-GN; 92526-GN; 92610-GN; 97110-GP; 97112-GO; 97112-GP; 97116-GP; 97162-GP; 97166-GO; 97530-GO; 97530-GP; 97535-GO; 97542-GO; 97542-GP; 99366-GN; 99366-GO; G0515-GO; J1644; J1650

== ENCOUNTER 2018-11-24 10:00 | Emergency (ER) | payer BC | END 2018-11-24 12:42 | disposition home or self-care (01) ==